=== PATIENT | female | born 1995 | race Caucasian/White ===

== ENCOUNTER 2017-01-03 20:42 | Emergency (ER) | payer MEDICAID ==
[~2017-01-03] VITALS: Ht 160 cm; Wt 61.7 kg
[~2017-01-03 20:42] MED LIST: ACET-2267 PO; ACET325T38 PO; BCP PO; BUTA1TAB55 PO; DOCU100C37 PO; FERR-84 PO; HYDR-34 PO; HYDR-3714 PO; HYDR-3820 PO; HYDR-757 PO; HYDR1TAB PO; IBUP-1780 PO; LACT1CAP64 PO; METH4TAB PO; METR500T PO; NORE1TAB43 PO; NYST1000 PO; OXYC-465 PO; PARO20TA5 PO; PENI500T PO; PREN1TAB86 PO; PRM25T PO; SERT50TA9 PO; SULF1TAB38 PO; SUMA25TA3 PO; TYLOX PO; [UNRECOGNIZED DRUG - OTHER] PO
--- OUTSIDE RECORDS SUMMARY | 2017-01-03 20:48 | XMS REPORT ---
Author Author KENNEDI ANN Organization [facility] Address [address] [place] [address] Care Team Providers Care Valet Parking Attendant Name Role Phone KENNEDI ANN Unavailable PROBLEMS Type Condition ICD9-CM Code [id number] Code Onset Dates Condition Status SNOMED Code Assessment care in third trimester Z34.93 Jun, Active ALLERGIES Substance Reaction Event Type Date Status Decadron Unknown Non Drug Allergy Jun, Active SOCIAL HISTORY No smoking Hx information available PLAN OF CARE VITAL SIGNS Height 63.25 in 2016-06-30 Weight 167.1 lbs 2016-06-30 Heart Rate 84 bpm 2016-06-30 Respiratory Rate 18 2016-06-30 BMI 29.367 kg/m2 2016-06-30 Blood pressure systolic 118 mmHg 2016-06-30 Blood pressure diastolic 74 mmHg 2016-06-30 MEDICATIONS Medication Instructions Dosage Frequency Start Date End Date Duration Status Zofran 4 MG Orally 2 times a day 1 tablet as needed 12h Nov, 30 days Active Tylenol 325 MG Orally every 6 hrs 1 tablet as needed 6h Active Docusate Sodium 100 MG Orally twice a day 1 capsule as needed 12h 07 Jun, 2016 Jul, 30 day(s) Active Ferrous Sulfate 324 (65 Fe) MG Orally twice a day 1 tablet 12h Mar, 30 day(s) Active Classic 28-0.8 MG Orally Once a day as directed 24h Nov, 90 days Active RESULTS Name Result Date Reference Range UA OB DIP (IN HOUSE) 2016-06-30 Glucose Negative Protein negative PROCEDURES Procedure Date Ordered Related Diagnosis Body Site URINE-NO MICRO Jun 30, 2016 Office Visit, Est Pt., Level 3 Jun 30, 2016 IMMUNIZATIONS No Known Immunizations
[2017-01-03 22:01] LABS: BASOPHILS % (AUTO) 0 % (0-10); EOSINOPHILS # (AUTO) 0.2 10^3/uL (0.0-0.3); EOSINOPHILS % (AUTO) 3 % (0-10); LYMPHOCYTES % (AUTO) 39 % (12-44); MEAN CORPUSCULAR HEMOGLOBIN 31 PG (25-34); MEAN CORPUSCULAR HGB CONC 34 G/DL (32-36); MEAN CORPUSCULAR VOLUME 89 FL (80-99); MEAN PLATELET VOLUME 10.9 FL (7.4-10.4); MONOCYTES # (AUTO) 0.5 X 10^3 (0.0-1.0); MONOCYTES % (AUTO) 7 % (0-12); NEUTROPHILS % (AUTO) 52 % (42-75); PLATELET COUNT 233 10^3/uL (130-400); RED BLOOD COUNT 4.17 10^6/uL (4.35-5.85); RED CELL DISTRIBUTION WIDTH 13.7 % (10.0-14.5); WHITE BLOOD COUNT 7.7 10^3/uL (4.3-11.0)
[2017-01-03 22:08] LABS: BILIRUBIN,URINE NEGATIVE (NEGATIVE); KETONES,URINE 1+ (NEGATIVE); LEUKOCYTE ESTERASE ,URINE 2+ (NEGATIVE); NITRITE,URINE NEGATIVE (NEGATIVE); PH,URINE 5 (5-9); PROTEIN,URINE 3+ (NEGATIVE); UROBILINOGEN,URINE NORMAL (NORMAL)
--- NOTE | 2017-01-03 22:08 | ED GU-Female ---
General Chief Complaint: -Female Stated Complaint: MENSTRUATING X 1 MONTH,PASSING CLOTS Nursing Triage Note: Pt. advised she has been experiencing vaginal bleeding for approx. 42 days and has been experiencing severe cramping. Nursing Sepsis Screen: No Definite Risk Source: patient Exam Limitations: no limitations History of Present Illness Time seen by provider: 22:08 Initial Comments 21-year-old female patient presents to the emergency department with 42 day onset of vaginal bleeding. Patient reports she has had lower abdominal cramping intermittently. States she was taken off of her control shortly before the vaginal bleeding began. Patient states she has always been irregular. Today only has spotting. Timing/Duration: intermittent, other (42 day onset) Severity/Quality: cramping Location: suprapubic Radiation: none Activities at Onset: none Prior Genitourinary Problems: similar symptoms Allergies and Home Medications Allergies Coded Allergies: dexamethasone (Unverified Adverse Reaction, Intermediate, 09/04/13) Home Medications Hydrocodone/Acetaminophen 1 Each Tablet, 1 TAB PO Q6H, #20 Prescribed by: BRII LEIVA on 09/27/16 1333 Metronidazole 500 Mg Tablet, 500 MG PO BID, #14 Ref 0 Prescribed by: YAJAIRA PÉREZ on 01/04/17 0001 Nitrofurantoin Monohyd/M-Cryst 100 Mg Capsule, 1 TAB PO BID, #14 Ref 0 Prescribed by: YAJAIRA PÉREZ on 01/04/17 0000 Tramadol HCl 50 Mg Tablet, 50 MG PO Q4H PRN for PAIN, #14 Ref 0 Prescribed by: YAJAIRA PÉREZ on 01/04/17 0000 Constitutional: No chills, No diaphoresis, No dizziness, No fever, No malaise, No weakness Respiratory: No cough, No short of breath Cardiovascular: No chest pain, No palpitations, No syncope Gastrointestinal: see HPI, abdominal pain (suprapubic abdominal cramping), No constipation, No diarrhea, No hematemesis, No loss of appetite, No melena, No nausea, No vomiting Genitourinary: see HPI, denies burning, denies discharge, denies dysuria, denies frequency, denies flank pain, denies hematuria, pain, other (vaginal bleeding) Musculoskeletal: no symptoms reported Skin: no symptoms reported Psychiatric/Neurological: No Symptoms Reported Hematologic/Lymphatic: See HPI, Denies Anemia, Denies Blood Clots, Denies Easy Bleeding, Denies Easy Bruising, Denies Swollen Glands All Other Systemes Reviewed Negative Unless Noted: Yes (Negative excepted noted.) Past Eqquant-Nxjyhl-Wjmscx Hx Patient Social History Alcohol Use: Denies Use Recreational Drug Use: No Drug of Choice: methamphetamines Type Used: Cigarettes Recent Foreign Travel: No Contact w/Someone Who Travel: No Recent Infectious Disease Expo: No Recent Hopitalizations: Yes ( et hematoma removal) Immunizations Up To Date Tetanus Booster (TDap): Less than 5yrs Date of Influenza Vaccine: Jun 17, 2016 Seasonal Allergies Seasonal Allergies: No Surgeries HX Surgeries: Yes (KIDNEY STONE REMOVAL; X 1) Surgeries: Section, Tonsillectomy Respiratory Hx Respiratory Disorders: No Cardiovascular Hx Cardiac Disorders: No Neurological Hx Neurological Disorders: No Reproductive System : No Hx : 1 Hx Para: 1 Hx Reproductive Disorders: No Sexually Transmitted Disease: No HIV/AIDS: No Female Reproductive Disorders: Menstrual Problems (history of irregular menstrual cycles) Genitourinary Hx Genitourinary Disorders: Yes Genitourinary Disorders: Kidney Stones Gastrointestinal Hx Gastrointestinal Disorders: Yes Gastrointestinal Disorders: Gall Bladder Disease Musculoskeletal Hx Musculoskeletal Disorders: No Endocrine Hx Endocrine Disorders: No HEENT HX ENT Disorders: Yes HEENT Disorders: Tonsilitis Cancer Hx Cancer: No Psychosocial Hx Psychiatric Problems: No Integumentary HX Skin/Integumentary Disorder: No Blood Transfusions Hx Blood Disorders: No Reviewed Nursing Assessment Reviewed/Agree w Nursing PMH: Yes Family Medical History Significant Family History: No Pertinent Family Hx Family Medial History: Patient reports no known family medical history. Physical Exam Vital Signs Capillary Refill : Less Than 3 Seconds General Appearance: WD/WN, no apparent distress Cardiovascular: normal peripheral pulses, regular rate, rhythm, no edema, no murmur Respiratory: lungs clear, normal breath sounds, no respiratory distress Gastrointestinal: normal bowel sounds, soft, no organomegaly, No distended, guarding (suprapubic), No rebound, tenderness (suprapubic), No hernia, No mass Pelvic: normal external exam, normal adnexa, no cerv. motion tender, no masses , discharge (off-white discharge with a small amount of dark blood noted in the vagina.), No lesions, vaginal bleeding (small amount of dark blood noted.), other (suprapubic tenderness noted.) Back: normal inspection, no CVA tenderness Extremities: no pedal edema, normal capillary refill Neurologic/Psychiatric: alert, normal mood/affect, oriented x 3 Skin: normal color, warm/dry Focused Exam Lactic Acid Level Progress/Results/Core Measures Results/Orders Lab Results My Orders Vital Signs/I&O Blood Pressure Mean: 94 Point of Care Testing Urine -Bedside: Negative Diagnostic Imaging Diagonstic Imaging: Ultrasound Plain Films/CT/US/NM/MRI: pelvis Comments Unremarkable uterus. Normal thickness endometrium. Right ovary unremarkable. Left ovary not visualized. No free fluid noted. Reviewed: Other ([facility] report reviewed.) Departure Communication Progress Notes Laboratory and diagnostic findings discussed with the patient. Patient reports improvement in symptoms with morphine. Plan for discharge to home. Patient instructed to follow-up as an outpatient with the air transport professionals of her choice or her primary care physician. Patient given prescriptions for Flagyl, tramadol, and Macrobid. Impression Impression: Primary Impression: Bacterial vaginosis Additional Impressions: Menorrhagia Urinary tract infection Disposition: HOME, SELF-CARE Condition: Improved Departure-Patient Inst. Decision time for Depature: 23:59 Referrals: CAMERON YIN DANIEL J MD (PCP/Family) Primary Care Physician EUGENE CALHOUN MD, ANGELA C DO Patient Instructions: Bacterial Vaginosis (DC), IRREGULAR VAGINAL BLEEDING Add. Discharge Instructions: All discharge instructions reviewed with patient and/or family. Voiced understanding. Medications as instructed. Tylenol Extra Strength over-the- counter as directed for pain. Ibuprofen 800 mg by mouth every 8 hours as needed for pain. Follow-up with the air transport professionals of your choice for recheck and possible need for further evaluation. Call tomorrow morning for appointment time. Return to the emergency department for worsened symptoms or any other concerns. Scripts Metronidazole (Metronidazole) 500 Mg Tablet 500 MG PO BID, #14 TAB 0 Refills Prov: YAJAIRA PÉREZ 01/04/17 Tramadol HCl (Tramadol HCl) 50 Mg Tablet 50 MG PO Q4H Y for PAIN, #14 TAB 0 Refills Prov: YAJAIRA PÉREZ 01/04/17 Nitrofurantoin Monohyd/M-Cryst (Macrobid 100 mg Capsule) 100 Mg Capsule 1 TAB PO BID, #14 CAP 0 Refills Prov: YAJAIRA PÉREZ 01/04/17 YAJAIRA PÉREZ Jan 03, 2017 22:08
[2017-01-03 22:09] LABS: PROTHROMBIN TIME PATIENT 13.1 SEC (12.2-14.7)
[2017-01-03 22:18] LABS: ALANINE AMINOTRANSFERASE 17 U/L (0-55); ALBUMIN 4.8 G/DL (3.2-4.5); ANION GAP 11 MMOL/L (5-14); ASPARTATE AMINO TRANSFERASE 14 U/L (5-34); BILIRUBIN,TOTAL 0.5 MG/DL (0.1-1.0); BLOOD UREA NITROGEN 12 MG/DL (7-18); BUN/CREATININE RATIO 15; CALCIUM 9.6 MG/DL (8.5-10.1); CARBON DIOXIDE 22 MMOL/L (21-32); CHLORIDE 110 MMOL/L (98-107); GFR ESTIMATED > 60; GLUCOSE 106 MG/DL (70-105); POTASSIUM 3.5 MMOL/L (3.6-5.0); SODIUM 143 MMOL/L (135-145)
[2017-01-03] MEDS ORDERED: morphine INJ 10 MG/ML 1ML (SYR OR VIAL) IM STA (22:22)
[2017-01-04] MEDS ORDERED: TRAM50TA2 PO
[2017-01-04] MEDS ORDERED: NITR-65 PO
[2017-01-04] MEDS ORDERED: METR500T21 PO (00:01)
[2017-01-04 00:59] VITALS: BP 117/78
--- NOTE | 2017-01-04 08:04 | Diagnostic Imaging Report ---
INDICATION: Dysfunctional uterine bleeding since October. COMPARISON: 07/22/2016. DISCUSSION: Transvaginal sonographic evaluation of the pelvis was performed. The uterus is normal in echotexture and size measuring 8.2 x 5.0 x 3.6 cm. Normal endometrial thickness measuring 0.2 cm. The left ovary was nonvisualized, possibly obscured due to bowel. The right ovary is normal in echotexture and size with normal color Doppler blood flow. Normal follicular activity within the right ovary. The right ovary measures 4.9 x 2.2 x 3.5 cm. No abnormal adnexal mass or fluid. IMPRESSION: 1. Nonvisualization of the left ovary. Otherwise unremarkable pelvic ultrasound. 2. Agree with preliminary report. Dictated by: Dictated on workstation # [id number]
== END 2017-01-04 00:59 | disposition home or self-care (01) ==
LOC: EDUNIT# 20:42 → ER 20:44
DX: N92.0 Excessive and frequent menstruation with regular cycle (principal); N76.0 Acute vaginitis; N30.91 Cystitis, unspecified with hematuria
CPT/HCPCS: 36415; 76830; 80053; 81000; 84443; 84703; 85025; 85610; 85730; 87070; 87088; 87210; 87491; 87591; 96372; 99284

== ENCOUNTER 2017-06-13 09:55 | Emergency (ER) | payer MEDICAID ==
[~2017-06-13] VITALS: Ht 160 cm; Wt 61.7 kg
[~2017-06-13 09:55] MED LIST changes: +METR500T21 PO; +NITR-65 PO; +TRAM50TA2 PO
--- NOTE | 2017-06-13 11:41 | ED Headache ---
General Chief Complaint: Head/Cervical Problems Stated Complaint: MIGRAINE Nursing Sepsis Screen: No Definite Risk Source: patient Exam Limitations: no limitations History of Present Illness Time seen by provider: 11:39 Initial Comments To ER with a left-sided migraine headache for 3 days. She was seen at [facility] and given Toradol Benadryl and nausea medicine witH only temporary improvement. She went home and slept and the pain returned upon awakening the next day. She has a history of migraines and this is typical for her. Severity/Quality: moderate Location: temporal Associated Symptoms: nausea/vomiting Allergies and Home Medications Allergies Coded Allergies: dexamethasone (Unverified Adverse Reaction, Intermediate, 09/04/13) Constitutional: see HPI Eyes: No Symptoms Reported Ears, Nose, Mouth, Throat: no symptoms reported Respiratory: no symptoms reported Cardiovascular: no symptoms reported Genitourinary: no symptoms reported Musculoskeletal: no symptoms reported Skin: no symptoms reported Psychiatric/Neurological: Headache Past Mhysuvn-Gjvmed-Vvrndg Hx Patient Social History Alcohol Use: Occasionally Uses Number of Drinks Today: Alcohol Beverage of Choice: Wine Recreational Drug Use: No Drug of Choice: methamphetamines Type Used: Cigarettes Former Smoker, Quit: Oct 17, 2015 Recent Foreign Travel: No Contact w/Someone Who Travel: No Recent Infectious Disease Expo: No Recent Hopitalizations: Yes ( et hematoma removal) Immunizations Up To Date Tetanus Booster (TDap): Less than 5yrs Date of Influenza Vaccine: Jun 17, 2016 Seasonal Allergies Seasonal Allergies: No Surgeries History of Surgeries: Yes (KIDNEY STONE REMOVAL; X 1) Surgeries: Section, Gallbladder, Tonsillectomy Respiratory History of Respiratory Disorde: No Cardiovascular History of Cardiac Disorders: No Neurological History of Neurological Disord: Yes Neurological Disorders: Headaches /Migraines Reproductive System Hx Reproductive Disorders: No Sexually Transmitted Disease: No HIV/AIDS: No Female Reproductive Disorders: Menstrual Problems Genitourinary History of Genitourinary Disor: Yes Genitourinary Disorders: Kidney Stones Gastrointestinal History of Gastrointestinal Di: Yes Gastrointestinal Disorders: Gall Bladder Disease Musculoskeletal History of Musculoskeletal Dis: No Endocrine History of Endocrine Disorders: No HEENT HEENT Disorders: Tonsilitis Cancer History of Cancer: No Psychosocial History of Psychiatric Problem: No Integumentary History of Skin or Integumenta: No Blood Transfusions History of Blood Disorders: No Family Medical History Significant Family History: No Pertinent Family Hx Family Medial History: Patient reports no known family medical history. Physical Exam Vital Signs Vital Sign - Last 12Hours 06/13/17 10:20 Temp 97.4 Pulse 56 Resp 18 B/P (MAP) 113/58 Pulse Ox 98 O2 Delivery Room Air Capillary Refill : Less Than 3 Seconds General Appearance: WD/WN, no apparent distress HEENT: PERRL/EOMI, normal ENT inspection Neck: non-tender, full range of motion Respiratory: normal breath sounds, no respiratory distress, no accessory muscle use Gastrointestinal: normal bowel sounds, non tender, soft Extremities: normal range of motion, non-tender Psychiatric: alert, oriented x 3 Crainal Nerves: normal hearing, normal speech, PERRL Skin: normal color, warm/dry Progress/Results/Core Measures Results/Orders My Orders Orders - ALEX RODRIGUEZ APRN Saline Lock/Iv-Start (06/13/17 11:33) Ketorolac Injection (Toradol Injection) (06/13/17 11:45) Ns Iv 1000 Ml (Sodium Chloride 0.9%) (06/13/17 11:45) Prochlorperazine Injection (Compazine In (06/13/17 11:45) Diphenhydramine Injection (Benadryl Inje (06/13/17 11:45) Vital Signs/I&O Vital Sign - Last 12Hours 06/13/17 10:20 Temp 97.4 Pulse 56 Resp 18 B/P (MAP) 113/58 Pulse Ox 98 O2 Delivery Room Air Blood Pressure Mean: 76 Departure Impression Impression: Primary Impression: Headache Disposition: 01 HOME, SELF-CARE Condition: Stable Departure-Patient Inst. Decision time for Depature: 11:41 Referrals: KENNEDI ANN MD (PCP/Family) Primary Care Physician Patient Instructions: Headache, Adult (DC) Add. Discharge Instructions: 1. Return to ER for any concerns 2. Follow-up with your doctor next week 3. All discharge instructions reviewed with patient and/or family. Voiced understanding. ALEX RODRIGUEZ APRN Jun 13, 2017 11:41
[2017-06-13] MEDS ORDERED: KETOROLAC 30 MG/ML VIAL IVP ONE (11:45)
[2017-06-13] MEDS ORDERED: diphenhydrAMINE 50 MG/ML INJ (BENADRYL) IVP ONE (11:45)
[2017-06-13] MEDS ORDERED: PROCHLORPERAZINE 10 MG/2ML INJ (COMPAZINE) IV ONE (11:45)
[2017-06-13] MEDS ORDERED: NS IV 1000 ML 1,000 ML IV SCH (11:45)
[2017-06-13 12:19] VITALS: BP 120/65
--- OUTSIDE RECORDS SUMMARY | 2017-06-13 13:22 | XMS REPORT ---
Author Author KENNEDI ANN Organization [facility] Address [address] [place] [address] Care Team Providers Care Building Performance Consultant Name Role Phone KENNEDI ANN Unavailable PROBLEMS Type Condition ICD9-CM Code [id number] Code Onset Dates Condition Status SNOMED Code [...]
--- OUTSIDE RECORDS SUMMARY | 2017-06-13 13:22 | XMS REPORT ---
Author Author KENNEDI ANN [facility] Address [address] [place] [address] Care Team Providers Care Tv News Director Name Role Phone KENNEDI ANN Unavailable PROBLEMS Unknown Problems ALLERGIES Unknown Allergies SOCIAL HISTORY No smoking Hx information available PLAN OF CARE VITAL SIGNS MEDICATIONS Unknown Medications RESULTS No Results PROCEDURES No Known procedures IMMUNIZATIONS No Known Immunizations
--- OUTSIDE RECORDS SUMMARY | 2017-06-13 13:22 | XMS REPORT ---
Author Author KENNEDI ANN [facility] Address [address] [place] [address] Care Team Providers Care Chocolate Refining Roller Name Role Phone KENNEDI ANN Unavailable PROBLEMS Unknown Problems ALLERGIES Unknown Allergies SOCIAL HISTORY No smoking Hx information available PLAN OF CARE VITAL SIGNS MEDICATIONS Unknown Medications RESULTS No Results PROCEDURES No Known procedures IMMUNIZATIONS No Known Immunizations
--- OUTSIDE RECORDS SUMMARY | 2017-06-13 13:22 | XMS REPORT ---
Author Author KENNEDI ANN [facility] Address [address] [place] [address] Care Team Providers Care Metal Reed Tuner Name Role Phone KENNEDI ANN Unavailable PROBLEMS Unknown Problems ALLERGIES Unknown Allergies SOCIAL HISTORY No smoking Hx information available PLAN OF CARE VITAL SIGNS MEDICATIONS Unknown Medications RESULTS No Results PROCEDURES No Known procedures IMMUNIZATIONS No Known Immunizations
--- OUTSIDE RECORDS SUMMARY | 2017-06-13 13:23 | XMS REPORT ---
Author KENNEDI Garduno [facility] [employer] Address Unknown Phone Unavailable Care Team Providers Care Property And Equipment Clerk Name Role Phone KENNEDI ANN CP Unavailable Allergies, Adverse Reactions, Alerts Substance Reaction Event Type Decadron Info Not Available Non Drug Allergy Problems Problem Type Condition Code Onset Dates Condition Status Assessment care in third trimester Z34.93 Active Medications Medication Code System Code Instructions Start Date End Date Status Dosage Zofran [facility] [address]-34 4 MG Orally 2 times a day Dec 09, 2015 1 tablet as needed Classic [facility] [address]-45 28-0.8 MG Orally Once a day Dec 09, [address] as [address] [facility] [address]-69 324 (65 Fe) MG Orally twice a day March [address] [facility] [address]-06 325 MG Orally every 6 hrs 1 tablet as needed Docusate Sodium [facility] [address]-36 100 MG Orally twice a day Jun 23, 2016 Jul 23, 2016 1 capsule as needed Procedures Procedure Coding System Code Date Office Visit, Est Pt., Level 3 CPT-4 43897 Jul 14, 2016 URINE-NO MICRO CPT-4 13927 Jul 14, 2016 Vital Signs Date/Time: Jul 14, 2016 Cardiac Monitoring Heart Rate 84 bpm Weight 170.6 lbs Height 63.25 in BMI 29.982 Index Blood Pressure Diastolic 78 mmHg Blood Pressure Systolic 124 mmHg Results Name Result Date Reference Range Unit Abnormality Flag UA OB DIP (IN HOUSE) ----Glucose Negative 20160714 ----Protein Trace [id number] Summary Purpose eClinicalWorks Submission
--- OUTSIDE RECORDS SUMMARY | 2017-06-13 13:23 | XMS REPORT ---
Author Author BLAIR KAUR Organization [employer] Address Unknown Phone Unavailable Care Team Providers Care Aircraft Tool Maker Name Role Phone BLAIR KAUR Unavailable Allergies No Known Allergies Problems Problem Type Condition Code Onset Dates Condition Status Problem Post depression F53 Active Problem Dysuria R30.0 Active Problem Generalized anxiety disorder F41.1 Active Medications No Known Medications Results No Known Results Summary Purpose [employer] Submission
--- OUTSIDE RECORDS SUMMARY | 2017-06-13 13:23 | XMS REPORT ---
Author Author BLAIR KAUR Organization [employer] Address Unknown Phone Unavailable Care Team Providers Care Cash Management Officer Name Role Phone BLAIR KAUR Unavailable Allergies No Known Allergies Problems No Known Problems Medications No Known Medications Results No Known Results Summary Purpose [employer] Submission
--- OUTSIDE RECORDS SUMMARY | 2017-06-13 13:23 | XMS REPORT ---
Author Author KENNEDI ANN Organization [employer] Address Unknown Phone Unavailable Care Team Providers Care Program Aide Name Role Phone KENNEDI ANN CP Unavailable Allergies No Known Allergies Problems Problem Type Condition Code Onset Dates Condition Status Assessment Normal , first Z34.00 Active Medications No Known Medications Procedures Procedure Coding System Code Date Office Visit, Est Pt., Level 3 CPT-4 26372 May 19, 2016 URINE-NO MICRO CPT-4 17012 May 19, 2016 Vital Signs Date/Time: May 19, 2016 Cardiac Monitoring Heart Rate 84 bpm Weight 155.5 lbs Height 63.25 in BMI 27.33 Index Blood Pressure Diastolic 78 mmHg Blood Pressure Systolic 128 mmHg Results No Known Results Summary Purpose [employer] Submission
--- OUTSIDE RECORDS SUMMARY | 2017-06-13 13:23 | XMS REPORT ---
Author Author JV STRATTON Organization [facility] Address [address] [place] [address] Care Team Providers Care Liquor Merchant Name Role Phone CHAYITO JV Unavailable PROBLEMS Type Condition ICD9-CM Code [id number] Code Onset Dates Condition Status SNOMED Code Assessment care in third trimester Z34.93 Jun, Active Assessment 39 weeks gestation of Z3A.39 Jun, Active [id number] ALLERGIES Substance Reaction Event Type Date Status Decadron Unknown Non Drug Allergy Jun, Active SOCIAL HISTORY No smoking Hx information available PLAN OF CARE VITAL SIGNS Height 63.25 in 2016-07-07 Weight 171 lbs 2016-07-07 Heart Rate 80 bpm 2016-07-07 Respiratory Rate 18 2016-07-07 BMI 30.052 kg/m2 2016-07-07 Blood pressure systolic 120 mmHg 2016-07-07 Blood pressure diastolic 68 mmHg 2016-07-07 MEDICATIONS Medication Instructions Dosage Frequency Start Date End Date Duration Status Ferrous Sulfate 324 (65 Fe) MG Orally twice a day 1 tablet 12h 22 Mar, 2016 30 day(s) Active Classic 28-0.8 MG Orally Once a day as directed 24h Nov, 90 days Active Docusate Sodium 100 MG Orally twice a day 1 capsule as needed 12h 07 Jun, 2016 Jul, 30 day(s) Active Zofran 4 MG Orally 2 times a day 1 tablet as needed 12h Nov, 30 days Active Tylenol 325 MG Orally every 6 hrs 1 tablet as needed 6h Active RESULTS Name Result Date Reference Range UA OB DIP (IN HOUSE) 2016-07-07 Glucose Negative Protein Trace PROCEDURES Procedure Date Ordered Related Diagnosis Body Site URINE-NO MICRO Jul 07, 2016 Office Visit, Est Pt., Level 2 Jul 07, 2016 IMMUNIZATIONS No Known Immunizations
--- OUTSIDE RECORDS SUMMARY | 2017-06-13 13:23 | XMS REPORT ---
Author Author KENNEDI ANN Organization [employer] Address Unknown Phone Unavailable Care Team Providers Care Associate Attorney Name Role Phone KENNEDI ANN Unavailable Allergies No Known Allergies Problems No Known Problems Medications No Known Medications Results No Known Results Summary Purpose [employer] Submission
--- OUTSIDE RECORDS SUMMARY | 2017-06-13 13:23 | XMS REPORT ---
Author Author JV STRATTON [facility] [employer] Address Unknown Phone Unavailable Care Team Providers Care Fibre Technologist Name Role Phone JV STRATTON Unavailable Allergies No Known Allergies Problems No Known Problems Medications No Known Medications Results No Known Results Summary Purpose [employer]ClinicalWorks Submission
--- OUTSIDE RECORDS SUMMARY | 2017-06-13 13:23 | XMS REPORT ---
Author BLAIR Lopez Organization [employer] Address Unknown Phone Unavailable Care Team Providers Care V/Stol Landing Signal Officer Name Role Phone BLAIR KAUR CP Unavailable Allergies No Known Allergies Problems Problem Type Condition Code Onset Dates Condition Status Problem Dysuria R30.0 Active Problem Major depressive disorder, single episode, unspecified F32.9 Active Medications No Known Medications Results No Known Results Summary Purpose [employer]ClinicalWorks Submission
--- OUTSIDE RECORDS SUMMARY | 2017-06-13 13:23 | XMS REPORT ---
Author YOVANNY Strauss [facility] [employer] Address Unknown Phone Unavailable Care Team Providers Care Terrazzo Polisher Name Role Phone YOVANNY MONTES CP Unavailable Allergies No Known Allergies Problems Problem Type Condition Code Onset Dates Condition Status Problem Post depression F53 Active Problem Major depressive disorder, single episode, unspecified F32.9 Active Problem Generalized anxiety disorder F41.1 Active Problem Dysuria R30.0 Active Medications No Known Medications Results No Known Results Summary Purpose [employer]ClinicalWorks Submission
--- OUTSIDE RECORDS SUMMARY | 2017-06-13 13:24 | XMS REPORT ---
Author Author KENNEDI ANN Organization [facility] Address [address] [place] [address] Care Team Providers Care Furniture Finisher Name Role Phone KENNEDI ANN Unavailable PROBLEMS Type Condition ICD9-CM Code [id number] Code Onset Dates Condition Status SNOMED Code Assessment care in third trimester Z34.93 May, Active ALLERGIES Unknown Allergies SOCIAL HISTORY No smoking Hx information available PLAN OF CARE VITAL SIGNS Height 63.25 in 2016-06-16 Weight 163.9 lbs 2016-06-16 BMI 28.805 kg/m2 2016-06-16 Blood pressure systolic 128 mmHg 2016-06-16 Blood pressure diastolic 76 mmHg 2016-06-16 MEDICATIONS Medication Instructions Dosage Frequency Start Date End Date Duration Status Zofran 4 MG Orally 3 times a day 1 tablet as needed 8h Nov, Active Classic 28-0.8 MG as directed Nov, Active Tylenol 325 MG Orally every 6 hrs 1 tablet as needed 6h Active Ferrous Sulfate 324 (65 Fe) MG Orally twice a day 1 tablet 12h Mar, 30 day(s) Active RESULTS Name Result Date Reference Range CULTURE, GROUP B STREP (VAGINAL) 2016-06-16 Strep Gp B Culture Negative Negative UA OB DIP (IN HOUSE) 2016-06-16 Glucose negative Protein trace PROCEDURES Procedure Date Ordered Related Diagnosis Body Site URINE-NO MICRO Jun 16, 2016 Office Visit, Est Pt., Level 3 Jun 16, 2016 LAB NOT BILLED BY [facility] Jun 16, 2016 IMMUNIZATIONS No Known Immunizations
--- OUTSIDE RECORDS SUMMARY | 2017-06-13 13:24 | XMS REPORT ---
Author Author BLAIR KAUR Organization [employer] Address Unknown Phone Unavailable Care Team Providers Care Precision Honer Name Role Phone BLAIR KAUR CP Unavailable Allergies, Adverse Reactions, Alerts Substance Reaction Event Type Decadron Info Not Available Non Drug Allergy Problems Problem Type Condition Code Onset Dates Condition Status Assessment Post depression F53 Active Medications Medication Code System Code Instructions Start Date End Date Status Dosage Tylenol [facility] [address]-50 325 MG Orally every 6 hrs 1 tablet as needed Sertraline HCl [facility] [address]-64 50 MG Orally Once a day Aug 02, 2016 1/2 tab daily for the first week, then full tablet daily Classic [facility] [address]-12 28-0.8 MG Orally Once a day Dec 09, 2015 as directed Procedures Procedure Coding System Code Date Office Visit, Est Pt., Level 4 CPT-4 85738 Aug 02, 2016 Vital Signs Date/Time: Aug 02, 2016 Cardiac Monitoring Heart Rate 70 bpm Weight 149.6 lbs Height 63.25 in BMI 26.29 Index Blood Pressure Diastolic 70 mmHg Blood Pressure Systolic 108 mmHg Results No Known Results Summary Purpose [employer] Submission
--- OUTSIDE RECORDS SUMMARY | 2017-06-13 13:24 | XMS REPORT ---
Author YOVANNY Strauss Organization [employer] Address Unknown Phone Unavailable Care Team Providers Care Batch Attendant Name Role Phone YOVANNY MONTES CP Unavailable Allergies No Known Allergies Problems Problem Type Condition Code Onset Dates Condition Status Problem Post depression F53 Active Problem Dysuria R30.0 Active Problem Generalized anxiety disorder F41.1 Active Medications No Known Medications Results No Known Results Summary Purpose [employer] Submission
--- OUTSIDE RECORDS SUMMARY | 2017-06-13 13:24 | XMS REPORT ---
Author Author JV STRATTON [facility] Address [address] [place] [address] Care Team Providers Care Pantographer Name Role Phone JV STRATTON Unavailable PROBLEMS Unknown Problems ALLERGIES Unknown Allergies SOCIAL HISTORY No smoking Hx information available PLAN OF CARE VITAL SIGNS MEDICATIONS Unknown Medications RESULTS No Results PROCEDURES No Known procedures IMMUNIZATIONS No Known Immunizations
--- OUTSIDE RECORDS SUMMARY | 2017-06-13 13:24 | XMS REPORT ---
Author Author JV STRATTON [facility] Address [address] [place] [address] Care Team Providers Care Welding Process Engineer Name Role Phone JV STRATTON Unavailable PROBLEMS Unknown Problems ALLERGIES Unknown Allergies SOCIAL HISTORY No smoking Hx information available PLAN OF CARE VITAL SIGNS MEDICATIONS Unknown Medications RESULTS No Results PROCEDURES No Known procedures IMMUNIZATIONS No Known Immunizations
--- OUTSIDE RECORDS SUMMARY | 2017-06-13 13:24 | XMS REPORT ---
Author Author KENNEDI ANN Organization [facility] Address [address] [place] [address] Care Team Providers Care Rivet Flunky Name Role Phone KENNEDI ANN Unavailable PROBLEMS Type Condition ICD9-CM Code [id number] Code Onset Dates Condition Status SNOMED Code Problem Generalized anxiety disorder F41.1 Active 26733797 Problem Post depression F53 Active 31171164 Assessment Encounter for Depo-Provera contraception Z30.42 Aug, Active 988724358 Problem Dysuria R30.0 Active 02761924 Assessment Post depression F53 Aug, Active 85514881 ALLERGIES Substance Reaction Event Type Date Status Decadron Unknown Non Drug Allergy Aug, Active SOCIAL HISTORY No smoking Hx information available PLAN OF CARE VITAL SIGNS Height 63.25 in 2016-09-08 Weight 133 lbs 2016-09-08 Heart Rate 90 bpm 2016-09-08 Respiratory Rate 16 2016-09-08 BMI 23.37 kg/m2 2016-09-08 Blood pressure systolic 112 mmHg 2016-09-08 Blood pressure diastolic 80 mmHg 2016-09-08 MEDICATIONS Medication Instructions Dosage Frequency Start Date End Date Duration Status Sertraline HCl 50 MG Orally Once a day 1 tablet 24h Aug, 30 day (s) Active Abilify 2 MG Orally Once a day 1 tablet 24h Aug, Active Paxil 20 MG Orally Once a day 1 tablet in the morning 24h Jul, 30 day(s) Active RESULTS No Results PROCEDURES Procedure Date Ordered Related Diagnosis Body Site Office Visit, Est Pt., Level 3 Sep 08, 2016 DEPO PROVERA (150 MG/ML) Sep 08, 2016 THER/PROPH/DIAG INJ, SC/IM Sep 08, 2016 IMMUNIZATIONS Vaccine Route Administration Date Status DEPO PROVERA (150 MG/ML) IM Intramuscular Sep 08, 2016 Administered
--- OUTSIDE RECORDS SUMMARY | 2017-06-13 13:24 | XMS REPORT ---
Author Author SHIVAM JOHNSON [facility] [employer] Address Unknown Phone Unavailable Care Team Providers Care Skiver Hand Name Role Phone SHIVAM JOHNSON CP Unavailable Allergies, Adverse Reactions, Alerts Substance Reaction Event Type Decadron Info Not Available Non Drug Allergy Problems Problem Type Condition Code Onset Dates Condition Status Problem Post depression F53 Active Problem Dysuria R30.0 Active Problem Generalized anxiety disorder F41.1 Active Assessment Generalized anxiety disorder F41.1 Active Assessment depression F53 Active Medications No Known Medications Procedures Procedure Coding System Code Date Psychotherapy, patient &/family, 30 minutes, established patient CPT-4 24590 Aug 23, 2016 Results No Known Results Summary Purpose [employer] Submission
--- OUTSIDE RECORDS SUMMARY | 2017-06-13 13:24 | XMS REPORT ---
Author Author KENNEDI ANN Organization [employer] Address Unknown Phone Unavailable Care Team Providers Care Hull Molder Name Role Phone KENNEDI ANN Unavailable Allergies No Known Allergies Problems No Known Problems Medications No Known Medications Results No Known Results Summary Purpose [employer] Submission
--- OUTSIDE RECORDS SUMMARY | 2017-06-13 13:24 | XMS REPORT ---
Author Author KENNEDI ANN Organization [employer] Address Unknown Phone Unavailable Care Team Providers Care Pouncer Machine Name Role Phone KENNEDI ANN Unavailable Allergies No Known Allergies Problems No Known Problems Medications No Known Medications Results No Known Results Summary Purpose [employer] Submission
--- OUTSIDE RECORDS SUMMARY | 2017-06-13 13:24 | XMS REPORT ---
Author YOVANNY Strauss Organization [employer] Address Unknown Phone Unavailable Care Team Providers Care Plastic Mould Maker Name Role Phone YOVANNY MONTES CP Unavailable Allergies No Known Allergies Problems Problem Type Condition Code Onset Dates Condition Status Problem Post depression F53 Active Problem Dysuria R30.0 Active Problem Generalized anxiety disorder F41.1 Active Medications No Known Medications Results No Known Results Summary Purpose [employer] Submission
--- OUTSIDE RECORDS SUMMARY | 2017-06-13 13:24 | XMS REPORT ---
Author Author KENNEDI ANN Organization [employer] Address Unknown Phone Unavailable Care Team Providers Care Coating Line Worker Name Role Phone KENNEDI ANN Unavailable Allergies No Known Allergies Problems No Known Problems Medications No Known Medications Results No Known Results Summary Purpose [employer] Submission
--- OUTSIDE RECORDS SUMMARY | 2017-06-13 13:25 | XMS REPORT ---
Author KENNEDI Garduno [facility] [employer] Address Unknown Phone Unavailable Care Team Providers Care Fast Food Supervisor Name Role Phone KENNEDI ANN Unavailable Allergies No Known Allergies Problems Problem Type Condition Code Onset Dates Condition Status Assessment Encounter for immunization Z23 Active Assessment Normal , first Z34.00 Active Medications No Known Medications Procedures Procedure Coding System Code Date Office Visit, Est Pt., Level 3 CPT-4 77478 May 05, 2016 TDAP (BOOSTRIX) CPT-4 85885 May 05, 2016 URINE-NO MICRO CPT-4 34405 May 05, 2016 SINGLE IMMUNIZATION ADMIN CPT-4 86041 May 05, 2016 Vital Signs Date/Time: May 05, 2016 Blood Pressure Systolic 118 mmHg Weight 150.1 lbs Height 63.25 in Blood Pressure Diastolic 76 mmHg Results No Known Results Immunizations Vaccine Administration Date TDAP (BOOSTRIX) May 05, 2016 Summary Purpose [employer]Works Submission
--- OUTSIDE RECORDS SUMMARY | 2017-06-13 13:25 | XMS REPORT ---
Author YOVANNY Strauss [facility] [employer] Address Unknown Phone Unavailable Care Team Providers Care Tattoo Technician Name Role Phone YOVANNY MONTES CP Unavailable Allergies, Adverse Reactions, Alerts Substance Reaction Event Type Dexamethasone flushing Drug Allergy Problems Problem Type Condition Code Onset Dates Condition Status Problem Dysuria R30.0 Active Assessment Post depression F53 Active Problem Post depression F53 Active Medications Medication Code System Code Instructions Start Date End Date Status Dosage Paxil [facility] [address]-71 20 MG Orally Once a day Aug 12, 2016 1 tablet in the morning Diflucan [facility] [address]-68 150 MG Orally one time Aug 20, 2016 1 tablet today and one tablet in 4 days Tylenol [facility] [address]-88 325 MG Orally every 6 hrs 1 tablet as needed Classic [facility] [address]-69 28-0.8 MG Orally Once a day Dec 09, 2015 as directed Abilify [facility] [address]-37 2 MG Orally Once a day Aug 23, 2016 1 tablet Procedures Procedure Coding System Code Date Office Visit, Est Pt., Level 3 CPT-4 82936 Aug 23, 2016 Vital Signs Date/Time: Aug 23, 2016 Cardiac Monitoring Heart Rate 66 bpm Weight 140 lbs Height 63.25 in BMI 24.60 Index Blood Pressure Diastolic 80 mmHg Blood Pressure Systolic 110 mmHg Results No Known Results Summary Purpose [employer]ClinicalWorks Submission
--- OUTSIDE RECORDS SUMMARY | 2017-06-13 13:25 | XMS REPORT ---
Author Author KRISTY PRITCHARD [employer] Address Unknown Phone Unavailable Care Team Providers Care Medical Interpreter Name Role Phone KRISTY PRITCHARD CP Unavailable Allergies, Adverse Reactions, Alerts Substance Reaction Event Type Decadron Info Not Available Non Drug Allergy Problems Problem Type Condition Code Onset Dates Condition Status Assessment Major depressive disorder, single episode, unspecified F32.9 Active Assessment Other mental disorders complicating the puerperium O99.345 Active Problem Dysuria R30.0 Active Assessment Dysuria R30.0 Active Medications Medication Code System Code Instructions Start Date End Date Status Dosage Diflucan [facility] [address]-17 150 MG Orally one time Aug 20, 2016 1 tablet today and one tablet in 4 days Classic [facility] [address]-07 28-0.8 MG Orally Once a day Dec 09, 2015 as directed Paxil [facility] [address]-03 20 MG Orally Once a day Aug 12, 2016 1 tablet in the morning Cipro [facility] [address]-74 500 MG Orally Twice a day Aug 20, 2016 Aug 23, 2016 1 tablet Tylenol [facility] [address]-84 325 MG Orally every 6 hrs 1 tablet as needed Procedures Procedure Coding System Code Date Office Visit, Est Pt., Level 3 CPT-4 78615 Aug 20, 2016 URINALYSIS, AUTO, W/O SCOPE CPT-4 59062 Aug 20, 2016 Vital Signs Date/Time: Aug 20, 2016 Cardiac Monitoring Heart Rate 72 bpm Weight 143.7 lbs Height 63.25 in BMI 25.25 Index Blood Pressure Diastolic 62 mmHg Blood Pressure Systolic 108 mmHg Results Name Result Date Reference Range Unit Abnormality Flag UA LONG DIP (IN HOUSE) ----NARGIS trace [id number] ----NIT neg [id number] ----SG 1.015 [id number] ----KET neg [id number] ----GEORGI neg [id number] ----GLU neg [id number] ----Odor no [id number] ----pH 7.0 20160820 ----BLO 2+ [id number] ----URO 0.2 [id number] ----Protein neg [id number] ----Lot # [id number] ----Exp date [id number] ----Clarity yellow [id number] ----Color yellow [id number] Summary Purpose [employer]ClinicalWorks Submission
--- OUTSIDE RECORDS SUMMARY | 2017-06-13 13:25 | XMS REPORT ---
Author Author BLAIR KAUR Organization [employer] Address Unknown Phone Unavailable Care Team Providers Care Education Program Associate Name Role Phone BLAIR KAUR Unavailable Allergies No Known Allergies Problems No Known Problems Medications No Known Medications Results No Known Results Summary Purpose [employer] Submission
--- OUTSIDE RECORDS SUMMARY | 2017-06-13 13:26 | XMS REPORT ---
Author Author SHIVAM JOHNSON [facility] [employer] Address Unknown Phone Unavailable Care Team Providers Care Recreational Assistant Name Role Phone SHIVAM JOHNSON CP Unavailable Allergies No Known Allergies Problems Problem Type Condition Code Onset Dates Condition Status Assessment depression F53 Active Medications No Known Medications Procedures Procedure Coding System Code Date Psychotherapy, patient &/family, 30 minutes, new patient CPT-4 12159 Jul Results No Known Results Summary Purpose [employer]Works Submission
--- OUTSIDE RECORDS SUMMARY | 2017-06-13 13:26 | XMS REPORT ---
Author KENNEDI Garduno Organization [employer] Address Unknown Phone Unavailable Care Team Providers Care Reliability Manager Name Role Phone KENNEDI ANN Unavailable Allergies No Known Allergies Problems Problem Type Condition Code Onset Dates Condition Status Assessment care, first in third trimester Z34.03 Active Medications Medication Code System Code Instructions Start Date End Date Status Dosage Colace [facility] [address]-05 100 MG Orally Once a day March 10, 2016 May 09, 2016 1 capsule as needed Zofran [facility] [address]-36 4 MG Orally every 4-6 hours as needed March 10, 2016 1 tablet Tylenol [facility] [address]-90 325 MG Orally every 6 hrs 1 tablet as needed Classic [facility] [address]-05 28-0.8 MG Orally Dec 09, 2015 as directed Ferrous Sulfate [facility] [address]-37 324 (65 Fe) MG Orally twice a day March 1 tablet Procedures Procedure Coding System Code Date Office Visit, Est Pt., Level 3 CPT-4 20794 April 21, 2016 URINE-NO MICRO CPT-4 49158 April 21, 2016 Vital Signs Date/Time: April 21, 2016 Cardiac Monitoring Heart Rate 88 bpm Weight 148.7 lbs Height 63.25 in Blood Pressure Diastolic 68 mmHg Blood Pressure Systolic 118 mmHg Results No Known Results Summary Purpose [employer]ClinicalWorks Submission
--- OUTSIDE RECORDS SUMMARY | 2017-06-13 13:26 | XMS REPORT ---
Author Author KENNEDI ANN [facility] Address [address] [place] [address] Care Team Providers Care Promotions Manager Name Role Phone KENNEDI ANN Unavailable PROBLEMS Unknown Problems ALLERGIES Unknown Allergies SOCIAL HISTORY No smoking Hx information available PLAN OF CARE VITAL SIGNS MEDICATIONS Unknown Medications RESULTS No Results PROCEDURES No Known procedures IMMUNIZATIONS No Known Immunizations
--- OUTSIDE RECORDS SUMMARY | 2017-06-13 13:26 | XMS REPORT ---
Author Author BLAIR KAUR Organization [employer] Address Unknown Phone Unavailable Care Team Providers Care Flat Knitter Helper Name Role Phone BLAIR KAUR CP Unavailable Allergies, Adverse Reactions, Alerts Substance Reaction Event Type Decadron Info Not Available Non Drug Allergy Problems Problem Type Condition Code Onset Dates Condition Status Assessment Headache, unspecified headache type R51 Active Assessment Post depression F53 Active Medications Medication Code System Code Instructions Start Date End Date Status Dosage Paxil [facility] [address]-73 20 MG Orally Once a day Aug 12, 2016 1 tablet in the morning Tylenol [facility] [address]-99 325 MG Orally every 6 hrs 1 tablet as needed Classic [facility] [address]-76 28-0.8 MG Orally Once a day Dec 09, 2015 as directed Procedures Procedure Coding System Code Date Office Visit, Est Pt., Level 3 CPT-4 80466 Aug 12, 2016 Vital Signs Date/Time: Aug 12, 2016 Cardiac Monitoring Heart Rate 68 bpm Weight 146.5 lbs Height 63.25 in BMI 25.74 Index Blood Pressure Diastolic 64 mmHg Blood Pressure Systolic 112 mmHg Results No Known Results Summary Purpose [employer]ClinicalWorks Submission
--- OUTSIDE RECORDS SUMMARY | 2017-06-13 13:26 | XMS REPORT ---
Author Author KENNEDI ANN Organization [employer] Address Unknown Phone Unavailable Care Team Providers Care Manager Supply Chain Planning Name Role Phone KENNEDI ANN Unavailable Allergies No Known Allergies Problems Problem Type Condition Code Onset Dates Condition Status Assessment care in third trimester Z34.93 Active Medications Medication Code System Code Instructions Start Date End Date Status Dosage Ferrous Sulfate [facility] [address]-60 324 (65 Fe) MG Orally twice a day March [address] [facility] [address]-40 28-0.8 MG Orally Dec 09, 2015 as directed Zofran [facility] [address]-71 4 MG Orally every 4-6 hours as needed March 10, 2016 1 tablet Procedures Procedure Coding System Code Date Office Visit, Est Pt., Level 3 CPT-4 33791 Jun 02, 2016 URINE-NO MICRO CPT-4 77920 Jun 02, 2016 Vital Signs Date/Time: Jun 02, 2016 Blood Pressure Systolic 118 mmHg Weight 158.0 lbs Height 63.25 in BMI 27.768 Index Blood Pressure Diastolic 70 mmHg Results No Known Results Summary Purpose [employer]ClinicalWorks Submission
--- OUTSIDE RECORDS SUMMARY | 2017-06-13 13:27 | XMS REPORT ---
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
--- OUTSIDE RECORDS SUMMARY | 2017-06-13 13:27 | XMS REPORT ---
Author Author SHIVAM JOHNSON [facility] eClinical[employer] Address Unknown Phone Unavailable Care Team Providers Care Director Of Nurses Registry Name Role Phone SHIVAM JOHNSON CP Unavailable Allergies, Adverse Reactions, Alerts Substance Reaction Event Type Decadron Info Not Available Non Drug Allergy Problems Problem Type Condition Code Onset Dates Condition Status Problem Post depression F53 Active Problem Major depressive disorder, single episode, unspecified F32.9 Active Problem Generalized anxiety disorder F41.1 Active Assessment Generalized anxiety disorder F41.1 Active Assessment Other mental disorders complicating the puerperium O99.345 Active Problem Dysuria R30.0 Active Assessment depression F53 Active Medications No Known Medications Procedures Procedure Coding System Code Date Psych diagnostic evaluation, established patient CPT-4 04084 Aug 20, 2016 Results No Known Results Summary Purpose eClinicalWorks Submission
--- OUTSIDE RECORDS SUMMARY | 2017-06-13 13:27 | XMS REPORT ---
Author Author KENNEDI ANN Organization [employer] Address Unknown Phone Unavailable Care Team Providers Care Payroll Representative Name Role Phone KENNEDI ANN Unavailable Allergies No Known Allergies Problems No Known Problems Medications No Known Medications Results No Known Results Summary Purpose [employer]ClinicalWorks Submission
== END 2017-06-13 12:18 | disposition home or self-care (01) ==
LOC: EDUNIT# 09:55 → ER 09:58
DX: G43.909 Migraine, unspecified, not intractable, without status migrainosus (principal); Z87.19 Personal history of other diseases of the digestive system; Z87.442 Personal history of urinary calculi; Z90.89 Acquired absence of other organs; Z87.59 Personal history of other complications of pregnancy, childbirth and the puerperium; Z87.891 Personal history of nicotine dependence; Z86.39 Personal history of other endocrine, nutritional and metabolic disease
CPT/HCPCS: 96361; 96374; 96375

== ENCOUNTER 2017-06-15 18:12 | Emergency (ER) | payer MEDICAID ==
[~2017-06-15] VITALS: Ht 160 cm; Wt 52.2 kg
[2017-06-15] MEDS ORDERED: KETOROLAC 30 MG/ML VIAL IVP STA (19:27)
[2017-06-15] MEDS ORDERED: LACTATED RINGERS 1,000 ML IV ONE (19:27)
[2017-06-15 19:48] LABS: BASOPHILS # (AUTO) 0.1 10^3/uL (0.0-0.1); BASOPHILS % (AUTO) 1 % (0-10); EOSINOPHILS # (AUTO) 0.2 10^3/uL (0.0-0.3); EOSINOPHILS % (AUTO) 3 % (0-10); LYMPHOCYTES # (AUTO) 3.4 X 10^3 (1.0-4.0); LYMPHOCYTES % (AUTO) 44 % (12-44); MEAN CORPUSCULAR HEMOGLOBIN 31 PG (25-34); MEAN CORPUSCULAR HGB CONC 33 G/DL (32-36); MEAN CORPUSCULAR VOLUME 93 FL (80-99); MEAN PLATELET VOLUME 11.3 FL (7.4-10.4); MONOCYTES # (AUTO) 0.4 X 10^3 (0.0-1.0); MONOCYTES % (AUTO) 6 % (0-12); NEUTROPHILS # (AUTO) 3.5 X 10^3 (1.8-7.8); NEUTROPHILS % (AUTO) 46 % (42-75); PLATELET COUNT 257 10^3/uL (130-400); RED BLOOD COUNT 4.75 10^6/uL (4.35-5.85); RED CELL DISTRIBUTION WIDTH 13.1 % (10.0-14.5); WHITE BLOOD COUNT 7.7 10^3/uL (4.3-11.0)
[2017-06-15 20:08] LABS: ALANINE AMINOTRANSFERASE 14 U/L (0-55); ANION GAP 12 MMOL/L (5-14); ASPARTATE AMINO TRANSFERASE 16 U/L (5-34); BILIRUBIN,TOTAL 0.6 MG/DL (0.1-1.0); BLOOD UREA NITROGEN 10 MG/DL (7-18); BUN/CREATININE RATIO 14; CALCIUM 10.3 MG/DL (8.5-10.1); CARBON DIOXIDE 28 MMOL/L (21-32); CHLORIDE 103 MMOL/L (98-107); CREATININE SERUM 0.72 MG/DL (0.60-1.30); GFR ESTIMATED > 60; GLUCOSE 87 MG/DL (70-105); POTASSIUM 3.9 MMOL/L (3.6-5.0); SODIUM 143 MMOL/L (135-145); TOTAL PROTEIN 7.6 GM/DL (6.4-8.2)
--- NOTE | 2017-06-15 20:12 | Diagnostic Imaging Report ---
PROCEDURE: CT head without contrast. INDICATION: Headache for one week CT HEAD: Multiple contiguous axial CT images of the head were obtained. FINDINGS: Ventricles and sulci are within normal limits for size. There is no intracranial hemorrhage identified. There is no abnormal mass effect or shift of midline structures. IMPRESSION: Unremarkable CT of the head. Dictated by: Dictated on workstation # [id number]
[2017-06-15] MEDS ORDERED: diphenhydrAMINE 50 MG/ML INJ (BENADRYL) IVP ONE (20:30)
[2017-06-15] MEDS ORDERED: ORPHENADRINE 60 MG/2 ML (NORFLEX) AMP IV ONE (20:30)
[2017-06-15] MEDS ORDERED: ONDANSETRON 4 MG/2 ML (SDV) Z0FRAN ONE (21:17)
[2017-06-15] MEDS ORDERED: ONDA4TAB8 PO (21:27)
[2017-06-15] MEDS ORDERED: BUTA1CAP45 PO (21:27)
--- NOTE | 2017-06-15 21:27 | ED Headache ---
General Chief Complaint: Head/Cervical Problems Stated Complaint: HEADACHE,FALLING ASLEEP WHILE STANDING Nursing Triage Note: PT TO ED 7 FOR C/O HEADACHE ET INCREASED SLEEPINESS TODAY. PT REPORTS SHE WAS SEEN IN THIS ED X2 DAYS AGO FOR PERRY BUT DENIES IMPROVEMENT. PT DOES REPORT SHE TOOK PERCOCET YESTERDAY BUT DENIES TAKING ANY TODAY Nursing Sepsis Screen: No Definite Risk Allergies and Home Medications Allergies Coded Allergies: dexamethasone (Unverified Adverse Reaction, Intermediate, 09/04/13) Past Vjnkllx-Sqnaae-Daxppm Hx Patient Social History Alcohol Use: Denies Use Number of Drinks Today: Alcohol Beverage of Choice: Wine Recreational Drug Use: No Drug of Choice: methamphetamines Smoking Status: Current Everyday Smoker Type Used: Cigarettes Former Smoker, Quit: Oct 17, 2015 Recent Foreign Travel: No Contact w/Someone Who Travel: No Recent Infectious Disease Expo: No Recent Hopitalizations: Yes ( et hematoma removal) Immunizations Up To Date Tetanus Booster (TDap): Less than 5yrs Date of Influenza Vaccine: Jun 17, 2016 Seasonal Allergies Seasonal Allergies: No Surgeries History of Surgeries: Yes (KIDNEY STONE REMOVAL; X 1) Surgeries: Section, Gallbladder, Tonsillectomy Respiratory History of Respiratory Disorde: No Cardiovascular History of Cardiac Disorders: No Neurological History of Neurological Disord: Yes Neurological Disorders: Headaches /Migraines Reproductive System Hx Reproductive Disorders: No Sexually Transmitted Disease: No HIV/AIDS: No Female Reproductive Disorders: Menstrual Problems Genitourinary History of Genitourinary Disor: Yes Genitourinary Disorders: Kidney Stones Gastrointestinal History of Gastrointestinal Di: Yes Gastrointestinal Disorders: Gall Bladder Disease Musculoskeletal History of Musculoskeletal Dis: No Endocrine History of Endocrine Disorders: No HEENT HEENT Disorders: Tonsilitis Cancer History of Cancer: No Psychosocial History of Psychiatric Problem: No Integumentary History of Skin or Integumenta: No Blood Transfusions History of Blood Disorders: No Family Medical History Significant Family History: No Pertinent Family Hx Family Medial History: Patient reports no known family medical history. Physical Exam Vital Signs Vital Sign - Last 12Hours 06/15/17 19:11 Temp 97.5 Pulse 67 Resp 18 B/P (MAP) 139/86 Pulse Ox 100 O2 Delivery Room Air Capillary Refill : Less Than 3 Seconds Progress/Results/Core Measures Results/Orders Lab Results Laboratory Tests Test 06/15/17 19:40 Range/Units White Blood Count 7.7 4.3-11.0 10^3/uL Red Blood Count 4.75 4.35-5.85 10^6/uL Hemoglobin 14.6 11.5-16.0 G/DL Hematocrit 44 35-52 % Mean Corpuscular Volume 93 80-99 FL Mean Corpuscular Hemoglobin 31 25-34 PG Mean Corpuscular Hemoglobin Concent 33 32-36 G/DL Red Cell Distribution Width 13.1 10.0-14.5 % Platelet Count 257 130-400 10^3/uL Mean Platelet Volume 11.3 H 7.4-10.4 FL Neutrophils (%) (Auto) 46 42-75 % Lymphocytes (%) (Auto) 44 12-44 % Monocytes (%) (Auto) 6 0-12 % Eosinophils (%) (Auto) 3 0-10 % Basophils (%) (Auto) 1 0-10 % Neutrophils # (Auto) 3.5 1.8-7.8 X 10^3 Lymphocytes # (Auto) 3.4 1.0-4.0 X 10^3 Monocytes # (Auto) 0.4 0.0-1.0 X 10^3 Eosinophils # (Auto) 0.2 0.0-0.3 10^3/uL Basophils # (Auto) 0.1 0.0-0.1 10^3/uL Sodium Level 143 135-145 MMOL/L Potassium Level 3.9 3.6-5.0 MMOL/L Chloride Level 103 98-107 MMOL/L Carbon Dioxide Level 28 21-32 MMOL/L Anion Gap 12 5-14 MMOL/L Blood Urea Nitrogen 10 7-18 MG/DL Creatinine 0.72 0.60-1.30 MG/DL Estimat Glomerular Filtration Rate > 60 BUN/Creatinine Ratio 14 Glucose Level 87 70-105 MG/DL Calcium Level 10.3 H 8.5-10.1 MG/DL Total Bilirubin 0.6 0.1-1.0 MG/DL Aspartate Amino Transf (AST/SGOT) 16 5-34 U/L Alanine Aminotransferase (ALT/SGPT) 14 0-55 U/L Alkaline Phosphatase 69 40-136 U/L Total Protein 7.6 6.4-8.2 GM/DL Albumin 5.0 H 3.2-4.5 GM/DL TSH [place] Testing 1.29 0.35-4.94 UIU/ML Serum Test, Qualitative NEGATIVE NEGATIVE Monoscreen NEGATIVE NEGATIVE My Orders Orders - BISI MÁRQUEZ DO Saline Lock/Iv-Start (06/15/17 19:27) Cbc With Automated Diff (06/15/17 19:27) Comprehensive Metabolic Panel (06/15/17 19:27) Hcg,Qualitative Serum (06/15/17 19:27) Monotest (06/15/17 19:27) Thyroid Analyzer (06/15/17 19:27) Ct Head Wo (06/15/17 19:27) Saline Lock/Iv-Start (06/15/17 19:27) Lactated Ringers (Lr 1000 Ml Iv Solution (06/15/17 19:27) Ketorolac Injection (Toradol Injection) (06/15/17 19:27) Orphenadrine Injection (Norflex Injectio (06/15/17 20:30) Diphenhydramine Injection (Benadryl Inje (06/15/17 20:30) Ondansetron Injection (Zofran Injectio (06/15/17 21:30) Ondansetron Injection (Zofran Injectio (06/15/17 21:30) Fentanyl Injection (Sublimaze Injection (06/15/17 21:30) Medications Given in ED Current Medications Medications Dose Ordered Sig/Randy Route Start Time Stop Time Status Last Admin Dose Admin Lactated Ringer's 1,000 ml @ 0 mls/hr Q0M ONCE IV 06/15/17 19:27 06/15/17 19:28 DC 06/15/17 19:42 1,000 MLS/HR Orphenadrine Citrate 60 mg ONCE ONCE IV 06/15/17 20:30 06/15/17 20:31 DC 06/15/17 21:05 60 MG Vital Signs/I&O Vital Sign - Last 12Hours 06/15/17 19:11 Temp 97.5 Pulse 67 Resp 18 B/P (MAP) 139/86 Pulse Ox 100 O2 Delivery Room Air Blood Pressure Mean: 103 Departure Impression Impression: Primary Impression: Headache Disposition: 01 HOME, SELF-CARE Condition: Stable Departure-Patient Inst. Referrals: YOVANNY MONTES DO (PCP) Primary Care Physician SOHAIL BACK (Family) Primary Care Physician Patient Instructions: Headache, Adult (DC) Add. Discharge Instructions: LOTS OF CLEAR LIQUIDS--WATER, BROTH, JELLO, GATORADE FOLLOW UP WITH YOUR DR TOMORROW IF NO BETTER All discharge instructions reviewed with patient and/or family. Voiced understanding. Scripts Ondansetron (Zofran Odt) 4 Mg Tab.rapdis 4 MG PO Q4H for Nausea/Vomiting, #10 TAB Prov: BISI MÁRQUEZ DO 06/15/17 Butalb/Acetaminophen/Caffeine (Esgic Capsule) 1 Each Capsule 1-2 EACH PO Q6H Y for HEADACHE, #10 CAP Prov: BISI MÁRQUEZ DO 06/15/17 BISI MÁRQUEZ DO Jun 15, 2017 21:27
[2017-06-15] MEDS ORDERED: ONDANSETRON 4 MG/2 ML (SDV) Z0FRAN IVP ONE ×2 (21:30)
[2017-06-15] MEDS ORDERED: fentaNYL INJECTION 100 MCG/2 ML AMP IVP ONE (21:30)
[2017-06-15 22:13] VITALS: BP 130/84
== END 2017-06-15 22:13 | disposition home or self-care (01) ==
LOC: EDUNIT# 18:12 → ER 18:13
DX: R51 Headache (principal); F17.210 Nicotine dependence, cigarettes, uncomplicated; F12.90 Cannabis use, unspecified, uncomplicated; Z87.442 Personal history of urinary calculi; Z87.09 Personal history of other diseases of the respiratory system; Z87.59 Personal history of other complications of pregnancy, childbirth and the puerperium; Z90.89 Acquired absence of other organs
CPT/HCPCS: 36415; 70450; 80053; 84443; 84703; 85025; 86308; 96361; 96374; 96375

== ENCOUNTER 2018-01-14 16:59 | Emergency (ER) | payer MEDICAID ==
[~2018-01-14] VITALS: Ht 160 cm; Wt 49.9 kg
[~2018-01-14 16:59] MED LIST changes: +BUTA1CAP45 PO; +ONDA4TAB8 PO
[2018-01-14] MEDS ORDERED: NS IV 1000 ML 1,000 ML IV ONE (18:03)
[2018-01-14] MEDS ORDERED: NS 100 ML (IVPB) BAG IV ONE (18:15)
[2018-01-14] MEDS ORDERED: IOHEXOL 350 MG/ML 100 ML (OMNIPAQUE 350) VIAL IV ONE (18:15)
[2018-01-14 18:20] LABS: BASOPHILS % (AUTO) 0 % (0-10); EOSINOPHILS # (AUTO) 0.3 10^3/uL (0.0-0.3); EOSINOPHILS % (AUTO) 2 % (0-10); HEMATOCRIT 39 % (35-52); HEMOGLOBIN 13.1 G/DL (11.5-16.0); LYMPHOCYTES % (AUTO) 15 % (12-44); MEAN CORPUSCULAR HEMOGLOBIN 32 PG (25-34); MEAN CORPUSCULAR HGB CONC 34 G/DL (32-36); MEAN CORPUSCULAR VOLUME 94 FL (80-99); MEAN PLATELET VOLUME 10.8 FL (7.4-10.4); MONOCYTES # (AUTO) 0.8 X 10^3 (0.0-1.0); MONOCYTES % (AUTO) 6 % (0-12); NEUTROPHILS # (AUTO) 10.1 X 10^3 (1.8-7.8); NEUTROPHILS % (AUTO) 77 % (42-75); PLATELET COUNT 214 10^3/uL (130-400); RED BLOOD COUNT 4.11 10^6/uL (4.35-5.85); WHITE BLOOD COUNT 13.1 10^3/uL (4.3-11.0)
[2018-01-14] MEDS ORDERED: KETOROLAC 30 MG/ML VIAL IVP STA (18:27)
[2018-01-14 18:37] LABS: ALANINE AMINOTRANSFERASE 15 U/L (0-55); ALKALINE PHOSPHATASE 95 U/L (40-136); BILIRUBIN,TOTAL 0.7 MG/DL (0.1-1.0); BUN/CREATININE RATIO 18; CARBON DIOXIDE 24 MMOL/L (21-32); CHLORIDE 105 MMOL/L (98-107); CREATININE SERUM 0.66 MG/DL (0.60-1.30); GFR ESTIMATED > 60; GLUCOSE 138 MG/DL (70-105); SODIUM 139 MMOL/L (135-145); TOTAL PROTEIN 5.8 GM/DL (6.4-8.2)
[2018-01-14 19:36] LABS: BILIRUBIN,URINE NEGATIVE (NEGATIVE); CLARITY,URINE VERY CLOUDY; COLOR,URINE RED; GLUCOSE, URINE (UA) NEGATIVE (NEGATIVE); KETONES,URINE NEGATIVE (NEGATIVE); LEUKOCYTE ESTERASE ,URINE 3+ (NEGATIVE); NITRITE,URINE NEGATIVE (NEGATIVE); PH,URINE 7 (5-9); PROTEIN,URINE 3+ (NEGATIVE); UROBILINOGEN,URINE NORMAL (NORMAL)
--- NOTE | 2018-01-14 19:42 | Diagnostic Imaging Report ---
PROCEDURE: CT abdomen and pelvis with contrast, rule out appendicitis. TECHNIQUE: Multiple contiguous axial images were obtained through the abdomen and pelvis after the administration of intravenous contrast. INDICATION: Abdominal pain. COMPARISON: CT abdomen and pelvis without contrast 07/23/2016. FINDINGS: Lung bases are clear. Cholecystectomy. The appendix is negative. The liver, pancreas, spleen, adrenals, collecting systems and partially opacified bladder are negative. IUD. No free intraperitoneal air or fluid. No lymphadenopathy. No evidence of bowel obstruction or inflammation. IMPRESSION: No acute CT findings in the abdomen or pelvis. Dictated by: Dictated on workstation # [id number]
[2018-01-14 19:43] LABS: BACTERIA,URINE MODERATE /HPF; RBC,URINE 50-100 /HPF; WBC,URINE TNTC /HPF
[2018-01-14 19:44] LABS: SQUAMOUS EPITHELIAL CELL,UR >50 /HPF
[2018-01-14] MEDS ORDERED: cefTRIAXone INJECTION 1,000 MG in NS (IVPB) 100 ML IV ONE (20:00)
--- NOTE | 2018-01-14 20:00 | ED GU-Female ---
General Chief Complaint: -Female Stated Complaint: SEVERE ABD PAIN Nursing Triage Note: PT TO ED 10 PT STATES HAS ABD PAIN AND HAD GREEN DRAINAGE FROM VAGINA TODAY, PT STATES HAS BEEN HAVING PERIOD SINCE 12/21 WHEN HAD MERINA PUT IN. PT STATES HAD GREEN DRAINAGE TODAY. PT RATES PAIN 04/25. DENIES FEVER BUT HAS SOME NAUSEA Nursing Sepsis Screen: No Definite Risk History of Present Illness Date Seen by Provider: Jan 14, 2018 Time Seen by Provider: 17:30 Initial Comments 22-year-old female reports for lower abdominal pain and continued vaginal bleeding after placement of Mirena one month ago. She reports being a monogamous relationship for 10 months. She has noted green discharge over the last several days. Vaginal discharge over the last several days. No histories of STDs. Denies pain with intercourse. Timing/Duration: intermittent Severity/Quality: moderate (lower abdominal pain) Location: suprapubic Radiation: generalized flank Associated Symptoms: abdominal pain, dysuria, No lower back pain, No nausea/ vomiting, No nocturia, No polyuria, No swelling, No urinary frequency Allergies and Home Medications Allergies Coded Allergies: dexamethasone (Unverified Adverse Reaction, Intermediate, 09/04/13) Home Medications Butalb/Acetaminophen/Caffeine 1 Each Capsule, 1-2 EACH PO Q6H PRN for HEADACHE Prescribed by: BISI MÁRQUEZ on 06/15/172126 Metronidazole 500 Mg Tablet, 500 MG PO BID Prescribed by: MELVINA TEAGUE on 01/14/182057 Ondansetron 4 Mg Tab.rapdis, 4 MG PO Q4H Prescribed by: BISI MÁRQUEZ on 06/15/172126 Sulfamethoxazole/Trimethoprim 1 Each Tablet, 1 EACH PO BID Prescribed by: MELVINA TEAGUE on 01/14/182057 Patient Home Medication List Home Medication List Reviewed: Yes Constitutional: no symptoms reported, see HPI Genitourinary: see HPI, discharge, pain All Other Systemes Reviewed Negative Unless Noted: Yes Past Yxuoliw-Hqnzlr-Fymygu Hx Patient Social History Alcohol Use: Occasionally Uses Number of Drinks Today: Alcohol Beverage of Choice: Wine Recreational Drug Use: Yes (POT) Drug of Choice: methamphetamines Smoking Status: Current Everyday Smoker Type Used: Cigarettes Recent Foreign Travel: No Contact w/Someone Who Travel: No Recent Infectious Disease Expo: No Recent Hopitalizations: Yes ( et hematoma removal) Physical Abuse: No Sexual Abuse: No Immunizations Up To Date Tetanus Booster (TDap): Less than 5yrs Date of Influenza Vaccine: Jun 17, 2016 Seasonal Allergies Seasonal Allergies: No Surgeries History of Surgeries: Yes (KIDNEY STONE REMOVAL/LITHORIPSY; X 1) Surgeries: Section, Gallbladder, Renal, Tonsillectomy Respiratory History of Respiratory Disorde: No Cardiovascular History of Cardiac Disorders: No Neurological History of Neurological Disord: Yes Neurological Disorders: Headaches /Migraines Reproductive System : No (MERINA) Hx Reproductive Disorders: No Sexually Transmitted Disease: No HIV/AIDS: No Female Reproductive Disorders: Menstrual Problems Genitourinary History of Genitourinary Disor: Yes Genitourinary Disorders: Kidney Stones Gastrointestinal History of Gastrointestinal Di: Yes Gastrointestinal Disorders: Gall Bladder Disease Musculoskeletal History of Musculoskeletal Dis: No Endocrine History of Endocrine Disorders: No HEENT HEENT Disorders: Tonsilitis Cancer History of Cancer: No Psychosocial History of Psychiatric Problem: No Suicide Risk Score: 0 Integumentary History of Skin or Integumenta: No Blood Transfusions History of Blood Disorders: No Reviewed Nursing Assessment Reviewed/Agree w Nursing PMH: Yes Family Medical History Significant Family History: No Pertinent Family Hx Family Medial History: Patient reports no known family medical history. Physical Exam Vital Signs Vital Signs - First Documented 01/14/18 17:05 Temp 97.9 Pulse 111 Resp 18 B/P (MAP) 129/95 (106) Pulse Ox 100 Capillary Refill : Less Than 3 Seconds General Appearance: WD/WN, no apparent distress Neck: non-tender, full range of motion, supple Cardiovascular: normal peripheral pulses, regular rate, rhythm Respiratory: chest non-tender, lungs clear, normal breath sounds Gastrointestinal: normal bowel sounds, soft, No guarding, rebound, tenderness ( generalized to the lower abdomin) Pelvic: normal external exam, normal adnexa, no cerv. motion tender, discharge (trace clear to pink 10), No lesions, No mass, No tender w/ cervical motion, No vaginal bleeding Neurologic/Psychiatric: no motor/sensory deficits, alert, normal mood/affect, oriented x 3 Skin: normal color, warm/dry Progress/Results/Core Measures Suspected Sepsis Recent Fever Within 48 Hours: No Infection Criteria Present: None New/Unexplained Altered Menta: No Sepsis Screen: No Definite Risk Sepsis Diagnosis: SIRS Temperature:97.9 Pulse: 111 Respiratory Rate: 18 Laboratory Tests 01/14/18 18:10: White Blood Count 13.1H Blood Pressure 129 /95 Mean: 106 Laboratory Tests 01/14/18 18:10: Creatinine 0.66, Platelet Count 214, Total Bilirubin 0.7 Results/Orders Lab Results Laboratory Tests Test 01/14/18 18:10 01/14/18 19:25 01/14/18 20:20 Range/Units White Blood Count 13.1 H 4.3-11.0 10^3/uL Red Blood Count 4.11 L 4.35-5.85 10^6/uL Hemoglobin 13.1 11.5-16.0 G/DL Hematocrit 39 35-52 % Mean Corpuscular Volume 94 80-99 FL Mean Corpuscular Hemoglobin 32 25-34 PG Mean Corpuscular Hemoglobin Concent 34 32-36 G/DL Red Cell Distribution Width 12.0 10.0-14.5 % Platelet Count 214 130-400 10^3/uL Mean Platelet Volume 10.8 H 7.4-10.4 FL Neutrophils (%) (Auto) 77 H 42-75 % Lymphocytes (%) (Auto) 15 12-44 % Monocytes (%) (Auto) 6 0-12 % Eosinophils (%) (Auto) 2 0-10 % Basophils (%) (Auto) 0 0-10 % Neutrophils # (Auto) 10.1 H 1.8-7.8 X 10^3 Lymphocytes # (Auto) 2.0 1.0-4.0 X 10^3 Monocytes # (Auto) 0.8 0.0-1.0 X 10^3 Eosinophils # (Auto) 0.3 0.0-0.3 10^3/uL Basophils # (Auto) 0.0 0.0-0.1 10^3/uL Sodium Level 139 135-145 MMOL/L Potassium Level 3.0 L 3.6-5.0 MMOL/L Chloride Level 105 98-107 MMOL/L Carbon Dioxide Level 24 21-32 MMOL/L Anion Gap 10 5-14 MMOL/L Blood Urea Nitrogen 12 7-18 MG/DL Creatinine 0.66 0.60-1.30 MG/DL Estimat Glomerular Filtration Rate > 60 BUN/Creatinine Ratio 18 Glucose Level 138 H 70-105 MG/DL Calcium Level 9.0 8.5-10.1 MG/DL Total Bilirubin 0.7 0.1-1.0 MG/DL Aspartate Amino Transf (AST/SGOT) 14 5-34 U/L Alanine Aminotransferase (ALT/SGPT) 15 0-55 U/L Alkaline Phosphatase 95 40-136 U/L Total Protein 5.8 L 6.4-8.2 GM/DL Albumin 4.0 3.2-4.5 GM/DL Serum Test, Qualitative NEGATIVE NEGATIVE Urine Color RED H Urine Clarity VERY CLOUDY H Urine pH 7 5-9 Urine Specific Bruni 1.005 L 1.016-1.022 Urine Protein 3+ H NEGATIVE Urine Glucose (UA) NEGATIVE NEGATIVE Urine Ketones NEGATIVE NEGATIVE Urine Nitrite NEGATIVE NEGATIVE Urine Bilirubin NEGATIVE NEGATIVE Urine Urobilinogen NORMAL NORMAL MG/DL Urine Leukocyte Esterase 3+ H NEGATIVE Urine RBC (Auto) 5+ H NEGATIVE Urine RBC 50-100 H /HPF Urine WBC TNTC H /HPF Urine Squamous Epithelial Cells >50 H /HPF Urine Crystals NONE /LPF Urine Bacteria MODERATE H /HPF Urine Casts NONE /LPF Urine Mucus NEGATIVE /LPF Urine Culture Indicated YES Urine Opiates Screen POSITIVE H NEGATIVE Urine Oxycodone Screen NEGATIVE NEGATIVE Urine Methadone Screen NEGATIVE NEGATIVE Urine Propoxyphene Screen NEGATIVE NEGATIVE Urine Barbiturates Screen NEGATIVE NEGATIVE Ur Tricyclic Antidepressants Screen NEGATIVE NEGATIVE Urine Phencyclidine Screen NEGATIVE NEGATIVE Urine Amphetamines Screen POSITIVE H NEGATIVE Urine Methamphetamines Screen POSITIVE H NEGATIVE Urine Benzodiazepines Screen POSITIVE H NEGATIVE Urine Cocaine Screen NEGATIVE NEGATIVE Urine Cannabinoids Screen NEGATIVE NEGATIVE My Orders Orders - HO,MELVINA [employer]PER[employer] Ua Culture If Indicated (01/14/18 17:13) Ct Abd/Pelv W (Appendicitis) (01/14/18 18:03) Cbc With Automated Diff (01/14/18 18:03) Comprehensive Metabolic Panel (01/14/18 18:03) Hcg,Qualitative Serum (01/14/18 18:03) Saline Lock/Iv-Start (01/14/18 18:03) Ns Iv 1000 Ml (Sodium Chloride 0.9%) (01/14/18 18:03) Iohexol Injection (Omnipaque 350 Mg/Ml 1 (01/14/18 18:15) Ns (Ivpb) (Sodium Chloride 0.9% Ivpb Bag (01/14/18 18:15) Ketorolac Injection (Toradol Injection) (01/14/18 18:27) Urine Culture (01/14/18 19:25) Ceftriaxone Injection (Rocephin Injectio (01/14/18 20:00) Drug Screen Stat (Urine) (01/14/18 20:00) Wet Prep (01/14/18 20:05) Neisseria Gonorrhea Dna (01/14/18 20:05) Chlamydia Dna (01/14/18 20:05) Genital Culture (01/14/18 20:05) Melinda Prep (01/14/18 20:05) Fentanyl Injection (Sublimaze Injection (01/14/18 20:05) Ceftriaxone Injection (Rocephin Injectio (01/14/18 20:09) Ns (Ivpb) (Sodium Chloride 0.9% Ivpb Bag (01/14/18 20:09) Metronidazole Tablet (Flagyl Tablet) (01/14/18 20:30) Medications Given in ED Current Medications Medications Dose Ordered Sig/Randy Route Start Time Stop Time Status Last Admin Dose Admin Ceftriaxone Sodium 1000 mg/ Sodium Chloride 100 ml @ 200 mls/hr ONCE ONCE IV 01/14/18 20:00 01/14/18 20:29 DC 01/14/18 20:18 200 MLS/HR Iohexol 100 ml ONCE ONCE IV 01/14/18 18:15 01/14/18 20:11 DC 01/14/18 18:49 100 ML Metronidazole 500 mg ONCE ONCE PO 01/14/18 20:30 01/14/18 20:39 DC 01/14/18 21:09 500 MG Sodium Chloride 100 ml ONCE ONCE IV 01/14/18 18:15 01/14/18 20:11 DC 01/14/18 18:49 100 ML Sodium Chloride 1,000 ml @ 0 mls/hr Q0M ONCE IV 01/14/18 18:03 01/14/18 18:05 DC 01/14/18 18:18 1,000 MLS/HR Vital Signs/I&O Vital Sign - Last 12Hours 01/14/18 17:05 Temp 97.9 Pulse 111 Resp 18 B/P (MAP) 129/95 (106) Pulse Ox 100 Intake and Output 01/15/18 00:00 Intake Total 1000 ml Balance 1000 ml Capillary Refill : Less Than 3 Seconds Blood Pressure Mean: 106 Progress Note : Time: 17:30 Progress Note Initial evaluation completed, labs and 1 L normal saline. [address] abdomen and pelvis. Serum negative. 1844 CT negative for acute abdominal findings. Recommended pelvic exam. 1999 Rocephin 1 g IV and Flagyl 500 mg by mouth. 2044 charge instructions and return precautions reviewed with patient. All questions answered. Diagnostic Imaging Diagonstic Imaging: CT Plain Films/CT/US/NM/MRI: abdomen, pelvis Comments NAME: ALE KELLER [facility] REC#: [id number] PT STATUS: REG ER : 1995 PHYSICIAN: MELVINA TEAGUE ADMIT DATE: 01/14/18/ER Draft Date of Exam:01/14/18 CT ABD/PELV W (APPENDICITIS) PROCEDURE: CT abdomen and pelvis with contrast, rule out appendicitis. TECHNIQUE: Multiple contiguous axial images were obtained through the abdomen and pelvis after the administration of intravenous contrast. INDICATION: Abdominal pain. COMPARISON: CT abdomen and pelvis without contrast 07/23/2016. FINDINGS: Lung bases are clear. Cholecystectomy. The appendix is negative. The liver, pancreas, spleen, adrenals, collecting systems and partially opacified bladder are negative. IUD. No free intraperitoneal air or fluid. No lymphadenopathy. No evidence of bowel obstruction or inflammation. IMPRESSION: No acute CT findings in the abdomen or pelvis. Dictated on workstation # [id number] Dict: 01/14/181930 Trans: 01/14/181941 [id number] Interpreted by: FRANCES HERNANDEZ MD Electronically signed by: Departure Impression Impression: Primary Impression: Urinary tract infection Qualified Codes: N30.01 - Acute cystitis with hematuria Additional Impression: Bacterial vaginosis Disposition: HOME, SELF-CARE Condition: Improved Departure-Patient Inst. Decision time for Depature: 20:45 Referrals: YOVANNY MONTES DO (PCP) Primary Care Physician SOHAIL BACK (Family) Primary Care Physician Patient Instructions: Urinary Tract Infection, Adult (DC), Bacterial Vaginosis (DC) Add. Discharge Instructions: Eat 1 cup of yogurt daily. Increase water intake, and empty bladder every 2 hours while awake. Follow up with Dr. Kaur regarding the Mirena and continued vaginal bleeding. Take Bactrim and Flagyl as prescribed. May use tampons but otherwise vaginal rest (no intercourse or douching) May use Tylenol 650 mg alternating with ibuprofen 600 mg every 4 hours for pain or fever. Return to emergency department for fever greater than 101, increased abdominal pain, nausea and vomiting, or new problems. All discharge instructions reviewed with patient and/or family. Voiced understanding. Scripts Metronidazole (Flagyl) 500 Mg Tablet 500 MG PO BID, #10 TAB 0 Refills Prov: MELVINA TEAGUE 01/14/18 Sulfamethoxazole/Trimethoprim (Bactrim 400-80 mg Tablet) 1 Each Tablet 1 EACH PO BID for 5 Days, #10 TAB 0 Refills Prov: MELVINA TEAGUE 01/14/18 Copy Copies To 1: BLAIR KAUR MD, AMY ARNP Jan 14, 2018 20:00
[2018-01-14] MEDS ORDERED: fentaNYL INJECTION 100 MCG/2 ML AMP IVP STA (20:05)
[2018-01-14] MEDS ORDERED: NS (IVPB) 100 ML ONE (20:09)
[2018-01-14] MEDS ORDERED: cefTRIAXone 1 GM (ROCEPHIN) VIAL ONE (20:09)
[2018-01-14] MEDS ORDERED: metroNIDAZOLE 500 MG (FLAGYL) TAB PO ONE (20:30)
[2018-01-14] MEDS ORDERED: SULF1TAB34 PO (20:58)
[2018-01-14] MEDS ORDERED: METR500T PO (20:58)
[2018-01-14 21:00] LABS: AMPHETAMINE SCREEN, URINE POSITIVE (NEGATIVE); BARBITURATE SCREEN URINE NEGATIVE (NEGATIVE); BENZODIAZEPINES SCREEN URINE POSITIVE (NEGATIVE); CANNABINOID SCREEN, URINE NEGATIVE (NEGATIVE); COCAINE SCREEN URINE NEGATIVE (NEGATIVE); METHADONE STAT NEGATIVE (NEGATIVE); METHAMPHETAMINE SCREEN URINE S POSITIVE (NEGATIVE); OPIATE SCREEN URINE POSITIVE (NEGATIVE); OXYCODONE STAT NEGATIVE (NEGATIVE); PROPOXYPHENE STAT NEGATIVE (NEGATIVE); TRICYCLIC ANTIDEPRESSANTS SCRE NEGATIVE (NEGATIVE)
[2018-01-14 21:11] VITALS: BP 133/92
== END 2018-01-14 21:11 | disposition home or self-care (01) ==
LOC: EDUNIT# 16:59 → ER 17:01
DX: N39.0 Urinary tract infection, site not specified (principal); N76.0 Acute vaginitis; G43.909 Migraine, unspecified, not intractable, without status migrainosus; F12.90 Cannabis use, unspecified, uncomplicated; F15.90 Other stimulant use, unspecified, uncomplicated; F17.210 Nicotine dependence, cigarettes, uncomplicated; Z87.09 Personal history of other diseases of the respiratory system; Z87.19 Personal history of other diseases of the digestive system; Z87.442 Personal history of urinary calculi; Z87.59 Personal history of other complications of pregnancy, childbirth and the puerperium; Z90.89 Acquired absence of other organs; Z88.8 Allergy status to other drugs, medicaments and biological substances
CPT/HCPCS: 36415; 74177; 80053; 80306; 81000; 84703; 85025; 87070; 87088; 87186; 87210; 87220; 87491; 87591; 96361; 96365; 96375

== ENCOUNTER 2019-03-21 01:05 | Emergency (ER) | payer MEDICAID ==
[~2019-03-21] VITALS: Ht 160 cm; Wt 49.9 kg
[~2019-03-21 01:05] MED LIST changes: +METR-145 PO; -METR500T21 PO; +SULF1TAB34 PO
[2019-03-21] MEDS ORDERED: SULF1TAB35 PO (02:11)
[2019-03-21] MEDS ORDERED: NAPR-915 PO (02:11)
--- NOTE | 2019-03-21 02:11 | ED Integumentary General ---
General Chief Complaint: Bite-Animal/Human/Insect Stated Complaint: SPIDER BITE Allergies and Home Medications Allergies Coded Allergies: dexamethasone (Unverified Adverse Reaction, Intermediate, 09/04/13) Home Medications Butalb/Acetaminophen/Caffeine 1 Each Capsule, 1-2 EACH PO Q6H PRN for HEADACHE Prescribed by: BISI MÁRQUEZ on 06/15/172126 Metronidazole 500 Mg Tablet, 500 MG PO BID Prescribed by: MELVINA TEAGUE on 01/14/182057 Ondansetron 4 Mg Tab.rapdis, 4 MG PO Q4H Prescribed by: BISI MÁRQUEZ on 06/15/172126 Sulfamethoxazole/Trimethoprim 1 Each Tablet, 1 EACH PO BID Prescribed by: MELVINA TEAGUE on 01/14/182057 Past Igdayqb-Rdxgti-Iqrtlf Hx Patient Social History Alcohol Beverage of Choice: Wine Drug of Choice: methamphetamines Type Used: Cigarettes Recent Foreign Travel: No Contact w/Someone Who Travel: No Recent Hopitalizations: Yes ( et hematoma removal) Immunizations Up To Date Tetanus Booster (TDap): Less than 5yrs Date of Influenza Vaccine: Jun 17, 2016 Seasonal Allergies Seasonal Allergies: No Past Medical History Surgeries: Yes (KIDNEY STONE REMOVAL/LITHORIPSY; X 1) Section, Gallbladder, Renal, Tonsillectomy Respiratory: No Cardiac: No Neurological: Yes Headaches /Migraines Reproductive Disorders: No Female Reproductive Disorders: Menstrual Problems Sexually Transmitted Disease: No HIV/AIDS: No Genitourinary: Yes Kidney Stones Gastrointestinal: Yes Gall Bladder Disease Musculoskeletal: No Endocrine: No Tonsilitis Cancer: No Psychosocial: No Integumentary: No Blood Disorders: No Family Medical History Patient reports no known family medical history. No Pertinent Family Hx Physical Exam Vital Signs Capillary Refill : Progress/Results/Core Measures Results/Orders My Orders Orders - BISI MÁRQUEZ DO Wound Culture (03/21/19 02:06) Rx-Naproxen (Rx-Naprosyn) (03/21/19 02:15) Rx-Trimeth/Sulfameth Ds Tab (Rx-Bactrim/ (03/21/19 02:15) Departure Impression Primary Impression: Cellulitis of right hip Additional Impression: SUSPECTED MRSA Disposition: HOME, SELF-CARE Condition: Stable Departure-Patient Inst. Referrals: ANNA GUADARRAMA MD (PCP) Primary Care Physician SOHAIL BACK (Family) Primary Care Physician Patient Instructions: Cellulitis (Skin Infection), Adult (DC), Methicillin- Resistant Staphylococcus aureus (MRSA) Add. Discharge Instructions: KEEP AREA CLEAN DRY AND COVERED DO NOT POKE, PICK AT OR SQUEEZE THE AREA MOIST HEAT TO AREA AT 20 MINUTE INTERVALS TYLENOL NEEDED FOR PAIN FOLLOW UP WITH DR. GUADARRAMA IN 1-2 DAYS FOR FURTHER CARE All discharge instructions reviewed with patient and/or family. Voiced understanding. Scripts Naproxen (Naproxen) 500 Mg Tablet 500 MG PO BID, #20 TAB Prov: BISI MÁRQUEZ DO 03/21/19 Sulfamethoxazole/Trimethoprim (Bactrim Ds Tablet) 1 Each Tablet 1 EACH PO BID, #20 TAB Prov: BISI MÁRQUEZ DO 03/21/19 BISI MÁRQUEZ DO Mar 21, 2019 02:11
[2019-03-21] MEDS ORDERED: RX-NAPROXEN (NAPROSYN) 250 MG TAB PPK#4 PO ONE (02:15)
[2019-03-21] MEDS ORDERED: RX-TRIMETH/SULFA. 160-800 MG (BACTRIM DS) TAB PPK#2 PO ONE (02:15)
[2019-03-21 02:25] VITALS: BP 161/105
== END 2019-03-21 02:26 | disposition home or self-care (01) ==
LOC: EDUNIT# 01:05 → ER 01:07
DX: L03.115 Cellulitis of right lower limb (principal); G43.909 Migraine, unspecified, not intractable, without status migrainosus; Z87.19 Personal history of other diseases of the digestive system; Z88.8 Allergy status to other drugs, medicaments and biological substances; Z87.442 Personal history of urinary calculi; Z98.890 Other specified postprocedural states; Z90.89 Acquired absence of other organs
CPT/HCPCS: 87070; 87077; 87186; 87205; 99283

== ENCOUNTER → 2019-12-15 | Outpatient (CLI) | payer OTHER ==
[~2019-12-15] MED LIST changes: +ACHYD1T PO; -HYDR-3820 PO; +NAPR-915 PO; +SULF1TAB35 PO; -TRAM50TA2 PO; +TRM50T PO
== END ==
LOC: FNS 16:27 → MERGE 16:27
PROVIDERS: ATTEND Emergency Medicine
DX: Z02.89 Encounter for other administrative examinations (principal)

== ENCOUNTER → 2019-12-15 | Outpatient (CLI) | payer MEDICAID | LOC: FNS 16:31 | PROVIDERS: ATTEND Emergency Medicine | DX: Z02.89 Encounter for other administrative examinations (principal) ==

== ENCOUNTER 2020-05-12 12:14 | Emergency (ER) | payer MEDICAID, OTHER ==
--- OUTSIDE RECORDS SUMMARY | 2020-05-12 13:59 | XMS REPORT ---
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 Active 43684774 Problem Generalized anxiety disorder F41.1 A ctive [id number] Problem Post depression F53 Active [id number] ALLERGIES Substance Reaction Event Type Date Status Decadron flushing of skin Non Drug Allergy February, Active ENCOUNTERS Encounter Location Date Diagnosis [facility] [address] [phone] February, [facility] [address] [place] [phone] Dec, Encounter for IUD insertion Z30.430 and IUD (intrauterine device) in place Z97.5 [facility] [address] [id number] [place] [phone] Oct, Encounter for control pills maintenance Z30.41 [facility] [address] [id number] [place] [phone] Sep, Other viral agents as the ca use of diseases classified elsewhere B97.89 and Acute upper respiratory infection, unspecified J06.9 [facility] [address] [place], [place] [id number] [address] [place] [phone] Sep, control counseling Z30 .09 [facility] [address] [place] [id number] [address] [place] [phone] Jun, Pharyngitis due to other org anism J02.8 [facility] [address] [facility] [id number] [address] [place] [phone] Jun, Viral gastroenteritis A08.4 [facility] [address] [facility] [id number] [address] [place] [phone] May, [facility] [address] [facility] [id number] [address] [place] [phone] May, Encounter for control pills maintenance Z30.41 [facility] [address] [facility] [id number] [address] [place] [phone] Jan, [facility] [address] [facility] [id number] [address] [place] [phone] Jan, Generalized anxiety disorder F41.1 and Severe single current episode of major depressive disorder, without psychotic features F32.2 [facility] [address] [facility] [id number] [address] [place] [phone] Sep, [facility] [address] [facility] [id number] [address] [place] [phone] Aug, [facility] [address] [facility] [id number] [address] [place] [phone] Aug, Post depression F53 a nd Encounter for Depo-Provera contraception Z30.42 [facility] [address] [facility] [id number] [address] [place] [phone] Aug, [facility] [address] [facility] [id number] [address] [place] [phone] Aug, [facility] [address] [facility] [id number] [address] [place] [phone] Aug, [facility] [address] [facility] [id number] [address] [place] [phone] Aug, [facility] [address] [facility] [id number] [address] [place] [phone] Aug, Post depression F53 [facility] [id number] [place] [phone] Aug, [facility] [address] [id number] [address] [place] [phone] Aug, Generalized anxiety disorder F41.1 and depression F53 [facility] [address] [id number] [place] [address] Aug, [facility] [address] [facility] [id number] [address] [place] [phone] Aug, depression F53 ; Generalized anxiety disorder F41.1 and Other mental disorders complicating the puerperium O99.345 [facility] [address] [id number] [address] [place] [phone] Aug, [facility] [address] [id number] [address] [place] [phone] Aug, Major depressive disorder, s wilfredo episode, unspecified F32.9 ; Other mental disorders complicating the puerperium O99.345 and Dysuria R30.0 [facility] [address] [id number] [address] [place] [phone] Aug, [facility] [address] [id number] [address] [place] [phone] Aug, [facility] [address] [facility] [id number] [address] [place] [phone] Jul, Post depression F53 a nd Headache, unspecified headache type R51 [facility] [address] [id number] [address] [place] [phone] Jul, [facility] [address] [id number] [place] [address] Jul, [facility] [address] [id number] [address] [place] [phone] Jul, depression F53 [facility] [address] [id number] [address] [place] [phone] Jul, Post depression F53 [facility] [address] [id number] [address] [place] [phone] Jul, [facility] [address] [id number] [place] [address] Jul, [facility] [address] [id number] [place] [address] Jul, [facility] [address] [id number] [address] [place] [phone] 28 Jun, 2016 care in third trime ster Z34.93 [facility] [address] [id number] [address] [place] [phone] 21 Jun, 2015 care in third trime ster Z34.93 and 39 weeks gestation of Z3A.39 [facility] [address] [id number] [address] [place] [phone] 20 Jun, 2016 [facility] [address] [id number] [address] [place] [phone] 14 Jun, 2015 [facility] [address] [id number] [address] [place] [phone] 14 Jun, 2016 care in third trime ster Z34.93 [facility] [address] [id number] [address] [place] [phone] 07 Jun, 2016 [facility] [address] [id number] [address] [place] [phone] 07 Jun, 2016 care in third trime ster Z34.93 [facility] [address] [id number] [address] [place] [phone] May, [facility] [address] [id number] [address] [place] [phone] May, care in third trime ster Z34.93 [facility] [address] [id number] [address] [place] [phone] May, care in third trime ster Z34.93 [facility] [address] [id number] [address] [place] [phone] May, [facility] [address] [id number] [address] [place] [phone] May, [facility] [address] [id number] [address] [place] [phone] May, [facility] [address] [id number] [address] [place] [phone] May, [facility] [address] [id number] [address] [place] [phone] May, Normal , first Z34. 00 [facility] [address] [id number] [address] [place] [phone] May, [facility] [address] [id number] [address] [place] [phone] Apr, [facility] [address] [id number] [address] [place] [phone] Apr, Normal , first Z34. 00 and Encounter for immunization Z23 [facility] [address] [id number] [address] [place] [phone] Apr, [facility] [address] [id number] [address] [place] [phone] Apr, care, first pregnan cy in third trimester Z34.03 [facility] [address] [id number] [address] [place] [phone] Mar, Normal , first Z34. 00 [facility] [address] [id number] [address] [place] [phone] Mar, [facility] [address] [id number] [address] [place] [phone] Mar, Normal , first Z34. 00 [facility] [address] [id number] [address] [place] [phone] Mar, [facility] [address] [id number] [address] [place] [phone] Mar, Normal in second t rimester Z34.92 [place] [id number] [facility] [id number] [address] [place] [phone] February, 22 weeks gestation of pregna ncy Z3A.22 [facility] [address] [facility] [id number] [address] [place] [phone] February, [place] [address] [facility] [id number] [address] [place] [phone] February, [place] [address] [facility] [id number] [address] [place] [phone] February, care, first pregnan cy in second trimester Z34.02 ; Fall, initial encounter W19.XXXA and 22 weeks gestation of Z3A.22 [facility] [address] [id number] [place] [address] February, [facility] [address] [id number] [place] [address] February, [place] [address] [facility] [id number] [address] [place] [phone] Jan, care, first pregnan cy in first trimester Z34.01 [place] [address] [facility] [id number] [address] [place] [phone] Dec, [place] [address] [facility] [id number] [address] [place] [phone] Dec, with 14 completed weeks gestation Z3A.14 ; care, first in second trimester Z34.02 and Routine screening for STI (sexually transmitted infection) Z11.3 [place] [address] [facility] [id number] [address] [place] [phone] Dec, care, first pregnan cy in first trimester Z34.01 ; with 12 completed weeks gestation Z3A.12 and Abdominal cramping R10.9 [place] [address] [facility] [id number] [address] [place] [phone] Dec, Normal , first Z34. 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 and Needs flu shot Z23 [facility] [address], [place] [id number] 57 Nov, Amenorrhea N91.2 [facility] [address] [facility] [id number] [address] [place] [address] Sep, IMMUNIZATIONS No Known Immunizations SOCIAL HISTORY Never Assessed REASON FOR VISIT Eye itching JStrasserRN PLAN OF CARE VITAL SIGNS Height 63.25 in 2018-02-28 Weight 116.2 lbs 2018-02-28 Temperature 97.8 degrees Fahrenheit 2018-02-28 Heart Rate 92 bpm 2018-02-28 Respiratory Rate 18 2018-02-28 BMI 20.42 kg/m2 2018-02-28 MEDICATIONS Medication Instructions Dosage Frequency Start Date End Date Duration S tatus Clonidine HCl 0.1 MG Orally Once a day 1 tablet at bedtime 24h 0 5 Jan, 2017 30 day(s) Unknown Sertraline HCl 50 MG Orally Once a day 1 tablet 24h Aug, 30 day(s) Unknown Abilify 2 MG Orally Once a day 1 tablet 24h Aug, Unknown Tylenol 325 MG Orally every 6 hrs 1 tablet as needed 6h Unknown Maxalt 5 MG Orally Once a day 1 tablet as needed one time 24h Not-Taking Classic 28-0.8 MG Orally Once a day as directed 24h Nov, 90 days Unknown Paxil 20 MG Orally Once a day 1 tablet in the morning 24h Jul 30 day(s) Unknown Promethazine-Codeine 6.25-10 MG/5ML Orally every 6 hrs 5 ml as need ed 6h 20 Jun, 2017 Unknown Amitriptyline HCl 10 MG Orally Once a day 1 tablet 24h Unknown Diflucan 150 MG Orally one time 1 tablet today and one tablet in 4 days Aug, Unknown Lexapro 10 mg Orally Once a day 1 tablet 24h Jan, 30 day(s) Unknown Zyrtec Allergy Active RESULTS No Results PROCEDURES No Known procedures INSTRUCTIONS MEDICATIONS ADMINISTERED No Known Medications MEDICAL (GENERAL) HISTORY Type Description Date Medical History post depression Surgical History Tonsillectomy & adenoidectomy Surgical History Kidney stones removal 2009 Surgical History section 06/2016 Surgical History hematoma removal 06/2016 Surgical History cholecystectomy 10/2016 Hospitalization History Kidney stone Hospitalization History Fell down 4 stairs while [age] Hospitalization History surgeries and child
--- OUTSIDE RECORDS SUMMARY | 2020-05-12 14:00 | XMS REPORT ---
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 Active 88548473 Problem Generalized anxiety disorder F41.1 A ctive 42406366 Problem Post depression F53 Active [id number] ALLERGIES Substance Reaction Event Type Date Status Decadron flushing of skin Non Drug Allergy Sep, Active ENCOUNTERS Encounter Location Date Diagnosis [facility] [address] [id number] [address] [place] [phone] February, [facility] [address] [address] Dec, Encounter for IUD insertion Z30.430 and IUD (intrauterine device) in place Z97.5 [facility] [address] [id number] [address] [place] [phone] Oct, Encounter for control pills maintenance Z30.41 [facility] [address] [id number] [address] [place] [phone] Sep, Other viral agents as the ca use of diseases classified elsewhere B97.89 and Acute upper respiratory infection, unspecified J06.9 [facility] [address] [id number] [address] [place] [phone] Sep, control counseling Z30 .09 [facility] [address] [id number] [address] [place] [phone] Jun, Pharyngitis due to other org anism J02.8 [facility] [address] [facility] [id number] [address] [place] [phone] 08 Jun, 2017 Viral gastroenteritis A08.4 [facility] [address] [facility] [id number] [address] [place] [phone] May, [facility] [address] [facility] [id number] [address] [place] [phone] May, Encounter for control pills maintenance Z30.41 [facility] [address] [facility] [id number] [address] [place] [phone] Jan, [facility] [address] [facility] [id number] [address] [place] [phone] Jan, Generalized anxiety disorder F41.1 and Severe single current episode of major depressive disorder, without psychotic features F32.2 [facility] [address] [facility] [id number] [address] [place] [phone] Sep, [facility] [address] [facility] [id number] [address] [place] [phone] Aug, [facility] [address] [facility] [id number] [address] [place] [phone] Aug, Post depression F53 a nd Encounter for Depo-Provera contraception Z30.42 [facility] [address] [facility] [id number] [address] [place] [phone] Aug, [facility] [address] [facility] [id number] [address] [place] [phone] Aug, [facility] [address] [facility] [id number] [address] [place] [phone] Aug, [facility] [address] [facility] [id number] [address] [place] [phone] Aug, [facility] [address] [facility] [id number] [address] [place] [phone] Aug, Post depression F53 [facility] [address] [id number] [place] [address] Aug, [facility] [address] [facility] [id number] [address] [place] [phone] Aug, Generalized anxiety disorder F41.1 and depression F53 [facility] [address] [id number] [place] [address] Aug, [facility] [address] [facility] [id number] [address] [place] [phone] Aug, depression F53 ; Generalized anxiety disorder F41.1 and Other mental disorders complicating the puerperium O99.345 [facility] [address] [id number] [address] [place] [phone] Aug, [facility] [address] [facility] [id number] [address] [place] [phone] Aug, Major depressive disorder, s wilfredo episode, unspecified F32.9 ; Other mental disorders complicating the puerperium O99.345 and Dysuria R30.0 [facility] [address] [id number] [address] [place] [address] Aug, [facility] [address] [id number] [address] [place] [phone] Aug, [facility] [address] [facility] [id number] [address] [place] [phone] Jul, Post depression F53 a nd Headache, unspecified headache type R51 [facility] [address] [id number] [address] [place] [phone] Jul, [facility] [address] [id number] [place] [address] Jul, [facility] [address] [id number] [address] [place] [address] Jul, depression F53 [facility] [address] [facility] [id number] [address] [place] [phone] Jul, Post depression F53 [facility] [address] [id number] [address] [place] [phone] 17 Jul, 2016 [facility] [address] [id number] [place] [address] Jul, [facility] [address] [id number] [place] [address] Jul, [facility] [address] [id number] [address] [place] [phone] 28 Jun, 2015 care in third trime ster Z34.93 [facility] [address] [id number] [address] [place] [phone] 21 Jun, 2015 care in third trime ster Z34.93 and 39 weeks gestation of Z3A.39 [facility] [address] [id number] [address] [place] [phone] 20 Jun, 2015 [facility] [address] [id number] [address] [place] [phone] 14 Jun, 2015 [facility] [address] [id number] [address] [place] [phone] 14 Jun, 2016 care in third trime ster Z34.93 [facility] [address] [id number] [address] [place] [phone] 07 Jun, 2016 [facility] [address] [id number] [address] [place] [phone] 07 Jun, 2016 care in third trime ster Z34.93 [facility] [address] [id number] [address] [place] [phone] May, [facility] [address] [id number] [address] [place] [phone] May, care in third trime ster Z34.93 [facility] [address] [id number] [address] [place] [phone] May, care in third trime ster Z34.93 [facility] [address] [id number] [address] [place] [address] May, [facility] [address] [id number] [address] [place] [phone] May, [facility] [address] [id number] [address] [place] [phone] May, [facility] [address] [id number] [address] [place] [phone] May, [facility] [address] [id number] [address] [place] [address] May, Normal , first Z34. 00 [facility] [address] [id number] [address] [place] [phone] May, [facility] [address] [id number] [address] [place] [phone] Apr, [facility] [address] [id number] [address] [place] [phone] Apr, Normal , first Z34. 00 and Encounter for immunization Z23 [facility] [address] [id number] [address] [place] [phone] Apr, [facility] [address] [id number] [address] [place] [address] Apr, care, first pregnan cy in third trimester Z34.03 [facility] [address] [id number] [address] [place] [phone] Mar, Normal , first Z34. 00 [facility] [address] [id number] [address] [place] [phone] Mar, [facility] [address] [id number] [address] [place] [address] Mar, Normal , first Z34. 00 [facility] [address] [id number] [address] [place] [phone] Mar, [facility] [address] [id number] [address] [place] [phone] Mar, Normal in second t rimester Z34.92 [place] [address] [id number] [address] [place] [phone] February, 22 weeks gestation of pregna ncy Z3A.22 [facility] [address] [facility] [id number] [address] [place] [phone] February, [place] [address] [facility] [id number] [address] [place] [phone] February, [place] [address] [facility] [id number] [address] [place] [phone] February, care, first pregnan cy in second trimester Z34.02 ; Fall, initial encounter W19.XXXA and 22 weeks gestation of Z3A.22 [facility] [address] [id number] [place] [address] February, [facility] [address] [id number] [place] [address] February, [place] [address] [facility] [id number] [address] [place] [phone] Jan, care, first pregnan cy in first trimester Z34.01 [place] [address] [facility] [id number] [address] [place] [phone] Dec, [place] [address] [facility] [id number] [address] [place] [phone] Dec, with 14 completed weeks gestation Z3A.14 ; care, first in second trimester Z34.02 and Routine screening for STI (sexually transmitted infection) Z11.3 [place] [address] [facility] [id number] [address] [place] [phone] Dec, care, first pregnan cy in first trimester Z34.01 ; with 12 completed weeks gestation Z3A.12 and Abdominal cramping R10.9 [place] [address] [facility] [id number] [address] [place] [address] Dec, Normal , first Z34. 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 [address] [place], [place] [id number] 57 Nov, Amenorrhea N91.2 [facility] [address] [facility] [id number] [address] [place] [address] Sep, IMMUNIZATIONS No Known Immunizations SOCIAL HISTORY Never Assessed REASON FOR VISIT Vaginal bleeding, irregular--Albertina, Pt has not had a period in 4 months. To ok home test and is negative., -Started her control pills back u p 2 weeks ago. PLAN OF CARE Activity Details Follow Up Will call when device arrive s Reason: VITAL SIGNS Height 63.25 in 2017-10-04 Weight 114.9 lbs 2017-10-04 Temperature 98.5 degrees Fahrenheit 2017-10-04 Heart Rate 80 bpm 2017-10-04 Respiratory Rate 16 2017-10-04 BMI 20.19 kg/m2 2017-10-04 Blood pressure systolic 110 mmHg 2017-10-04 Blood pressure diastolic 72 mmHg 2017-10-04 MEDICATIONS Medication Instructions Dosage Frequency Start Date End Date Duration S tatus Diflucan 150 MG Orally one time 1 tablet today and one tablet in 4 days Aug, Not-Taking Classic 28-0.8 MG Orally Once a day as directed 24h Nov, 90 days Not-Taking Maxalt 5 MG Orally Once a day 1 tablet as needed one time 24h Active Ortho-Cyclen (28) 0.25-35 MG-MCG Orally Once a day 1 tablet 24h May, 90 days Active Abilify 2 MG Orally Once a day 1 tablet 24h Aug, Not-Taking Amitriptyline HCl 10 MG Orally Once a day 1 tablet 24h Not-Taking Tylenol 325 MG Orally every 6 hrs 1 tablet as needed 6h Not-Taking Sertraline HCl 50 MG Orally Once a day 1 tablet 24h Aug, 30 day(s) Not-Taking Lexapro 10 mg Orally Once a day 1 tablet 24h Jan, 30 day(s) Not-Taking Promethazine-Codeine 6.25-10 MG/5ML Orally every 6 hrs 5 ml as need ed 6h 20 Jun, 2017 Not-Taking Clonidine HCl 0.1 MG Orally Once a day 1 tablet at bedtime 24h 0 5 Jan, 2017 30 day(s) Not-Taking Paxil 20 MG Orally Once a day 1 tablet in the morning 24h 27 Jul 30 day(s) Not-Taking RESULTS Name Result Date Reference Range TEST, URINE (IN HOUSE) 2017-10-04 RESULTS Negative Lot # [id number] Control + Exp date 01/14/19 PROCEDURES Procedure Date Ordered Result Body Site URINE TEST Oct 04, 2017 INSTRUCTIONS MEDICATIONS ADMINISTERED No Known Medications MEDICAL [...]
--- OUTSIDE RECORDS SUMMARY | 2020-05-12 14:00 | XMS REPORT ---
Author Author Tiara KAUR Organization [facility] Address [address] [place] [address] Care Team Providers Care Procurement Manager Name Role Phone BLAIR KAUR Unavailable PROBLEMS Type Condition ICD9-CM Code FLI25-VD Code Onset Dates Condition S tatus SNOMED Code Problem Severe single current episod e of major depressive disorder, without psychotic features F32.2 Active 98557970 Problem Generalized anxiety disorder F41.1 A ctive [id number] Problem Post depression F53 Active [id number] ALLERGIES No Information ENCOUNTERS Encounter Location Date Diagnosis [facility] IN [facility] [address] [address] February, [facility] [address] [address] Dec, Encounter for IUD insertion Z30.430 and IUD (intrauterine device) in place Z97.5 [facility] [address] [place] [id number] [place] [address] Oct, Encounter for control pills maintenance Z30.41 [facility] IN [facility] [address] [address] Sep, Other viral agents as the ca use of diseases classified elsewhere B97.89 and Acute upper respiratory infection, unspecified J06.9 [facility] [address] [address] Sep, control counseling Z30 .09 [facility] IN [facility] [address] [place] [id number] [place] [address] Jun, Pharyngitis due to other org anism J02.8 [facility] IN [place] [address] [place] [address] 08 Jun, 2017 Viral gastroenteritis A08.4 [facility] [address] [facility] [id number] [address] [place] [address] May, [facility] [address] [facility] [id number] [address] [place] [address] May, Encounter for control pills maintenance Z30.41 [facility] [address] [facility] [id number] [address] [place] [address] Jan, [facility] [address] [facility] [id number] [address] [place] [phone] 05 Jan, 2017 Generalized anxiety disorder F41.1 and Severe single current episode of major depressive disorder, without psychotic features F32.2 [facility] [address] [place] [id number] [place] [phone] 07 Sep, 2016 [facility] [address] [place] [id number] [place] [address] Aug, [facility] [address] [facility] [id number] [address] [place] [address] Aug, Post depression F53 a nd Encounter for Depo-Provera contraception Z30.42 [facility] [address] [facility] [id number] [address] [place] [address] Aug, [facility] [address] [facility] [id number] [address] [place] [address] Aug, [facility] [address] [place] [id number] [place] [address] Aug, [facility] [address] [facility] [id number] [address] [place] [phone] Aug, [facility] [address] [place] [id number] [place] [phone] Aug, Post depression F53 [facility] [place] [address] [facility] [id number] [place] [address] Aug, [facility] [address] [id number] [address] [place] [phone] Aug, Generalized anxiety disorder F41.1 and depression F53 [facility] [address] [id number] [place] [address] Aug, [facility] [address] [facility] [id number] [address] [place] [address] Aug, depression F53 ; Generalized anxiety disorder F41.1 and Other mental disorders complicating the puerperium O99.345 [facility] [address] [id number] [address] [place] [phone] Aug, [facility] [address] [id number] [address] [place] [phone] Aug, Major depressive disorder, s wilfredo episode, unspecified F32.9 ; Other mental disorders complicating the puerperium O99.345 and Dysuria R30.0 [facility] [address] [id number] [address] [place] [address] Aug, [facility] [address] [id number] [address] [place] [address] Aug, [facility] [address] [facility] [id number] [address] [place] [address] Jul, Post depression F53 a nd Headache, unspecified headache type R51 [facility] [address] [id number] [address] [place] [address] Jul, [facility] [address] [id number] [place] [address] Jul, [facility] [address] [id number] [address] [place] [address] Jul, depression F53 [facility] [address] [facility] [id number] [address] [place] [address] Jul, Post depression F53 [facility] [address] [facility] [id number] [address] [place] [phone] Jul, [facility] [address] [id number] [place] [address] Jul, [facility] [address] [id number] [place] [address] Jul, [facility] [address] [id number] [address] [place] [phone] 28 Jun, 2016 care in third trime ster Z34.93 [facility] [address] [id number] [address] [place] [phone] 21 Jun, 2016 care in third trime ster Z34.93 and 39 weeks gestation of Z3A.39 [facility] [address] [id number] [address] [place] [address] 20 Jun, 2016 [facility] [address] [id number] [address] [place] [phone] 14 Jun, 2016 [facility] [address] [id number] [address] [place] [address] 14 Jun, 2016 care in third trime ster Z34.93 [facility] [address] [id number] [address] [place] [phone] 07 Jun, 2016 [facility] [address] [id number] [address] [place] [phone] 07 Jun, 2016 care in third trime ster Z34.93 [facility] [address] [id number] [address] [place] [phone] May, [facility] [address] [id number] [address] [place] [address] May, care in third trime ster Z34.93 [facility] [address] [id number] [address] [place] [address] May, care in third trime ster Z34.93 [facility] [address] [id number] [address] [place] [address] May, [facility] [address] [id number] [address] [place] [phone] May, [facility] [address] [id number] [address] [place] [phone] May, [facility] [address] [id number] [address] [place] [address] May, [facility] [address] [id number] [address] [place] [phone] May, Normal , first Z34. 00 [facility] [address] [id number] [address] [place] [address], [place] [address] May, [facility] [address] [id number] [address] [place] [address] Apr, [facility] [address] [id number] [address] [place] [phone] Apr, Normal , first Z34. 00 and Encounter for immunization Z23 [facility] [address] [id number] [address] [place] [address] Apr, [facility] [address] [id number] [address] [place] [address] Apr, care, first pregnan cy in third trimester Z34.03 [facility] [address] [id number] [address] [place] [phone] Mar, Normal , first Z34. 00 [facility] [address] [id number] [address] [place] [address] Mar, [facility] [address] [id number] [address] [place] [address] Mar, Normal , first Z34. 00 [facility] [address] [id number] [address] [place] [address] Mar, [facility] [address] [id number] [address] [place] [address] Mar, Normal in second t rimester Z34.92 [facility] [address] [id number] [address] [place] [address] February, 22 weeks gestation of pregna ncy Z3A.22 [facility] [address] [id number] [address] [place] [phone] February, [place] [address] [id number] [address] [place] [phone] February, [place] [address] [address] [facility] [id number] [address] [place] [address] February, care, first pregnan cy in second trimester Z34.02 ; initial encounter W19.XXXA and 22 weeks gestation of Z3A.22 [facility] [address] [id number] [place] [address] February, [facility] [address] [id number] [place] [address] February, [place] [address] [address] [facility] [id number] [address] [place] [address] Jan, care, first pregnan cy in first trimester Z34.01 [place] [address] [address] [facility] [id number] [address] [place] [address] Dec, [place] [address] [address] [facility] [id number] [address] [place] [phone] Dec, with 14 completed weeks gestation Z3A.14 ; care, first in second trimester Z34.02 and Routine screening for STI (sexually transmitted infection) Z11.3 [place] [address] [address] [facility] [id number] [address] [place] [phone] Dec, care, first pregnan cy in first trimester Z34.01 ; with 12 completed weeks gestation Z3A.12 and Abdominal cramping R10.9 [place] [address] [facility] [id number] [address] [place] [phone] Dec, Normal , first Z34. 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
--- OUTSIDE RECORDS SUMMARY | 2020-05-12 14:00 | XMS REPORT ---
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.2 Active 16903626 Problem Generalized anxiety disorder F41.1 A ctive 29972113 Problem Post depression F53 Active [id number] ALLERGIES Substance Reaction Event Type Date Status Decadron flushing of skin Non Drug Allergy Sep, Active ENCOUNTERS Encounter Location Date Diagnosis [facility] [id number] [place] [id number] February, [place] [address] [address] Dec, Encounter for IUD insertion Z30.430 and IUD (intrauterine device) in place Z97.5 [place] [address] [address] [place] [id number] [address] [place] [id number] Oct, Encounter for control pills maintenance Z30.41 [facility] [address] [place] [id number] [address] [place] [id number] Sep, Other viral agents as the ca use of diseases classified elsewhere B97.89 and Acute upper respiratory infection, unspecified J06.9 [place] [address] [place] [id number] [address] [place] [address] Sep, control counseling Z30 .09 [place] [address] [place] [id number] [address] [place] [phone] Jun, Pharyngitis due to other org anism J02.8 [facility] [address] [facility] [id number] [address] [place] [id number] Jun, Viral gastroenteritis A08.4 [facility] [address] [facility] [id number] [address] [place] [address] May, [facility] [address] [facility] [id number] [address] [place] [address] May, Encounter for control pills maintenance Z30.41 [facility] [address] [facility] [id number] [address] [place] [address] Jan, [facility] [address] [facility] [id number] [address] [place] [phone] Jan, Generalized anxiety disorder F41.1 and Severe single current episode of major depressive disorder, without psychotic features F32.2 [facility] [address] [facility] [id number] [address] [place] [id number] Sep, [facility] [address] [facility] [id number] [address] [place] [id number] Aug, [facility] [address] [facility] [id number] [address] [place] [address] Aug, Post depression F53 a nd Encounter for Depo-Provera contraception Z30.42 [facility] [address] [facility] [id number] [address] [place] [phone] Aug, [facility] [address] [facility] [id number] [address] [place] [phone] Aug, [facility] [address] [facility] [id number] [address] [place] [phone] Aug, [facility] [address] [facility] [id number] [address] [place] [id number] Aug, [facility] [address] [facility] [id number] [address] [place] [address] Aug, Post depression F53 [facility] [address] [id number] [place] [address] Aug, [facility] [address] [id number] [address] [place] [phone] Aug, Generalized anxiety disorder F41.1 and depression F53 [facility] [address] [id number] [place] [address] Aug, [facility] [address] [facility] [id number] [address] [place] [id number] Aug, depression F53 ; Generalized anxiety disorder F41.1 and Other mental disorders complicating the puerperium O99.345 [facility] [address] [id number] [address] [place] [phone] Aug, [facility] [address] [id number] [address] [place] [address] Aug, Major depressive disorder, s wilfredo episode, unspecified F32.9 ; Other mental disorders complicating the puerperium O99.345 and Dysuria R30.0 [facility] [address] [id number] [address] [place] [id number] Aug, [facility] [address] [id number] [address] [place] [id number] Aug, [facility] [address] [facility] [id number] [address] [place] [id number] Jul, Post depression F53 a nd Headache, unspecified headache type R51 [facility] [address] [id number] [address] [place] [id number] Jul, [facility] [address] [id number] [place] [address] Jul, [facility] [address] [id number] [address] [place] [id number] Jul, depression F53 [facility] [address] [facility] [id number] [address] [place] [id number] Jul, Post depression F53 [facility] [address] [id number] [address] [place] [phone] Jul, [facility] [address] [id number] [place] [address] Jul, [facility] [address] [id number] [place] [address] Jul, [facility] [address] [id number] [address] [place] [id number] 28 Jun, 2016 care in third trime ster Z34.93 [facility] [address] [id number] [address] [place] [id number] 21 Jun, 2016 care in third trime ster Z34.93 and 39 weeks gestation of Z3A.39 [facility] [address] [id number] [address] [place] [id number] 20 Jun, 2016 [facility] [address] [id number] [address] [place] [id number] 14 Jun, 2015 [facility] [address] [id number] [address] [place] [id number] 14 Jun, 2016 care in third trime ster Z34.93 [facility] [address] [id number] [address] [place] [id number] 07 Jun, 2016 [facility] [address] [id number] [address] [place] [id number] 07 Jun, 2016 care in third trime ster Z34.93 [facility] [address] [id number] [address] [place] [phone] May, [facility] [address] [id number] [address] [place] [id number] May, care in third trime ster Z34.93 [facility] [address] [id number] [address] [place] [id number] May, care in third trime ster Z34.93 [facility] [address] [id number] [address] [place] [phone] May, [facility] [address] [id number] [address] [place] [id number] May, [facility] [address] [id number] [address] [place] [id number] May, [facility] [address] [id number] [address] [place] [id number] May, [facility] [address] [id number] [address] [place] [phone] May, Normal , first Z34. 00 [facility] [address] [id number] [address] [place] [id number] May, [facility] [address] [id number] [address] [place] [id number] Apr, [facility] [address] [id number] [address] [place] [phone] Apr, Normal , first Z34. 00 and Encounter for immunization Z23 [facility] [address] [id number] [address] [place] [id number] Apr, [facility] [address] [id number] [address] [place] [phone] Apr, care, first pregnan cy in third trimester Z34.03 [facility] [address] [id number] [address] [place] [phone] Mar, Normal , first Z34. 00 [facility] [address] [id number] [address] [place] [id number] Mar, [facility] [address] [id number] [address] [place] [phone] Mar, Normal , first Z34. 00 [facility] [address] [id number] [address] [place] [id number] Mar, [facility] [address] [id number] [address] [place] [address] Mar, Normal in second t rimester Z34.92 [place] [address] [facility] [id number] [address] [place] [id number] February, 22 weeks gestation of pregna ncy Z3A.22 [place] [address] [facility] [id number] [address] [place] [id number] February, [place] [address] [facility] [id number] [address] [place] [id number] February, [place] [address] [facility] [id number] [address] [place] [id number] February, care, first pregnan cy in second trimester Z34.02 ; Fall, initial encounter W19.XXXA and 22 weeks gestation of Z3A.22 [facility] [address] [id number] [place] [address] February, [facility] [address] [id number] [place] [address] February, [place] [address] [facility] [id number] [address] [place] [phone] Jan, care, first pregnan cy in first trimester Z34.01 [place] [address] [facility] [id number] [address] [place] [id number] Dec, [place] [address] [facility] [id number] [address] [place] [address] Dec, with 14 completed weeks gestation Z3A.14 ; care, first in second trimester Z34.02 and Routine screening for STI (sexually transmitted infection) Z11.3 [place] [address] [facility] [id number] [address] [place] [phone] Dec, care, first pregnan cy in first trimester Z34.01 ; with 12 completed weeks gestation Z3A.12 and Abdominal cramping R10.9 [place] [address] [facility] [id number] [address] [place] [phone] Dec, Normal , first Z34. 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 and Needs flu shot Z23 [facility] [address] [place] [id number] Nov, Amenorrhea N91.2 [facility] [address] [facility] [id number] [address] [address] Sep, IMMUNIZATIONS No Known Immunizations SOCIAL HISTORY Never Assessed REASON FOR VISIT cough/congestion and throat hurts started yesterday JStrasserRN PLAN OF CARE Activity Details Follow Up prn Reason: VITAL SIGNS Height 63.25 in 2017-10-11 Weight 115.2 lbs 2017-10-11 Temperature 99.1 degrees Fahrenheit 2017-10-11 Heart Rate 68 bpm 2017-10-11 Respiratory Rate 22 2017-10-11 BMI 20.24 kg/m2 2017-10-11 Blood pressure systolic 104 mmHg 2017-10-11 Blood pressure diastolic 68 mmHg 2017-10-11 MEDICATIONS Medication Instructions Dosage Frequency Start Date End Date Duration S alidaus Amitriptyline HCl 10 MG Orally Once a day 1 tablet 24h Not-Taking Maxalt 5 MG Orally Once a day 1 tablet as needed one time 24h Active Benzonatate 200 MG Orally Three times a day 1 capsule 8h Sep, Sep, 5 days Active Diflucan 150 MG Orally one time 1 tablet today and one tablet in 4 days Aug, Not-Taking Abilify 2 MG Orally Once a day 1 tablet 24h 07 Aug, 2016 Not-Taking Sertraline HCl 50 MG Orally Once a day 1 tablet 24h Aug, 30 day(s) Not-Taking Classic 28-0.8 MG Orally Once a day as directed 24h Nov, 90 days Not-Taking Tylenol 325 MG Orally every 6 hrs 1 tablet as needed 6h Not-Taking Promethazine-Codeine 6.25-10 MG/5ML Orally every 6 hrs 5 ml as need ed 6h 20 Jun, 2017 Not-Taking Lexapro 10 mg Orally Once a day 1 tablet 24h Jan, 30 day(s) Not-Taking Ortho-Cyclen (28) 0.25-35 MG-MCG Orally Once a day 1 tablet 24h 10 May, 2017 90 days Active Paxil 20 MG Orally Once a day 1 tablet in the morning 24h 27 Jul 30 day(s) Not-Taking Clonidine HCl 0.1 MG Orally Once a day 1 tablet at bedtime 24h 0 5 Jan, 2017 30 day(s) Not-Taking RESULTS No Results PROCEDURES No Known procedures [...]
--- OUTSIDE RECORDS SUMMARY | 2020-05-12 14:00 | XMS REPORT ---
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, without psychotic features F32.2 Active 34423036 Problem Generalized anxiety disorder F41.1 A ctive 25470685 Problem Post depression F53 Active 52885737 ALLERGIES Substance Reaction Event Type Date Status Decadron flushing of skin Non Drug Allergy Jun, Active ENCOUNTERS Encounter Location Date Diagnosis [place] [address] [address] February, [place] [address] [address] Dec, Encounter for IUD insertion Z30.430 and IUD (intrauterine device) in place Z97.5 [place] [address] [place] [id number] [address] [place] [address] Oct, Encounter for control pills maintenance Z30.41 [facility] [address] [place] [id number] [address] [place] [address] Sep, Other viral agents as the ca use of diseases classified elsewhere B97.89 and Acute upper respiratory infection, unspecified J06.9 [place] [address] [place] [id number] [address] [place] [address] Sep, control counseling Z30 .09 [facility] [address] [place] [id number] [address] [place] [address] Jun, Pharyngitis due to other org anism J02.8 [facility] [address] [facility] [id number] [address] [place] [address] Jun, Viral gastroenteritis A08.4 [facility] [address] [facility] [id number] [address] [place] [address] May, [facility] [address] [facility] [id number] [address] [place] [address] May, Encounter for control pills maintenance Z30.41 [facility] [address] [facility] [id number] [address] [place] [address] Jan, [facility] [address] [facility] [id number] [address] [place] [address] Jan, Generalized anxiety disorder F41.1 and Severe single current episode of major depressive disorder, without psychotic features F32.2 [facility] [address] [facility] [id number] [address] [place] [address] Sep, [facility] [address] [facility] [id number] [address] [place] [address] Aug, [facility] [address] [facility] [id number] [address] [place] [address] Aug, Post depression F53 a nd Encounter for Depo-Provera contraception Z30.42 [facility] [address] [facility] [id number] [address] [place] [address] Aug, [facility] [address] [facility] [id number] [address] [place] [address] Aug, [facility] [address] [facility] [id number] [address] [place] [address] Aug, [facility] [address] [facility] [id number] [address] [place] [address] Aug, [facility] [address] [facility] [id number] [address] [place] [address] Aug, Post depression F53 [facility] [id number] [place] [address] Aug, [facility] [address] [id number] [address] [place] [address] Aug, Generalized anxiety disorder F41.1 and depression F53 [facility] [address] [id number] [place] [address] Aug, [facility] [address] [id number] [address] [place] [address] Aug, depression F53 ; Generalized anxiety disorder F41.1 and Other mental disorders complicating the puerperium O99.345 [facility] [address] [id number] [address] [place] [address] Aug, [facility] [address] [id number] [address] [place] [address] Aug, Major depressive disorder, s wilfredo episode, unspecified F32.9 ; Other mental disorders complicating the puerperium O99.345 and Dysuria R30.0 [facility] [address] [id number] [address] [place] [address] Aug, [facility] [address] [id number] [address] [place] [address] Aug, [facility] [address] [facility] [id number] [address] [place] [address] Jul, Post depression F53 a nd Headache, unspecified headache type R51 [facility] [address] [id number] [address] [place] [address] Jul, [facility] [address] [id number] [place] [address] Jul, [facility] [address] [id number] [address] [place] [address] Jul, depression F53 [facility] [address] [facility] [id number] [address] [place] [address] Jul, Post depression F53 [facility] [address] [id number] [address] [place] [address] Jul, [facility] [address] [id number] [place] [address] Jul, [facility] [address] [id number] [place] [address] Jul, [facility] [address] [id number] [address] [place] [address] 28 Jun, 2016 care in third trime ster Z34.93 [facility] [address] [id number] [address] [place] [address] 21 Jun, 2016 care in third trime ster Z34.93 and 39 weeks gestation of Z3A.39 [facility] [address] [id number] [address] [place] [address] 20 Jun, 2016 [facility] [address] [id number] [address] [place] [address] 14 Jun, 2015 [facility] [address] [id number] [address] [place] [address] 14 Jun, 2016 care in third trime ster Z34.93 [facility] [address] [id number] [address] [place] [address] 07 Jun, 2016 [facility] [address] [id number] [address] [place] [address] 07 Jun, 2016 care in third trime ster Z34.93 [facility] [address] [id number] [address] [place] [address] May, [facility] [address] [id number] [address] [place] [address] May, care in third trime ster Z34.93 [facility] [address] [id number] [address] [place] [address] May, care in third trime ster Z34.93 [facility] [address] [id number] [address] [place] [address] May, [facility] [address] [id number] [address] [place] [address] May, [facility] [address] [id number] [address] [place] [address] May, [facility] [address] [id number] [address] [place] [address] May, [facility] [address] [id number] [address] [place] [address] May, Normal , first Z34. 00 [facility] [address] [id number] [address] [place] [address] May, [facility] [address] [id number] [address] [place] [address] Apr, [facility] [address] [id number] [address] [place] [address] Apr, Normal , first Z34. 00 and Encounter for immunization Z23 [facility] [address] [id number] [address] [place] [address] Apr, [facility] [address] [id number] [address] [place] [address] Apr, care, first pregnan cy in third trimester Z34.03 [facility] [address] [id number] [address] [place] [address] Mar, Normal , first Z34. 00 [facility] [address] [id number] [address] [place] [address] Mar, [facility] [address] [id number] [address] [place] [address] Mar, Normal , first Z34. 00 [facility] [address] [id number] [address] [place] [address] Mar, [facility] [address] [id number] [address] [place] [address] Mar, Normal in second t rimester Z34.92 [facility] [address] [id number] [address] [place] [address] February, 22 weeks gestation of pregna ncy Z3A.22 [facility] [address] [id number] [address] [place] [address] February, [facility] [address] [facility] [id number] [address] [place] [address] February, [facility] [address] [facility] [id number] [address] [place] [address] February, care, first pregnan cy in second trimester Z34.02 ; Fall, initial encounter W19.XXXA and 22 weeks [address]A.22 [facility] [address] [id number] [place] [address] February, [facility] [address] [id number] [place] [address] February, [place] [address] [facility] [id number] [address] [place] [address] Jan, care, first pregnan cy in first trimester Z34.01 [place] [address] [facility] [id number] [address] [place] [address] Dec, [place] [address] [facility] [id number] [address] [place] [address] Dec, with 14 completed weeks gestation Z3A.14 ; care, first in second trimester Z34.02 and Routine screening for STI (sexually transmitted infection) Z11.3 [place] [address] [facility] [id number] [address] [place] [address] Dec, care, first pregnan cy in first trimester Z34.01 ; with 12 completed weeks gestation Z3A.12 and Abdominal cramping R10.9 [place] [address] [facility] [id number] [address] [place] [address] Dec, Normal , first Z34. 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 and Needs flu shot Z23 [facility] [address] [place], [place] [id number] 57 23 Nov, 2015 Amenorrhea N91.2 [facility] [address] [facility] [id number] [address] [place] [address] Sep, IMMUNIZATIONS No Known Immunizations SOCIAL HISTORY Never Assessed REASON FOR VISIT hacking cough, sore throat [facility] VITAL SIGNS Height 63.25 in 2017-07-06 Weight 109.2 lbs 2017-07-06 Temperature 98.1 degrees Fahrenheit 2017-07-06 Heart Rate 76 bpm 2017-07-06 Respiratory Rate 20 2017-07-06 BMI 19.19 kg/m2 2017-07-06 Blood pressure systolic 120 mmHg 2017-07-06 Blood pressure diastolic 80 mmHg 2017-07-06 MEDICATIONS Medication Instructions Dosage Frequency Start Date End Date Duration S tatus Ortho-Cyclen (28) 0.25-35 MG-MCG Orally Once a day 1 tablet 24h May, 90 days Active Maxalt 5 MG Orally Once a day 1 tablet as needed one time 24h Active Promethazine-Codeine 6.25-10 MG/5ML Orally every 6 hrs 5 ml as need ed 6h Jun, Active PredniSONE 20 mg Orally Once a day 2 tablets 24h Jun, 25 Jun, 2017 05 days Active Amoxicillin 500 MG Orally every 12 hrs 1 capsule 12h Jun, 7 30 Jun, 2017 10 day(s) Active Amitriptyline HCl 10 MG Orally Once a day 1 tablet 24h Active RESULTS No Results PROCEDURES No Known [...]
--- OUTSIDE RECORDS SUMMARY | 2020-05-12 14:00 | XMS REPORT ---
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 Active 71477379 Problem Generalized anxiety disorder F41.1 A ctive 46445261 Problem Post depression F53 Active 77205381 ALLERGIES No Information ENCOUNTERS Encounter Location Date Diagnosis [place] [id number] [address] February, [facility] [address] [address] Dec, Encounter for IUD insertion Z30.430 and IUD (intrauterine device) in place Z97.5 [facility] [address] [address] Oct, Encounter for control pills maintenance Z30.41 [facility] [address] [address] Sep, Other viral agents as the ca use of diseases classified elsewhere B97.89 and Acute upper respiratory infection, unspecified J06.9 [facility] [address] [address] Sep, control counseling Z30 .09 [facility] [address] [place] [id number] [address] [place] [address] Jun, Pharyngitis due to other org anism J02.8 [facility] [address] [facility] [id number] [address] [place] [address] 08 Jun, 2017 Viral gastroenteritis A08.4 [facility] [address] [facility] [id number] [address] [place] [address] May, [facility] [address] [facility] [id number] [address] [place] [address] May, Encounter for control pills maintenance Z30.41 [facility] [address] [facility] [id number] [address] [place] [address] Jan, [facility] [address] [facility] [id number] [address] [place] [address] Jan, Generalized anxiety disorder F41.1 and Severe single current episode of major depressive disorder, without psychotic features F32.2 [facility] [address] [facility] [id number] [address] [place] [id number] 07 Sep, 2016 [facility] [address] [facility] [id number] [address] [place] [address] Aug, [facility] [address] [facility] [id number] [address] [place] [address] Aug, Post depression F53 a nd Encounter for Depo-Provera contraception Z30.42 [facility] [address] [facility] [id number] [address] [place] [address] Aug, [facility] [address] [facility] [id number] [address] [place] [address] Aug, [facility] [address] [facility] [id number] [address] [place] [phone] Aug, [facility] [address] [facility] [id number] [address] [place] [address] Aug, [facility] [address] [facility] [id number] [address] [place] [address] Aug, Post depression F53 [facility] [place] [id number] [place] [address] Aug, [facility] [address] [id number] [address] [place] [address] Aug, Generalized anxiety disorder F41.1 and depression F53 [facility] [address] [id number] [place] [address] Aug, [facility] [address] [id number] [address] [place] [address] Aug, depression F53 ; Generalized anxiety disorder F41.1 and Other mental disorders complicating the puerperium O99.345 [facility] [address] [id number] [address] [place] [address] Aug, [facility] [address] [id number] [address] [place] [address] Aug, Major depressive disorder, s wilfredo episode, unspecified F32.9 ; Other mental disorders complicating the puerperium O99.345 and Dysuria R30.0 [facility] [address] [id number] [address] [place] [address] Aug, [facility] [address] [id number] [address] [place] [address] Aug, [facility] [address] [id number] [address] [place] [address] Jul, Post depression F53 a nd Headache, unspecified headache type R51 [facility] [address] [id number] [address] [place] [address] Jul, [facility] [address] [id number] [place] [address] Jul, [facility] [address] [id number] [address] [place] [address] Jul, depression F53 [facility] [address] [id number] [address] [place] [address] Jul, Post depression F53 [facility] [address] [id number] [address] [place] [id number] Jul, [facility] [address] [id number] [place] [address] Jul, [facility] [address] [id number] [place] [address] Jul, [facility] [address] [id number] [address] [place] [address] 28 Jun, 2016 care in third trime ster Z34.93 [facility] [address] [id number] [address] [place] [address] 21 Jun, 2016 care in third trime ster Z34.93 and 39 weeks gestation of Z3A.39 [facility] [address] [id number] [address] [place] [address] 20 Jun, 2016 [facility] [address] [id number] [address] [place] [phone] 14 Jun, 2016 [facility] [address] [id number] [address] [place] [phone] 14 Jun, 2016 care in third trime ster Z34.93 [facility] [address] [id number] [address] [place] [phone] 07 Jun, 2016 [facility] [address] [id number] [address] [place] [phone] 07 Jun, 2016 care in third trime ster Z34.93 [facility] [address] [id number] [address] [place] [address] May, [facility] [address] [id number] [address] [place] [address] May, care in third trime ster Z34.93 [facility] [address] [id number] [address] [place] [address] May, care in third trime ster Z34.93 [facility] [address] [id number] [address] [place] [phone] May, [facility] [address] [id number] [address] [place] [address], [place] [address] May, [facility] [address] [id number] [address] [place] [address], [place] [address] May, [facility] [address] [id number] [address] [place] [address], [place] [address] May, [facility] [address] [id number] [address] [place] [address], [place] [address] May, Normal , first Z34. 00 [facility] [address] [id number] [address] [place] [address], [place] [address] May, [facility] [address] [id number] [address] [place] [address] Apr, [facility] [address] [id number] [address] [place] [address] Apr, Normal , first Z34. 00 and Encounter for immunization Z23 [facility] [address] [id number] [address] [place] [address] Apr, [facility] [address] [id number] [address] [place] [address] Apr, care, first pregnan cy in third trimester Z34.03 [facility] [address] [id number] [address] [place] [address] Mar, Normal , first Z34. 00 [facility] [address] [id number] [address] [place] [address] Mar, [facility] [address] [id number] [address] [place] [address] Mar, Normal , first Z34. 00 [facility] [address] [id number] [address] [place] [address] Mar, [facility] [address] [id number] [address] [place] [address] Mar, Normal in second t rimester Z34.92 [facility] [address] [id number] [address] [place] [address] February, 22 weeks gestation of pregna ncy Z3A.22 [facility] [address] [id number] [address] [place] [address] February, [place] [address] [id number] [address] [place] [phone] February, [place] [address] [id number] [address] [place] [address] February, care, first pregnan cy in second trimester Z34.02 ; Fall, initial encounter W19.XXXA and 22 weeks gestation of Z3A.22 [facility] [address] [id number] [place] [address] February, [facility] [address] [id number] [place] [address] February, [place] [address] [id number] [address] [place] [address] Jan, care, first pregnan cy in first trimester Z34.01 [place] [address] [facility] [id number] [address] [place] [phone] Dec, [place] [address] [id number] [address] [place] [phone] Dec, with 14 completed weeks gestation Z3A.14 ; care, first in second trimester Z34.02 and Routine screening for STI (sexually transmitted infection) Z11.3 [place] [address] [id number] [address] [place] [phone] Dec, care, first pregnan cy in first trimester Z34.01 ; with 12 completed weeks gestation Z3A.12 and Abdominal cramping R10.9 [place] [address] [id number] [address] [place] [phone] Dec, Normal , first Z34. 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
--- OUTSIDE RECORDS SUMMARY | 2020-05-12 14:01 | XMS REPORT | Continuity of Care Document ---
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 - 06/16/16 14:36 Strep Gp B Culture Negative Negative Bacterial urine culture - 06/22/16 17:55 URINE CULTURE RESULTS <10,000/ML NRG Complete blood count (CBC) with automate d white blood cell (WBC) differential - 07/02/16 14:38 Blood leukocytes automated count (number/volume) 10.8 10*3/uL 4.3-11.0 Blood erythrocytes automated count (number/volume) 3.60 10*6/uL 4.35-5.85 Venous blood hemoglobin measurement (mass/volume) 11.6 g/dL 11.5-16.0 Blood hematocrit (volume fraction) 34 % 35-52 Automated erythrocyte mean corpuscular volume 93 [ foz_us] 80-99 Automated erythrocyte mean corpuscular h emoglobin (mass per erythrocyte) 32 pg 25-34 Automated erythrocyte mean corpuscular h emoglobin concentration measurement (mass/volume) 35 g/dL 32-36 Automated erythrocyte distribution width ratio 12. 5 % 10.0- 14.5 Automated blood platelet count (count/volume) 236 10*3/uL 130-400 Automated blood platelet mean volume measurement 11.4 [foz_us] 7.4-10.4 Automated blood neutrophils/100 leukocytes 73 % 42-75 Automated blood lymphocytes/100 leukocytes 17 % 12-44 Blood monocytes/100 leukocytes 9 % 0-12 Automated blood eosinophils/100 leukocytes 1 % 0-10 Automated blood basophils/100 leukocytes 0 % 0-10 Blood neutrophils automated count (number/volume) 7.9 10*3 1.8-7.8 Blood lymphocytes automated count (number/volume) 1.9 10*3 1.0-4.0 Blood monocytes automated count (number/volume) 0. 9 10*3 0.0-1.0 Automated eosinophil count 0.1 10*3/uL 0 .0-0.3 Automated blood basophil count (count/volume) 0.0 10*3/uL 0.0-0.1 Complete urinalysis with reflex to cultu re - 07/02/16 15:10 Urine color determination YELLOW NRG Urine clarity determination CLEAR NR G Urine pH measurement by test strip 7 5-9 Specific gravity of urine by test strip 1.005 1.016-1.022 Urine protein assay by test strip, semi-quantitative NEGATIVE NEGATIVE Urine glucose detection by automated test strip NE GATIVE NEGATIVE Erythrocytes detection in urine sediment by light micr oscopy NEGATIVE NEGATIVE Urine ketones detection by automated test strip NE GATIVE NEGATIVE Urine nitrite detection by test strip NEGATIVE NEGATIVE Urine total bilirubin detection by test strip NEGA TIVE NEGATIVE Urine urobilinogen measurement by automated test strip (mass/volume) NORMAL NORMAL Urine leukocyte esterase detection by dipstick 2+ NEGATIVE Automated urine sediment erythrocyte cou nt by microscopy (number/high power field) NONE NRG Automated urine sediment leukocyte count by microscopy (number/high power field) [HPF] NRG Bacteria detection in urine sediment by light microsco py LARGE NRG Squamous epithelial cells detection in u rine sediment by light microscopy >50 NRG Crystals detection in urine sediment by light microsco py NONE NRG Casts detection in urine sediment by light microscopy NONE NRG Mucus detection in urine sediment by light microscopy NEGATIVE NRG Complete urinalysis with reflex to culture YES NRG Renal epithelial cells detection in urin e sediment by light microscopy 2-5 NRG Bacterial urine culture - 07/02/16 15:10 URINE CULTURE RESULTS <10,000/ML NRG Complete blood count (CBC) with automate d white blood cell (WBC) differential - 07/15/16 19:55 Blood leukocytes automated count (number/volume) 11.2 10*3/uL 4.3-11.0 Blood erythrocytes automated count (number/volume) 3.55 10*6/uL 4.35-5.85 Venous blood hemoglobin measurement (mass/volume) 11.5 g/dL 11.5-16.0 Blood hematocrit (volume fraction) 34 % 35-52 Automated erythrocyte mean corpuscular volume 94 [ foz_us] 80-99 Automated erythrocyte mean corpuscular h emoglobin (mass per erythrocyte) 32 pg 25-34 Automated erythrocyte mean corpuscular h emoglobin concentration measurement (mass/volume) 34 g/dL 32-36 Automated erythrocyte distribution width ratio 12. 6 % 10.0- 14.5 Automated blood platelet count (count/volume) 226 10*3/uL 130-400 Automated blood platelet mean volume measurement 11.7 [foz_us] 7.4-10.4 Automated blood neutrophils/100 leukocytes 76 % 42-75 Automated blood lymphocytes/100 leukocytes 16 % 12-44 Blood monocytes/100 leukocytes 7 % 0-12 Automated blood eosinophils/100 leukocytes 1 % 0-10 Automated blood basophils/100 leukocytes 0 % 0-10 Blood neutrophils automated count (number/volume) 8.5 10*3 1.8-7.8 Blood lymphocytes automated count (number/volume) 1.8 10*3 1.0-4.0 Blood monocytes automated count (number/volume) 0. 8 10*3 0.0-1.0 Automated eosinophil count 0.1 10*3/uL 0 .0-0.3 Automated blood basophil count (count/volume) 0.0 10*3/uL 0.0-0.1 Blood type T Indirect antibody screen pa yossi - 07/15/16 19:55 ABO+Rh group OP NRG Transfusion band number [id number] NRG Blood group antibody screen NEGATIVE NR G Urine drug screening test - 07/15/16 20: 50 Urine phencyclidine detection by screening method NEGATIVE NEGATIVE Urine benzodiazepines detection by screening method NEGATIVE NEGATIVE Urine cocaine detection NEGATIVE NEGATI VE Urine amphetamines detection by screening method N EGATIVE NEGATIVE Urine methamphetamine detection by screening method NEGATIVE NEGATIVE Urine cannabinoids detection by screening method N EGATIVE NEGATIVE Urine opiates detection by screening method NEGATI VE NEGATIVE Urine barbiturates detection NEGATIVE N EGATIVE Screening urine tricyclic antidepressants detection NEGATIVE NEGATIVE Urine methadone detection by screening method NEGA TIVE NEGATIVE Urine oxycodone detection NEGATIVE NEGA TIVE Urine propoxyphene detection NEGATIVE N EGATIVE Urine buprenophrine screen NEGATIVE NEG ATIVE Complete urinalysis with reflex to cultu re - 07/15/16 20:50 Urine color determination YELLOW NRG Urine clarity determination CLEAR NR G Urine pH measurement by test strip 6.5 5-9 Specific gravity of urine by test strip 1.020 1.016-1.022 Urine protein assay by test strip, semi-quantitative 2+ NEGATIVE Urine glucose detection by automated test strip NE GATIVE NEGATIVE Erythrocytes detection in urine sediment by light micr oscopy NEGATIVE NEGATIVE Urine ketones detection by automated test strip NE GATIVE NEGATIVE Urine nitrite detection by test strip NEGATIVE NEGATIVE Urine total bilirubin detection by test strip NEGA TIVE NEGATIVE Urine urobilinogen measurement by automated test strip (mass/volume) NORMAL NORMAL Urine leukocyte esterase detection by dipstick 1+ NEGATIVE Automated urine sediment erythrocyte cou nt by microscopy (number/high power field) NONE NRG Automated urine sediment leukocyte count by microscopy (number/high power field) [HPF] NRG Bacteria detection in urine sediment by light microsco py MODERATE NRG Squamous epithelial cells detection in u rine sediment by light microscopy 5-10 NRG Crystals detection in urine sediment by light microsco py PRESENT NRG Casts detection in urine sediment by light microscopy NONE NRG Mucus detection in urine sediment by light microscopy MODERATE NRG Complete urinalysis with reflex to culture YES NRG Calcium oxalate crystals detection in ur ine sediment by light microscopy MODERATE NRG Bacterial urine culture - 07/15/16 20:50 URINE CULTURE RESULTS <10,000/ML NRG Bacteria identification in genital speci men by aerobe culture - 07/16/16 17:50 FREE TEXT EXTERNAL FROM ENRICHMENT BROTH NRG QUANTITY OF GROWTH Abundant Growth NRG Bacteria identification in genital specimen by aerobe culture [id number] NRG Bacteria identification in isolate by an aerobe culture - 07/16/16 20:10 Bacteria identification in isolate by anaerobe culture NOANA NRG Gram stain microscopy - 07/16/16 20:10 GRAM STAIN RESULT FEW WBC'S, NO BACTERIA OBSERVED NRG Bacteria identification in wound by cult ure - 07/16/16 20:10 Bacteria identification in wound by culture [id number] NRG QUANTITY OF GROWTH Scant Growth NRG Complete blood count (CBC) with automate d white blood cell (WBC) differential - 07/17/16 05:10 Blood leukocytes automated count (number/volume) 15.0 10*3/uL 4.3-11.0 Blood erythrocytes automated count (number/volume) 2.35 10*6/uL 4.35-5.85 Venous blood hemoglobin measurement (mass/volume) 7.5 g/dL 11.5-16.0 Blood hematocrit (volume fraction) 23 % 35-52 Automated erythrocyte mean corpuscular volume 96 [ foz_us] 80-99 Automated erythrocyte mean corpuscular h emoglobin (mass per erythrocyte) 32 pg 25-34 Automated erythrocyte mean corpuscular h emoglobin concentration measurement (mass/volume) 33 g/dL 32-36 Automated erythrocyte distribution width ratio 12. 5 % 10.0- 14.5 Automated blood platelet count (count/volume) 167 10*3/uL 130-400 Automated blood platelet mean volume measurement 11.0 [foz_us] 7.4-10.4 Automated blood neutrophils/100 leukocytes 82 % 42-75 Automated blood lymphocytes/100 leukocytes 12 % 12-44 Blood monocytes/100 leukocytes 6 % 0-12 Automated blood eosinophils/100 leukocytes 0 % 0-10 Automated blood basophils/100 leukocytes 0 % 0-10 Blood neutrophils automated count (number/volume) 12.2 10*3 1.8-7.8 Blood lymphocytes automated count (number/volume) 1.7 10*3 1.0-4.0 Blood monocytes automated count (number/volume) 1. 0 10*3 0.0-1.0 Automated eosinophil count 0.1 10*3/uL 0 .0-0.3 Automated blood basophil count (count/volume) 0.0 10*3/uL 0.0-0.1 Complete blood count (CBC) with automate d white blood cell (WBC) differential - 07/20/16 23:09 Blood leukocytes automated count (number/volume) 10.3 10*3/uL 4.3-11.0 Blood erythrocytes automated count (number/volume) 1.90 10*6/uL 4.35-5.85 Venous blood hemoglobin measurement (mass/volume) 6.0 g/dL 11.5-16.0 Blood hematocrit (volume fraction) 19 % 35-52 Automated erythrocyte mean corpuscular volume 97 [ foz_us] 80-99 Automated erythrocyte mean corpuscular h emoglobin (mass per erythrocyte) 32 pg 25-34 Automated erythrocyte mean corpuscular h emoglobin concentration measurement (mass/volume) 32 g/dL 32-36 Automated erythrocyte distribution width ratio 12. 4 % 10.0- 14.5 Automated blood platelet count (count/volume) 249 10*3/uL 130-400 Automated blood platelet mean volume measurement 10.0 [foz_us] 7.4-10.4 Automated blood neutrophils/100 leukocytes 79 % 42-75 Automated blood lymphocytes/100 leukocytes 14 % 12-44 Blood monocytes/100 leukocytes 5 % 0-12 Automated blood eosinophils/100 leukocytes 2 % 0-10 Automated blood basophils/100 leukocytes 0 % 0-10 Blood neutrophils automated count (number/volume) 8.2 10*3 1.8-7.8 Blood lymphocytes automated count (number/volume) 1.4 10*3 1.0-4.0 Blood monocytes automated count (number/volume) 0. 5 10*3 0.0-1.0 Automated eosinophil count 0.2 10*3/uL 0 .0-0.3 Automated blood basophil count (count/volume) 0.0 10*3/uL 0.0-0.1 Bacterial blood culture - 07/20/16 23:09 FREE TEXT EXTERNAL NOT GROUP D STREP/NOT STREP BOV IS NRG QUANTITY OF GROWTH Isolated NRG Bacterial blood culture [id number] NRG Bacterial blood culture - 07/20/16 23:32 Bacterial blood culture NG NRG Gram stain microscopy - 07/21/16 00:28 GRAM STAIN RESULT NO WBC'S OR BACTERIA OBSERVED NRG Bacteria identification in wound by cult ure - 07/21/16 00:28 Bacteria identification in wound by culture [id number] NRG QUANTITY OF GROWTH Scant Growth NRG Complete blood count (CBC) with automate d white blood cell (WBC) differential - 07/22/16 19:10 Blood leukocytes automated count (number/volume) 10.4 10*3/uL 4.3-11.0 Blood erythrocytes automated count (number/volume) 2.09 10*6/uL 4.35-5.85 Venous blood hemoglobin measurement (mass/volume) 6.6 g/dL 11.5-16.0 Blood hematocrit (volume fraction) 20 % 35-52 Automated erythrocyte mean corpuscular volume 97 [ foz_us] 80-99 Automated erythrocyte mean corpuscular h emoglobin (mass per erythrocyte) 32 pg 25-34 Automated erythrocyte mean corpuscular h emoglobin concentration measurement (mass/volume) 33 g/dL 32-36 Automated erythrocyte distribution width ratio 12. 1 % 10.0- 14.5 Automated blood platelet count (count/volume) 341 10*3/uL 130-400 Automated blood platelet mean volume measurement 9.7 [foz_us] 7.4-10.4 Automated blood neutrophils/100 leukocytes 83 % 42-75 Automated blood lymphocytes/100 leukocytes 10 % 12-44 Blood monocytes/100 leukocytes 6 % 0-12 Automated blood eosinophils/100 leukocytes 2 % 0-10 Automated blood basophils/100 leukocytes 0 % 0-10 Blood neutrophils automated count (number/volume) 8.6 10*3 1.8-7.8 Blood lymphocytes automated count (number/volume) 1.0 10*3 1.0-4.0 Blood monocytes automated count (number/volume) 0. 6 10*3 0.0-1.0 Automated eosinophil count 0.2 10*3/uL 0 .0-0.3 Automated blood basophil count (count/volume) 0.0 10*3/uL 0.0-0.1 Blood lactic acid measurement (moles/vol ume) - 07/22/16 19:10 Blood lactic acid measurement (moles/volume) 1.0 m mol/L 0.5- 2.0 Comprehensive metabolic panel - 07/22/16 19:10 Serum or plasma sodium measurement (moles/volume) 138 mmol/L 135-145 Serum or plasma potassium measurement (moles/volume) 3.6 mmol/L 3.6-5.0 Serum or plasma chloride measurement (moles/volume) 108 mmol/L 98-107 Carbon dioxide 17 mmol/L 21-32 Serum or plasma anion gap determination (moles/volume) 13 mmol/L 5-14 Serum or plasma urea nitrogen measurement (mass/volume ) 9 mg/dL 7-18 Serum or plasma creatinine measurement (mass/volume) 0.67 mg/dL 0.60-1.30 Serum or plasma urea nitrogen/creatinine mass ratio 13 NRG Serum or plasma creatinine measurement w ith calculation of estimated glomerular filtration rate > NRG Serum or plasma glucose measurement (mass/volume) 105 mg/dL 70-105 Serum or plasma calcium measurement (mass/volume) 8.8 mg/dL 8.5-10.1 Serum or plasma total bilirubin measurement (mass/volu me) 0.6 mg/dL 0.1-1.0 Serum or plasma alkaline phosphatase endy surement (enzymatic activity/volume) 101 U/L 40-136 Serum or plasma aspartate aminotransfera se measurement (enzymatic activity/volume) 15 U/L 5-34 Serum or plasma alanine aminotransferase measurement (enzymatic activity/volume) 15 U/L 0-55 Serum or plasma protein measurement (mass/volume) 5.8 g/dL 6.4-8.2 Serum or plasma albumin measurement (mass/volume) 3.0 g/dL 3.2-4.5 Serum or plasma C reactive protein measu rement (mass/volume) - 07/22/16 19:10 Serum or plasma C reactive protein measurement (mass/v olume) 23.73 mg/dL 0.00-0.50 Bacterial blood culture - 07/22/16 19:10 Bacterial blood culture NG NRG Complete urinalysis with reflex to cultu re - 07/22/16 19:15 Urine color determination YELLOW NRG Urine clarity determination CLEAR NR G Urine pH measurement by test strip 7 5-9 Specific gravity of urine by test strip 1.005 1.016-1.022 Urine protein assay by test strip, semi-quantitative NEGATIVE NEGATIVE Urine glucose detection by automated test strip NE GATIVE NEGATIVE Erythrocytes detection in urine sediment by light micr oscopy 5+ NEGATIVE Urine ketones detection by automated test strip 2+ NEGATIVE Urine nitrite detection by test strip NEGATIVE NEGATIVE Urine total bilirubin detection by test strip NEGA TIVE NEGATIVE Urine urobilinogen measurement by automated test strip (mass/volume) NORMAL NORMAL Urine leukocyte esterase detection by dipstick 2+ NEGATIVE Automated urine sediment erythrocyte cou nt by microscopy (number/high power field) [HPF] NRG Automated urine sediment leukocyte count by microscopy (number/high power field) [HPF] NRG Bacteria detection in urine sediment by light microsco py TRACE NRG Squamous epithelial cells detection in u rine sediment by light microscopy 0-2 NRG Crystals detection in urine sediment by light microsco py NONE NRG Casts detection in urine sediment by light microscopy NONE NRG Mucus detection in urine sediment by light microscopy NEGATIVE NRG Complete urinalysis with reflex to culture YES NRG Bacterial urine culture - 07/22/16 19:15 Bacterial urine culture NG NRG Bacterial blood culture - 07/22/16 19:15 Bacterial blood culture NG NRG RED CELLS LEUKO REDUCED AS1 - 07/22/16 2 1:30 RED CELLS LEUKO REDUCED AS1 T RANSFUSED 07/23/16 0212 NRG Blood type T Indirect antibody screen pa yossi - 07/22/16 21:30 ABO+Rh group OP NRG Transfusion band number [id number] NRG Blood group antibody screen NEGATIVE NR G Complete blood count (CBC) with automate d white blood cell (WBC) differential - 07/23/16 06:55 Blood leukocytes automated count (number/volume) 11.0 10*3/uL 4.3-11.0 Blood erythrocytes automated count (number/volume) 2.41 10*6/uL 4.35-5.85 Venous blood hemoglobin measurement (mass/volume) 7.6 g/dL 11.5-16.0 Blood hematocrit (volume fraction) 23 % 35-52 Automated erythrocyte mean corpuscular volume 94 [ foz_us] 80-99 Automated erythrocyte mean corpuscular h emoglobin (mass per erythrocyte) 32 pg 25-34 Automated erythrocyte mean corpuscular h emoglobin concentration measurement (mass/volume) 34 g/dL 32-36 Automated erythrocyte distribution width ratio 13. 0 % 10.0- 14.5 Automated blood platelet count (count/volume) 281 10*3/uL 130-400 Automated blood platelet mean volume measurement 9.8 [foz_us] 7.4-10.4 Automated blood neutrophils/100 leukocytes 78 % 42-75 Automated blood lymphocytes/100 leukocytes 12 % 12-44 Blood monocytes/100 leukocytes 8 % 0-12 Automated blood eosinophils/100 leukocytes 2 % 0-10 Automated blood basophils/100 leukocytes 0 % 0-10 Blood neutrophils automated count (number/volume) 8.6 10*3 1.8-7.8 Blood lymphocytes automated count (number/volume) 1.3 10*3 1.0-4.0 Blood monocytes automated count (number/volume) 0. 9 10*3 0.0-1.0 Automated eosinophil count 0.2 10*3/uL 0 .0-0.3 Automated blood basophil count (count/volume) 0.0 10*3/uL 0.0-0.1 Comprehensive metabolic panel - 07/23/16 06:55 Serum or plasma sodium measurement (moles/volume) 136 mmol/L 135-145 Serum or plasma potassium measurement (moles/volume) 3.6 mmol/L 3.6-5.0 Serum or plasma chloride measurement (moles/volume) 111 mmol/L 98-107 Carbon dioxide 16 mmol/L 21-32 Serum or plasma anion gap determination (moles/volume) 9 mmol/L 5-14 Serum or plasma urea nitrogen measurement (mass/volume ) 7 mg/dL 7-18 Serum or plasma creatinine measurement (mass/volume) 0.54 mg/dL 0.60-1.30 Serum or plasma urea nitrogen/creatinine mass ratio 13 NRG Serum or plasma creatinine measurement w ith calculation of estimated glomerular filtration rate > NRG Serum or plasma glucose measurement (mass/volume) 91 mg/dL 70-105 Serum or plasma calcium measurement (mass/volume) 7.9 mg/dL 8.5-10.1 Serum or plasma total bilirubin measurement (mass/volu me) 0.4 mg/dL 0.1-1.0 Serum or plasma alkaline phosphatase endy surement (enzymatic activity/volume) 83 U/L 40-136 Serum or plasma aspartate aminotransfera se measurement (enzymatic activity/volume) 12 U/L 5-34 Serum or plasma alanine aminotransferase measurement (enzymatic activity/volume) 12 U/L 0-55 Serum or plasma protein measurement (mass/volume) 5.0 g/dL 6.4-8.2 Serum or plasma albumin measurement (mass/volume) 2.5 g/dL 3.2-4.5 Blood lactic acid measurement (moles/vol ume) - 07/23/16 14:50 Blood lactic acid measurement (moles/volume) 1.0 m mol/L 0.5- 2.0 Bacterial blood culture - 07/23/16 14:50 Bacterial blood culture NG NRG Bacterial blood culture - 07/23/16 14:50 Bacterial blood culture NG NRG Methicillin resistant Staphylococcus aur eus (MRSA) screening culture - 07/23/16 16:30 Methicillin resistant Staphylococcus aureus (MRSA) scr eening culture NEG NRG Complete blood count (CBC) with automate d white blood cell (WBC) differential - 07/24/16 07:20 Blood leukocytes automated count (number/volume) 12.5 10*3/uL 4.3-11.0 Blood erythrocytes automated count (number/volume) 2.80 10*6/uL 4.35-5.85 Venous blood hemoglobin measurement (mass/volume) 8.6 g/dL 11.5-16.0 Blood hematocrit (volume fraction) 26 % 35-52 Automated erythrocyte mean corpuscular volume 92 [ foz_us] 80-99 Automated erythrocyte mean corpuscular h emoglobin (mass per erythrocyte) 31 pg 25-34 Automated erythrocyte mean corpuscular h emoglobin concentration measurement (mass/volume) 33 g/dL 32-36 Automated erythrocyte distribution width ratio 14. 3 % 10.0- 14.5 Automated blood platelet count (count/volume) 380 10*3/uL 130-400 Automated blood platelet mean volume measurement 10.0 [foz_us] 7.4-10.4 Automated blood neutrophils/100 leukocytes 73 % 42-75 Automated blood lymphocytes/100 leukocytes 17 % 12-44 Blood monocytes/100 leukocytes 8 % 0-12 Automated blood eosinophils/100 leukocytes 1 % 0-10 Automated blood basophils/100 leukocytes 1 % 0-10 Blood neutrophils automated count (number/volume) 9.1 10*3 1.8-7.8 Blood lymphocytes automated count (number/volume) 2.1 10*3 1.0-4.0 Blood monocytes automated count (number/volume) 1. 1 10*3 0.0-1.0 Automated eosinophil count 0.2 10*3/uL 0 .0-0.3 Automated blood basophil count (count/volume) 0.1 10*3/uL 0.0-0.1 Complete blood count (CBC) with automate d white blood cell (WBC) differential - 07/24/16 07:20 Blood leukocytes automated count (number/volume) 12.5 10*3/uL 4.3-11.0 Blood erythrocytes automated count (number/volume) 2.80 10*6/uL 4.35-5.85 Venous blood hemoglobin measurement (mass/volume) 8.6 g/dL 11.5-16.0 Blood hematocrit (volume fraction) 26 % 35-52 Automated erythrocyte mean corpuscular volume 92 [ foz_us] 80-99 Automated erythrocyte mean corpuscular h emoglobin (mass per erythrocyte) 31 pg 25-34 Automated erythrocyte mean corpuscular h emoglobin concentration measurement (mass/volume) 33 g/dL 32-36 Automated erythrocyte distribution width ratio 14. 3 % 10.0- 14.5 Automated blood platelet count (count/volume) 380 10*3/uL 130-400 Automated blood platelet mean volume measurement 10.0 [foz_us] 7.4-10.4 Automated blood neutrophils/100 leukocytes 73 % 42-75 Automated blood lymphocytes/100 leukocytes 17 % 12-44 Blood monocytes/100 leukocytes 8 % 0-12 Automated blood eosinophils/100 leukocytes 1 % 0-10 Automated blood basophils/100 leukocytes 1 % 0-10 Blood neutrophils automated count (number/volume) 9.1 10*3 1.8-7.8 Blood lymphocytes automated count (number/volume) 2.1 10*3 1.0-4.0 Blood monocytes automated count (number/volume) 1. 1 10*3 0.0-1.0 Automated eosinophil count 0.2 10*3/uL 0 .0-0.3 Automated blood basophil count (count/volume) 0.1 10*3/uL 0.0-0.1 Complete urinalysis with reflex to cultu re - 09/27/16 07:30 Urine color determination YELLOW NRG Urine clarity determination CLEAR NR G Urine pH measurement by test strip 6 5-9 Specific gravity of urine by test strip 1.020 1.016-1.022 Urine protein assay by test strip, semi-quantitative 2+ NEGATIVE Urine glucose detection by automated test strip NE GATIVE NEGATIVE Erythrocytes detection in urine sediment by light micr oscopy 4+ NEGATIVE Urine ketones detection by automated test strip 1+ NEGATIVE Urine nitrite detection by test strip NEGATIVE NEGATIVE Urine total bilirubin detection by test strip NEGA TIVE NEGATIVE Urine urobilinogen measurement by automated test strip (mass/volume) NORMAL NORMAL Urine leukocyte esterase detection by dipstick 3+ NEGATIVE Automated urine sediment erythrocyte cou nt by microscopy (number/high power field) [HPF] NRG Automated urine sediment leukocyte count by microscopy (number/high power field) [HPF] NRG Bacteria detection in urine sediment by light microsco py TRACE NRG Squamous epithelial cells detection in u rine sediment by light microscopy 10-25 NRG Crystals detection in urine sediment by light microsco py NONE NRG Casts detection in urine sediment by light microscopy NONE NRG Mucus detection in urine sediment by light microscopy MODERATE NRG Complete urinalysis with reflex to culture YES NRG Bacterial urine culture - 09/27/16 07:30 Bacterial urine culture [id number] NRG COLONY COUNT <10,000 NRG FREE TEXT ENTRY 2 MIXED GRAM POSITIVE ROXANN NRG FREE TEXT ENTRY 3 10,000-100,000/ML NRG Complete blood count (CBC) with automate d white blood cell (WBC) differential - 09/27/16 07:55 Blood leukocytes automated count (number/volume) 8.4 10*3/uL 4.3-11.0 Blood erythrocytes automated count (number/volume) 5.02 10*6/uL 4.35-5.85 Venous blood hemoglobin measurement (mass/volume) 14.8 g/dL 11.5-16.0 Blood hematocrit (volume fraction) 44 % 35-52 Automated erythrocyte mean corpuscular volume 88 [ foz_us] 80-99 Automated erythrocyte mean corpuscular h emoglobin (mass per erythrocyte) 30 pg 25-34 Automated erythrocyte mean corpuscular h emoglobin concentration measurement (mass/volume) 33 g/dL 32-36 Automated erythrocyte distribution width ratio 14. 1 % 10.0- 14.5 Automated blood platelet count (count/volume) 298 10*3/uL 130-400 Automated blood platelet mean volume measurement 11.1 [foz_us] 7.4-10.4 Automated blood neutrophils/100 leukocytes 56 % 42-75 Automated blood lymphocytes/100 leukocytes 35 % 12-44 Blood monocytes/100 leukocytes 6 % 0-12 Automated blood eosinophils/100 leukocytes 3 % 0-10 Automated blood basophils/100 leukocytes 1 % 0-10 Blood neutrophils automated count (number/volume) 4.7 10*3 1.8-7.8 Blood lymphocytes automated count (number/volume) 2.9 10*3 1.0-4.0 Blood monocytes automated count (number/volume) 0. 5 10*3 0.0-1.0 Automated eosinophil count 0.3 10*3/uL 0 .0-0.3 Automated blood basophil count (count/volume) 0.1 10*3/uL 0.0-0.1 Comprehensive metabolic panel - 09/27/16 07:55 Serum or plasma sodium measurement (moles/volume) 141 mmol/L 135-145 Serum or plasma potassium measurement (moles/volume) 3.7 mmol/L 3.6-5.0 Serum or plasma chloride measurement (moles/volume) 108 mmol/L 98-107 Carbon dioxide 20 mmol/L 21-32 Serum or plasma anion gap determination (moles/volume) 13 mmol/L 5-14 Serum or plasma urea nitrogen measurement (mass/volume ) 8 mg/dL 7-18 Serum or plasma creatinine measurement (mass/volume) 0.79 mg/dL 0.60-1.30 Serum or plasma urea nitrogen/creatinine mass ratio 10 NRG Serum or plasma creatinine measurement w ith calculation of estimated glomerular filtration rate > NRG Serum or plasma glucose measurement (mass/volume) 93 mg/dL 70-105 Serum or plasma calcium measurement (mass/volume) 9.7 mg/dL 8.5-10.1 Serum or plasma total bilirubin measurement (mass/volu me) 0.6 mg/dL 0.1-1.0 Serum or plasma alkaline phosphatase endy surement (enzymatic activity/volume) 78 U/L 40-136 Serum or plasma aspartate aminotransfera se measurement (enzymatic activity/volume) 16 U/L 5-34 Serum or plasma alanine aminotransferase measurement (enzymatic activity/volume) 16 U/L 0-55 Serum or plasma protein measurement (mass/volume) 7.7 g/dL 6.4-8.2 Serum or plasma albumin measurement (mass/volume) 5.1 g/dL 3.2-4.5 Serum or plasma amylase measurement (enz ymatic activity/volume) - 09/27/16 07:55 Serum or plasma amylase measurement (enzymatic activit y/volume) 24 U/L 25-125 Lipase - 09/27/16 07:55 Lipase 19 U/L 8-78 Complete blood count (CBC) with automate d white blood cell (WBC) differential - 01/03/17 21:52 Blood leukocytes automated count (number/volume) 7.7 10*3/uL 4.3-11.0 Blood erythrocytes automated count (number/volume) 4.17 10*6/uL 4.35-5.85 Venous blood hemoglobin measurement (mass/volume) 12.8 g/dL 11.5-16.0 Blood hematocrit (volume fraction) 37 % 35-52 Automated erythrocyte mean corpuscular volume 89 [ foz_us] 80-99 Automated erythrocyte mean corpuscular h emoglobin (mass per erythrocyte) 31 pg 25-34 Automated erythrocyte mean corpuscular h emoglobin concentration measurement (mass/volume) 34 g/dL 32-36 Automated erythrocyte distribution width ratio 13. 7 % 10.0- 14.5 Automated blood platelet count (count/volume) 233 10*3/uL 130-400 Automated blood platelet mean volume measurement 10.9 [foz_us] 7.4-10.4 Automated blood neutrophils/100 leukocytes 52 % 42-75 Automated blood lymphocytes/100 leukocytes 39 % 12-44 Blood monocytes/100 leukocytes 7 % 0-12 Automated blood eosinophils/100 leukocytes 3 % 0-10 Automated blood basophils/100 leukocytes 0 % 0-10 Blood neutrophils automated count (number/volume) 4.0 10*3 1.8-7.8 Blood lymphocytes automated count (number/volume) 3.0 10*3 1.0-4.0 Blood monocytes automated count (number/volume) 0. 5 10*3 0.0-1.0 Automated eosinophil count 0.2 10*3/uL 0 .0-0.3 Automated blood basophil count (count/volume) 0.0 10*3/uL 0.0-0.1 PT panel in platelet poor plasma by coag ulation assay - 01/03/17 21:52 Prothrombin time (PT) in platelet poor plasma by coagu lation assay 13.1 s 12.2-14.7 INR in platelet poor plasma or blood by coagulation as say 1.0 0.8-1.4 Activated partial thromboplastin time (a PTT) in platelet poor plasma bycoagulation assay - 01/03/17 21:52 Activated partial thromboplastin time (a PTT) in platelet poor plasma bycoagulation assay 33 s 24-35 Complete urinalysis with reflex to cultu re - 01/03/17 21:52 Urine color determination RED NRG Urine clarity determination BLOODY NR G Urine pH measurement by test strip 5 5-9 Specific gravity of urine by test strip 1.025 1.016-1.022 Urine protein assay by test strip, semi-quantitative 3+ NEGATIVE Urine glucose detection by automated test strip NE GATIVE NEGATIVE Erythrocytes detection in urine sediment by light micr oscopy 5+ NEGATIVE Urine ketones detection by automated test strip 1+ NEGATIVE Urine nitrite detection by test strip NEGATIVE NEGATIVE Urine total bilirubin detection by test strip NEGA TIVE NEGATIVE Urine urobilinogen measurement by automated test strip (mass/volume) NORMAL NORMAL Urine leukocyte esterase detection by dipstick 2+ NEGATIVE Automated urine sediment erythrocyte cou nt by microscopy (number/high power field) TNTC NRG Automated urine sediment leukocyte count by microscopy (number/high power field) [HPF] NRG Bacteria detection in urine sediment by light microsco py FEW NRG Crystals detection in urine sediment by light microsco py NONE NRG Casts detection in urine sediment by light microscopy NONE NRG Mucus detection in urine sediment by light microscopy NEGATIVE NRG Complete urinalysis with reflex to culture YES NRG Comprehensive metabolic panel - 01/03/17 21:52 Serum or plasma sodium measurement (moles/volume) 143 mmol/L 135-145 Serum or plasma potassium measurement (moles/volume) 3.5 mmol/L 3.6-5.0 Serum or plasma chloride measurement (moles/volume) 110 mmol/L 98-107 Carbon dioxide 22 mmol/L 21-32 Serum or plasma anion gap determination (moles/volume) 11 mmol/L 5-14 Serum or plasma urea nitrogen measurement (mass/volume ) 12 mg/dL 7-18 Serum or plasma creatinine measurement (mass/volume) 0.80 mg/dL 0.60-1.30 Serum or plasma urea nitrogen/creatinine mass ratio 15 NRG Serum or plasma creatinine measurement w ith calculation of estimated glomerular filtration rate > NRG Serum or plasma glucose measurement (mass/volume) 106 mg/dL 70-105 Serum or plasma calcium measurement (mass/volume) 9.6 mg/dL 8.5-10.1 Serum or plasma total bilirubin measurement (mass/volu me) 0.5 mg/dL 0.1-1.0 Serum or plasma alkaline phosphatase endy surement (enzymatic activity/volume) 66 U/L 40-136 Serum or plasma aspartate aminotransfera se measurement (enzymatic activity/volume) 14 U/L 5-34 Serum or plasma alanine aminotransferase measurement (enzymatic activity/volume) 17 U/L 0-55 Serum or plasma protein measurement (mass/volume) 7.0 g/dL 6.4-8.2 Serum or plasma albumin measurement (mass/volume) 4.8 g/dL 3.2-4.5 Serum or plasma thyrotropin measurement by detection limit <=0.05 miu/l (units/volume) - 01/03/17 21:52 Serum or plasma thyrotropin measurement by detection limit <=0.05 miu/l (units/volume) 1.96 u[iU]/mL 0.35-4.94 Bacterial urine culture - 01/03/17 21:52 Bacterial urine culture FOOTNOTE NRG Bacteria identification in genital speci men by aerobe culture - 01/03/17 23:17 FREE TEXT EXTERNAL PLUS NORMAL ROXANN NR G QUANTITY OF GROWTH Moderate Growth NRG Bacteria identification in genital specimen by aerobe culture [id number] NRG Microscopic examination by wet preparati on - 01/03/17 23:17 WET PREP RESULTS 23:30 BY BD NRG Neisseria gonorrhoeae DNA detection by p robe and signal amplification method - 01/03/17 23:17 Gonorrhea amp DNA-urine TNP NRG Chlamydia trachomatis DNA detection by p robe and signal amplification method - 01/03/17 23:17 Chlamydia trachomatis DNA detection by p robe and target amplification method TNP NRG Complete blood count (CBC) with automate d white blood cell (WBC) differential - 06/15/17 19:40 Blood leukocytes automated count (number/volume) 7.7 10*3/uL 4.3-11.0 Blood erythrocytes automated count (number/volume) 4.75 10*6/uL 4.35-5.85 Venous blood hemoglobin measurement (mass/volume) 14.6 g/dL 11.5-16.0 Blood hematocrit (volume fraction) 44 % 35-52 Automated erythrocyte mean corpuscular volume 93 [ foz_us] 80-99 Automated erythrocyte mean corpuscular h emoglobin (mass per erythrocyte) 31 pg 25-34 Automated erythrocyte mean corpuscular h emoglobin concentration measurement (mass/volume) 33 g/dL 32-36 Automated erythrocyte distribution width ratio 13. 1 % 10.0- 14.5 Automated blood platelet count (count/volume) 257 10*3/uL 130-400 Automated blood platelet mean volume measurement 11.3 [foz_us] 7.4-10.4 Automated blood neutrophils/100 leukocytes 46 % 42-75 Automated blood lymphocytes/100 leukocytes 44 % 12-44 Blood monocytes/100 leukocytes 6 % 0-12 Automated blood eosinophils/100 leukocytes 3 % 0-10 Automated blood basophils/100 leukocytes 1 % 0-10 Blood neutrophils automated count (number/volume) 3.5 10*3 1.8-7.8 Blood lymphocytes automated count (number/volume) 3.4 10*3 1.0-4.0 Blood monocytes automated count (number/volume) 0. 4 10*3 0.0-1.0 Automated eosinophil count 0.2 10*3/uL 0 .0-0.3 Automated blood basophil count (count/volume) 0.1 10*3/uL 0.0-0.1 Serum heterophile antibody titer - 06/15 19:40 Serum heterophile antibody titer NEGATIVE NEGATIVE Serum or plasma choriogonadotropin (preg concha test) detection - 06/15/17 19:40 Serum or plasma choriogonadotropin ( test) de tection NEGATIVE NEGATIVE Comprehensive metabolic panel - 06/15/17 19:40 Serum or plasma sodium measurement (moles/volume) 143 mmol/L 135-145 Serum or plasma potassium measurement (moles/volume) 3.9 mmol/L 3.6-5.0 Serum or plasma chloride measurement (moles/volume) 103 mmol/L 98-107 Carbon dioxide 28 mmol/L 21-32 Serum or plasma anion gap determination (moles/volume) 12 mmol/L 5-14 Serum or plasma urea nitrogen measurement (mass/volume ) 10 mg/dL 7-18 Serum or plasma creatinine measurement (mass/volume) 0.72 mg/dL 0.60-1.30 Serum or plasma urea nitrogen/creatinine mass ratio 14 NRG Serum or plasma creatinine measurement w ith calculation of estimated glomerular filtration rate > NRG Serum or plasma glucose measurement (mass/volume) 87 mg/dL 70-105 Serum or plasma calcium measurement (mass/volume) 10.3 mg/dL 8.5-10.1 Serum or plasma total bilirubin measurement (mass/volu me) 0.6 mg/dL 0.1-1.0 Serum or plasma alkaline phosphatase endy surement (enzymatic activity/volume) 69 U/L 40-136 Serum or plasma aspartate aminotransfera se measurement (enzymatic activity/volume) 16 U/L 5-34 Serum or plasma alanine aminotransferase measurement (enzymatic activity/volume) 14 U/L 0-55 Serum or plasma protein measurement (mass/volume) 7.6 g/dL 6.4-8.2 Serum or plasma albumin measurement (mass/volume) 5.0 g/dL 3.2-4.5 Serum or plasma thyrotropin measurement by detection limit <=0.05 miu/l (units/volume) - 06/15/17 19:40 Serum or plasma thyrotropin measurement by detection limit <=0.05 miu/l (units/volume) 1.29 u[iU]/mL 0.35-4.94 Complete blood count (CBC) with automate d white blood cell (WBC) differential - 01/14/18 18:10 Blood leukocytes automated count (number/volume) 13.1 10*3/uL 4.3-11.0 Blood erythrocytes automated count (number/volume) 4.11 10*6/uL 4.35-5.85 Venous blood hemoglobin measurement (mass/volume) 13.1 g/dL 11.5-16.0 Blood hematocrit (volume fraction) 39 % 35-52 Automated erythrocyte mean corpuscular volume 94 [ foz_us] 80-99 Automated erythrocyte mean corpuscular h emoglobin (mass per erythrocyte) 32 pg 25-34 Automated erythrocyte mean corpuscular h emoglobin concentration measurement (mass/volume) 34 g/dL 32-36 Automated erythrocyte distribution width ratio 12. 0 % 10.0- 14.5 Automated blood platelet count (count/volume) 214 10*3/uL 130-400 Automated blood platelet mean volume measurement 10.8 [foz_us] 7.4-10.4 Automated blood neutrophils/100 leukocytes 77 % 42-75 Automated blood lymphocytes/100 leukocytes 15 % 12-44 Blood monocytes/100 leukocytes 6 % 0-12 Automated blood eosinophils/100 leukocytes 2 % 0-10 Automated blood basophils/100 leukocytes 0 % 0-10 Blood neutrophils automated count (number/volume) 10.1 10*3 1.8-7.8 Blood lymphocytes automated count (number/volume) 2.0 10*3 1.0-4.0 Blood monocytes automated count (number/volume) 0. 8 10*3 0.0-1.0 Automated eosinophil count 0.3 10*3/uL 0 .0-0.3 Automated blood basophil count (count/volume) 0.0 10*3/uL 0.0-0.1 Comprehensive metabolic panel - 01/14/18 18:10 Serum or plasma sodium measurement (moles/volume) 139 mmol/L 135-145 Serum or plasma potassium measurement (moles/volume) 3.0 mmol/L 3.6-5.0 Serum or plasma chloride measurement (moles/volume) 105 mmol/L 98-107 Carbon dioxide 24 mmol/L 21-32 Serum or plasma anion gap determination (moles/volume) 10 mmol/L 5-14 Serum or plasma urea nitrogen measurement (mass/volume ) 12 mg/dL 7-18 Serum or plasma creatinine measurement (mass/volume) 0.66 mg/dL 0.60-1.30 Serum or plasma urea nitrogen/creatinine mass ratio 18 NRG Serum or plasma creatinine measurement w ith calculation of estimated glomerular filtration rate > NRG Serum or plasma glucose measurement (mass/volume) 138 mg/dL 70-105 Serum or plasma calcium measurement (mass/volume) 9.0 mg/dL 8.5-10.1 Serum or plasma total bilirubin measurement (mass/volu me) 0.7 mg/dL 0.1-1.0 Serum or plasma alkaline phosphatase endy surement (enzymatic activity/volume) 95 U/L 40-136 Serum or plasma aspartate aminotransfera se measurement (enzymatic activity/volume) 14 U/L 5-34 Serum or plasma alanine aminotransferase measurement (enzymatic activity/volume) 15 U/L 0-55 Serum or plasma protein measurement (mass/volume) 5.8 g/dL 6.4-8.2 Serum or plasma albumin measurement (mass/volume) 4.0 g/dL 3.2-4.5 Serum or plasma choriogonadotropin (preg concha test) detection - 01/14/18 18:10 Serum or plasma choriogonadotropin ( test) de tection NEGATIVE NEGATIVE Complete urinalysis with reflex to cultu re - 01/14/18 19:25 Urine color determination RED NRG Urine clarity determination VERY CLOUDY NRG Urine pH measurement by test strip 7 5-9 Specific gravity of urine by test strip 1.005 1.016-1.022 Urine protein assay by test strip, semi-quantitative 3+ NEGATIVE Urine glucose detection by automated test strip NE GATIVE NEGATIVE Erythrocytes detection in urine sediment by light micr oscopy 5+ NEGATIVE Urine ketones detection by automated test strip NE GATIVE NEGATIVE Urine nitrite detection by test strip NEGATIVE NEGATIVE Urine total bilirubin detection by test strip NEGA TIVE NEGATIVE Urine urobilinogen measurement by automated test strip (mass/volume) NORMAL NORMAL Urine leukocyte esterase detection by dipstick 3+ NEGATIVE Automated urine sediment erythrocyte cou nt by microscopy (number/high power field) [HPF] NRG Automated urine sediment leukocyte count by microscopy (number/high power field) TNTC NRG Bacteria detection in urine sediment by light microsco py MODERATE NRG Squamous epithelial cells detection in u rine sediment by light microscopy >50 NRG Crystals detection in urine sediment by light microsco py NONE NRG Casts detection in urine sediment by light microscopy NONE NRG Mucus detection in urine sediment by light microscopy NEGATIVE NRG Complete urinalysis with reflex to culture YES NRG Urine drug screening test - 01/14/18 19: 25 Urine phencyclidine detection by screening method NEGATIVE NEGATIVE Urine benzodiazepines detection by screening method POSITIVE NEGATIVE Urine cocaine detection NEGATIVE NEGATI VE Urine amphetamines detection by screening method P OSITIVE NEGATIVE Urine methamphetamine detection by screening method POSITIVE NEGATIVE Urine cannabinoids detection by screening method N EGATIVE NEGATIVE Urine opiates detection by screening method POSITI VE NEGATIVE Urine barbiturates detection NEGATIVE N EGATIVE Screening urine tricyclic antidepressants detection NEGATIVE NEGATIVE Urine methadone detection by screening method NEGA TIVE NEGATIVE Urine oxycodone detection NEGATIVE NEGA TIVE Urine propoxyphene detection NEGATIVE N EGATIVE Bacterial urine culture - 01/14/18 19:25 Bacterial urine culture SEE COMMEN NRG COLONY COUNT . NRG FTX;REPORTABLE SENSITIVITY REPORTED 01/16 08:33 NRG Bacterial susceptibility panel - 8 19:25 Gentamicin susceptibility test by minimum inhibitory c oncentration <= NRG Trimethoprim/sulfamethoxazole susceptibi lity test by minimum inhibitoryconcentration S NRG Ampicillin susceptibility test by minimum inhibitory c oncentration <= NRG Tobramycin susceptibility test by minimum inhibitory c oncentration <= NRG Cefazolin susceptibility test by minimum inhibitory co ncentration <= NRG Ceftriaxone susceptibility test by minimum inhibitory concentration <= NRG Ampicillin/sulbactam susceptibility test by minimum inhibitory concentration <= NRG Piperacillin/tazobactam susceptibility t est by minimum inhibitory concentration S NRG Ciprofloxacin susceptibility test by minimum inhibitor y concentration <= NRG Meropenem susceptibility test by minimum inhibitory co ncentration <= NRG Nitrofurantoin susceptibility test by mi nimum inhibitory concentration <= NRG Aztreonam susceptibility test by minimum inhibitory co ncentration <= NRG Extended spectrum beta lactamase (ESBL) producing bacteria susceptibility test by minimum inhibitory concentration - NRG Bacteria identification in genital speci men by aerobe culture - 01/14/18 20:20 QUANTITY OF GROWTH Moderate Growth NRG Bacteria identification in genital specimen by aerobe culture [id number] NRG Microscopic examination by SANTIAGO preparati on - 01/14/18 20:20 Microscopic examination by SANTIAGO preparation TNP NRG Microscopic examination by wet preparati on - 01/14/18 20:20 WET PREP RESULTS 01/15/18 21:31 BY IA NR Neisseria gonorrhoeae DNA detection by p robe and signal amplification method - 01/14/18 20:20 Gonorrhea amp DNA-urine Dectected Not D etected Chlamydia trachomatis DNA detection by p robe and signal amplification method - 01/14/18 20:20 Chlamydia trachomatis DNA detection by p robe and target amplification method Detected Not Detected Gram stain microscopy - 03/21/19 02:05 Gram stain microscopy No bacteria seen NRG Bacteria identification in wound by cult ure - 03/21/19 02:05 Bacteria identification in wound by culture [id number] NRG FREE TEXT EXTERNAL SUSCEPTIBILITY REPORTED 03/23/19 12:50 NRG QUANTITY OF GROWTH FEW NRG FREE TEXT ENTRY 2 ID REPORTED 03/22/19 13:15 NRG Dirithromycin susceptibility test by dis k diffusion - 03/21/19 02:05 Oxacillin susceptibility test by minimum inhibitory co ncentration > NRG Clindamycin susceptibility test by minimum inhibitory concentration <= NRG Erythromycin susceptibility test by minimum inhibitory concentration > NRG Trimethoprim/sulfamethoxazole susceptibi lity test by minimum inhibitoryconcentration <= NRG Vancomycin susceptibility test by minimum inhibitory c oncentration 1 NRG Levofloxacin susceptibility test by minimum inhibitory concentration 4 NRG Rifampin susceptibility test by minimum inhibitory con centration <= NRG Cefazolin susceptibility test by minimum inhibitory co ncentration > NRG Linezolid susceptibility test by minimum inhibitory co ncentration 2 NRG Penicillin G susceptibility test by minimum inhibitory concentration > NRG Moxifloxacin susceptibility test by minimum inhibitory concentration 2 NRG Minocycline susc ALANIS <= NRG CULTURE, GENITAL - 09/18/19 13:33 CULTURE, GENITAL SEE NOTE NRG GC/CHLAMYDIA (SWAB OR URINE)-RAPID - 01/02 13:33 CHLAMYDIA TRACHOMATIS RNA, TMA DETECTED NOT DETECTED NEISSERIA GONORRHOEAE RNA, TMA NOT DETECTED NOT DETECTED COMMENT NRG CULTURE, VIRAL (HSV W/TYPING) - 09/18/19 13:33 SOURCE: VAGINAL NRG HSV CULTURE: ISOLATED NRG HSV TYPE 2: ISOLATED NRG HSV TYPE 1: TNP NRG Complete blood count (CBC) with automate d white blood cell (WBC) differential - 05/12/20 13:22 Blood leukocytes automated count (number/volume) 4.8 10*3/uL 4.3-11.0 Blood erythrocytes automated count (number/volume) 4.74 10*6/uL 4.35-5.85 Venous blood hemoglobin measurement (mass/volume) 14.1 g/dL 11.5-16.0 Blood hematocrit (volume fraction) 43 % 35-52 Automated erythrocyte mean corpuscular volume 90 [ foz_us] 80-99 Automated erythrocyte mean corpuscular h emoglobin (mass per erythrocyte) 30 pg 25-34 Automated erythrocyte mean corpuscular h emoglobin concentration measurement (mass/volume) 33 g/dL 32-36 Automated erythrocyte distribution width ratio 13. 8 % 10.0- 14.5 Automated blood platelet count (count/volume) 183 10*3/uL 130-400 Automated blood platelet mean volume measurement 10.8 [foz_us] 7.4-10.4 Automated blood neutrophils/100 leukocytes 29 % 42-75 Automated blood lymphocytes/100 leukocytes 47 % 12-44 Blood monocytes/100 leukocytes 18 % 0-12 Automated blood eosinophils/100 leukocytes 2 % 0-10 Automated blood basophils/100 leukocytes 4 % 0-10 Blood neutrophils automated count (number/volume) 1.4 10*3 1.8-7.8 Blood lymphocytes automated count (number/volume) 2.2 10*3 1.0-4.0 Blood monocytes automated count (number/volume) 0. 9 10*3 0.0-1.0 Automated eosinophil count 0.1 10*3/uL 0 .0-0.3 Automated blood basophil count (count/volume) 0.2 10*3/uL 0.0-0.1 Serum or plasma choriogonadotropin (preg concha test) detection - 05/12/20 13:22 Serum or plasma choriogonadotropin ( test) de tection NEGATIVE NEGATIVE Comprehensive metabolic panel - 05/12/20 13:22 Serum or plasma sodium measurement (moles/volume) 137 mmol/L 135-145 Serum or plasma potassium measurement (moles/volume) 3.1 mmol/L 3.6-5.0 Serum or plasma chloride measurement (moles/volume) 103 mmol/L 98-107 Carbon dioxide 25 mmol/L 21-32 Serum or plasma anion gap determination (moles/volume) 9 mmol/L 5-14 Serum or plasma urea nitrogen measurement (mass/volume ) 6 mg/dL 7-18 Serum or plasma creatinine measurement (mass/volume) 0.52 mg/dL 0.60-1.30 Serum or plasma urea nitrogen/creatinine mass ratio 12 NRG Serum or plasma creatinine measurement w ith calculation of estimated glomerular filtration rate > NRG Serum or plasma glucose measurement (mass/volume) 93 mg/dL 70-105 Serum or plasma calcium measurement (mass/volume) 8.2 mg/dL 8.5-10.1 Serum or plasma total bilirubin measurement (mass/volu me) 3.6 mg/dL 0.1-1.0 Serum or plasma alkaline phosphatase endy surement (enzymatic activity/volume) 252 U/L 40-136 Serum or plasma aspartate aminotransfera se measurement (enzymatic activity/volume) 3894 U/L 5-34 Serum or plasma protein measurement (mass/volume) 6.7 g/dL 6.4-8.2 Serum or plasma albumin measurement (mass/volume) 3.4 g/dL 3.2-4.5 CALCIUM CORRECTED 8.7 mg/dL 8.5-10.1 Serum or plasma C reactive protein measu rement (mass/volume) - 05/12/20 13:22 Serum or plasma C reactive protein measurement (mass/v olume) 1.55 mg/dL 0.00-0.50 Encounters ACCT No. Visit Date/Time Discharge Status Pt. Type Provider Facility Loc./Unit Complaint [id number] 06/19/2016 13:05:00 Document Registration [id number] 06/23/2017 19:43:00 06/23/2017 20:20: 00 DIS Outpatient Rodriguez, [facility] enter ER [id number] 05/21/2017 22:25:00 05/21/2017 23:30: 00 DIS Outpatient Rodriguez, [facility] [place] [id number] 05/21/2017 22:55:21 Document Registration [id number] 12/15/2019 16:31:00 020 23:59:59 CLS Outpatient KEMI MARIA MD [facility] FNS [id number] 03/21/2019 01:07:00 019 02:26:00 DIS Emergency YULISA BISI YAÑEZ [facility] ER SPIDER BITE [id number] 01/14/2018 17:01:00 018 21:11:00 DIS Emergency HO, [employer] [facility] ER SEVERE ABD PAIN [id number] 07/13/2017 11:04:00 017 23:59:59 CLS Preadmit ARSH MEDINA APRN [facility] RAD G43.909 [id number] 06/15/2017 18:13:00 017 22:13:00 DIS Emergency YULISA BISI YAÑEZ [facility] ER HEADACHE,FALLING ASLEEP WHILE STANDING [id number] 06/13/2017 09:58:00 23:59:59 CLS Emergency ALEX RODRIGUEZ HE[employer] ANALYST [facility] ER MIGRAINE [id number] 01/03/2017 20:44:00 00:59:00 DIS Emergency ELISA HARRISON YAJAIRA L [facility] ER MENSTRUATING X 1 MONTH ,PASSING CLOTS [id number] 09/27/2016 09:32:00 15:25:00 DIS Outpatient BRII LEIVA DO [facility] SDC CHOLECYSTITIS [id number] 08/20/2016 20:46:00 21:19:00 DIS Emergency ALEX RODRIGUEZ [employer] ANALYST [facility] ER SORE THROAT [id number] 07/22/2016 21:05:00 18:50:00 DIS Inpatient SETH SALEEM, KENNEDI Hoskins [facility] 4TH CELLULITIS OF ABD WALL; POST-OP WOUND INFECTION; [id number] 07/20/2016 22:31:00 00:52:00 DIS Emergency BISI MÁRQUEZ DO [facility] ER FALL/INCISION OPENING [id number] 07/15/2016 18:45:00 13:45:00 DIS Inpatient KENNEDI ANN MD [facility] LDRP INDUCTION [id number] 07/02/2016 15:55:00 20:28:00 DIS Outpatient REYES HERNANDEZ DO Via [facility]So TRAUMA,NON STRESS TEST [id number] 07/02/2016 14:26:00 15:40:00 DIS Emergency RHONDA SALEEM, MELANIE Arana [facility] ER FALL MED/LOW BACK PAIN 39WKS PG [id number] 06/22/2016 17:33:00 23:59:59 CLS Outpatient KENNEDI ANN MD [facility] WSo INJ TO STOMACH/WELLNESS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
== END 2020-05-12 12:28 | disposition left against medical advice (07) ==
LOC: EDUNIT# 12:14 → ER 12:15
DX: R82.998 Other abnormal findings in urine (principal); K13.79 Other lesions of oral mucosa; R52 Pain, unspecified

== ENCOUNTER 2020-05-12 12:31 | Emergency (ER) | payer MEDICAID, OTHER ==
[~2020-05-12] VITALS: Ht 160 cm; Wt 58.9 kg
[2020-05-12] MEDS ORDERED: NS IV 1000 ML 1,000 ML IV SCH (13:15)
[2020-05-12 13:28] LABS: BASOPHILS # (AUTO) 0.2 10^3/uL (0.0-0.1); BASOPHILS % (AUTO) 4 % (0-10); EOSINOPHILS # (AUTO) 0.1 10^3/uL (0.0-0.3); EOSINOPHILS % (AUTO) 2 % (0-10); HEMATOCRIT 43 % (35-52); HEMOGLOBIN 14.1 G/DL (11.5-16.0); LYMPHOCYTES # (AUTO) 2.2 X 10^3 (1.0-4.0); LYMPHOCYTES % (AUTO) 47 % (12-44); MEAN CORPUSCULAR HEMOGLOBIN 30 PG (25-34); MEAN CORPUSCULAR HGB CONC 33 G/DL (32-36); MEAN CORPUSCULAR VOLUME 90 FL (80-99); MEAN PLATELET VOLUME 10.8 FL (7.4-10.4); MONOCYTES # (AUTO) 0.9 X 10^3 (0.0-1.0); MONOCYTES % (AUTO) 18 % (0-12); NEUTROPHILS # (AUTO) 1.4 X 10^3 (1.8-7.8); NEUTROPHILS % (AUTO) 29 % (42-75); PLATELET COUNT 183 10^3/uL (130-400); RED CELL DISTRIBUTION WIDTH 13.8 % (10.0-14.5); WHITE BLOOD COUNT 4.8 10^3/uL (4.3-11.0)
--- NOTE | 2020-05-12 13:40 | ED General ---
General Chief Complaint: General Problems/Pain Stated Complaint: DARK URINE,MOUTH SORES;BODY ACHES Nursing Triage Note: pt reports mouth ulcers x5 days, body aches, always being cold, and dark urine x5 days. Nursing Sepsis Screen: No Definite Risk Source of Information: Patient Exam Limitations: No Limitations History of Present Illness Date Seen by Provider: May 12, 2020 Time Seen by Provider: 13:39 Initial Comments 2-3 days of sores in her mouth, allover body aches, dark urine. no cough no shortness of breath. Timing/Duration: 2-3 Days Severity: Moderate Allergies and Home Medications Allergies Coded Allergies: dexamethasone (Unverified Adverse Reaction, Intermediate, 09/04/13) Home Medications Butalb/Acetaminophen/Caffeine 1 Each Capsule, 1-2 EACH PO Q6H PRN for HEADACHE Prescribed by: BISI MÁRQUEZ on 06/15/172126 Metronidazole 500 Mg Tablet, 500 MG PO BID Prescribed by: MELVINA TEAGUE on 01/14/182057 Naproxen 500 Mg Tablet, 500 MG PO BID Prescribed by: BISI MÁRQUEZ on 03/21/19210 Ondansetron 4 Mg Tab.rapdis, 4 MG PO Q4H Prescribed by: BISI MÁRQUEZ on 06/15/172126 Sulfamethoxazole/Trimethoprim 1 Each Tablet, 1 EACH PO BID Prescribed by: MELVINA TEAGUE on 01/14/182057 Sulfamethoxazole/Trimethoprim 1 Each Tablet, 1 EACH PO BID Prescribed by: BISI MÁRQUEZ on 03/21/19210 Patient Home Medication List Home Medication List Reviewed: Yes Review of Systems Review of Systems Constitutional: see HPI EENTM: see HPI, ear pain, mouth pain Respiratory: no symptoms reported Cardiovascular: no symptoms reported Genitourinary: no symptoms reported Musculoskeletal: no symptoms reported Skin: no symptoms reported Psychiatric/Neurological: No Symptoms Reported Hematologic/Lymphatic: No Symptoms Reported Immunological/Allergic: no symptoms reported Past Byllgug-Axiyxh-Cqavvj Hx Patient Social History Alcohol Use: Denies Use Number of Drinks Today: Alcohol Beverage of Choice: Wine Recreational Drug Use: No Drug of Choice: methamphetamines Smoking Status: Former Smoker Type Used: Cigarettes Former Smoker, Quit: Oct 17, 2015 Recent Foreign Travel: No Contact w/Someone Who Travel: No Recent Infectious Disease Expo: No Recent Hopitalizations: Yes ( et hematoma removal) Physical Abuse: No Sexual Abuse: No Immunizations Up To Date Tetanus Booster (TDap): Less than 5yrs Date of Influenza Vaccine: Jun 17, 2016 Seasonal Allergies Seasonal Allergies: No Past Medical History Surgeries: Yes (KIDNEY STONE REMOVAL/LITHORIPSY; X 2) Section, Gallbladder, Renal, Tonsillectomy Respiratory: No Cardiac: No Neurological: Yes Headaches /Migraines Reproductive Disorders: No Female Reproductive Disorders: Menstrual Problems Sexually Transmitted Disease: No HIV/AIDS: No Genitourinary: Yes (LUPUS--AFFECTING KIDNEYS, PER PT) Kidney Stones Gastrointestinal: Yes Gall Bladder Disease Musculoskeletal: No (LUPUS) Endocrine: Yes Lupus HEENT: Yes Tonsilitis Cancer: No Psychosocial: No Integumentary: No Blood Disorders: No Family Medical History Patient reports no known family medical history. No Pertinent Family Hx Physical Exam Vital Signs Vital Signs - First Documented 05/12/20 12:44 Temp 36.7 Pulse 107 Resp 15 B/P (MAP) 123/97 (106) Pulse Ox 98 Capillary Refill : Less Than 3 Seconds Height, Weight, BMI Height: 5'3.00" Weight: 110lbs. 0.0oz. 49.498706ce; 23.00 BMI Method:Stated General Appearance: No Apparent Distress, WD/WN Eyes: Bilateral Eye Normal Inspection, Bilateral Eye PERRL, Bilateral Eye EOMI HEENT: PERRL/EOMI, TMs Normal, Other (small ulcerated area underneath the tongue) Respiratory: No Accessory Muscle Use, No Respiratory Distress Cardiovascular: Regular Rate, Rhythm, Normal Peripheral Pulses Gastrointestinal: Normal Bowel Sounds, Non Tender, Soft Extremity: Normal Capillary Refill, Normal Inspection Neurologic/Psychiatric: Alert, Oriented x3 Skin: Normal Color, Warm/Dry Progress/Results/Core Measures Suspected Sepsis Recent Fever Within 48 Hours: No Infection Criteria Present: None New/Unexplained Altered Menta: No Sepsis Screen: No Definite Risk SIRS Temperature: Pulse: 107 Respiratory Rate: 15 Laboratory Tests 05/12/20 13:22: White Blood Count 4.8 Blood Pressure 123 /97 Mean: 106 Laboratory Tests 05/12/20 13:22: Creatinine 0.52L, INR Comment 1.1, Platelet Count 183, Total Bilirubin 3.6H Results/Orders Lab Results Laboratory Tests Test 05/12/20 13:22 05/12/20 14:30 Range/Units White Blood Count 4.8 4.3-11.0 10^3/uL Red Blood Count 4.74 4.35-5.85 10^6/uL Hemoglobin 14.1 11.5-16.0 G/DL Hematocrit 43 35-52 % Mean Corpuscular Volume 90 80-99 FL Mean Corpuscular Hemoglobin 30 25-34 PG Mean Corpuscular Hemoglobin Concent 33 32-36 G/DL Red Cell Distribution Width 13.8 10.0-14.5 % Platelet Count 183 130-400 10^3/uL Mean Platelet Volume 10.8 H 7.4-10.4 FL Neutrophils (%) (Auto) 29 L 42-75 % Lymphocytes (%) (Auto) 47 H 12-44 % Monocytes (%) (Auto) 18 H 0-12 % Eosinophils (%) (Auto) 2 0-10 % Basophils (%) (Auto) 4 0-10 % Neutrophils # (Auto) 1.4 L 1.8-7.8 X 10^3 Lymphocytes # (Auto) 2.2 1.0-4.0 X 10^3 Monocytes # (Auto) 0.9 0.0-1.0 X 10^3 Eosinophils # (Auto) 0.1 0.0-0.3 10^3/uL Basophils # (Auto) 0.2 H 0.0-0.1 10^3/uL Neutrophils % (Manual) 36 % Lymphocytes % (Manual) 46 % Monocytes % (Manual) 12 % Eosinophils % (Manual) 1 % Basophils % (Manual) 0 % Band Neutrophils 0 % Reactive Lymphocytes 5 % Blood Morphology Comment NORMAL Prothrombin Time 14.3 12.2-14.7 SEC INR Comment 1.1 0.8-1.4 Sodium Level 137 135-145 MMOL/L Potassium Level 3.1 L 3.6-5.0 MMOL/L Chloride Level 103 98-107 MMOL/L Carbon Dioxide Level 25 21-32 MMOL/L Anion Gap 9 5-14 MMOL/L Blood Urea Nitrogen 6 L 7-18 MG/DL Creatinine 0.52 L 0.60-1.30 MG/DL Estimat Glomerular Filtration Rate > 60 BUN/Creatinine Ratio 12 Glucose Level 93 70-105 MG/DL Calcium Level 8.2 L 8.5-10.1 MG/DL Corrected Calcium 8.7 8.5-10.1 MG/DL Total Bilirubin 3.6 H 0.1-1.0 MG/DL Aspartate Amino Transf (AST/SGOT) 3894 H 5-34 U/L Alanine Aminotransferase (ALT/SGPT) 3706 H 0-55 U/L Alkaline Phosphatase 252 H 40-136 U/L C-Reactive Protein High Sensitivity 1.55 H 0.00-0.50 MG/DL Total Protein 6.7 6.4-8.2 GM/DL Albumin 3.4 3.2-4.5 GM/DL Serum Test, Qualitative NEGATIVE NEGATIVE Acetaminophen Level < 10 L 10-30 UG/ML Serum Alcohol < 10 <10 MG/DL Hepatitis A IgM Antibody Reactive H Non-Reactive Hepatitis B Surface Antigen Non-Reactive Non-Reactive Hepatitis B Core IgM Antibody Non-Reactive Non-Reactive Hepatitis C Antibody Non-Reactive Non-Reactive Urine Color DARK YELLOW Urine Clarity CLEAR Urine pH 7.0 5-9 Urine Specific [place] 1.010 L 1.016-1.022 Urine Protein NEGATIVE NEGATIVE Urine Glucose (UA) TRACE H NEGATIVE Urine Ketones NEGATIVE NEGATIVE Urine Nitrite NEGATIVE NEGATIVE Urine Bilirubin 2+ H NEGATIVE Urine Urobilinogen 1.0 < = 1.0 MG/DL Urine Leukocyte Esterase NEGATIVE NEGATIVE Urine RBC (Auto) NEGATIVE NEGATIVE Urine RBC NONE /HPF Urine WBC 0-2 /HPF Urine Squamous Epithelial Cells 10-25 H /HPF Urine Crystals NONE /LPF Urine Bacteria TRACE /HPF Urine Casts NONE /LPF Urine Mucus NEGATIVE /LPF Urine Culture Indicated NO Urine Opiates Screen NEGATIVE NEGATIVE Urine Oxycodone Screen NEGATIVE NEGATIVE Urine Methadone Screen NEGATIVE NEGATIVE Urine Propoxyphene Screen NEGATIVE NEGATIVE Urine Barbiturates Screen NEGATIVE NEGATIVE Ur Tricyclic Antidepressants Screen NEGATIVE NEGATIVE Urine Phencyclidine Screen NEGATIVE NEGATIVE Urine Amphetamines Screen POSITIVE H NEGATIVE Urine Methamphetamines Screen POSITIVE H NEGATIVE Urine Benzodiazepines Screen NEGATIVE NEGATIVE Urine Cocaine Screen NEGATIVE NEGATIVE Urine Cannabinoids Screen NEGATIVE NEGATIVE My Orders Orders - ALEX RODRIGUEZ DISASSEMBLER Cbc With Automated Diff (05/12/20 13:02) Comprehensive Metabolic Panel (05/12/20 13:02) Ua Culture If Indicated (05/12/20 13:02) Hcg,Qualitative Serum (05/12/20 13:02) Hs C Reactive Protein (05/12/20 13:02) Ed Iv/Invasive Line Start (05/12/20 13:02) Ns Iv 1000 Ml (Sodium Chloride 0.9%) (05/12/20 13:15) Manual Differential (05/12/20 13:22) Lidocaine 2% Viscous 15 Ml (Xylocaine Vi (05/12/20 13:45) Ketorolac Injection (Toradol Injection) (05/12/20 13:45) Potassium Chloride (Tablet) (Klor Con Ta (05/12/20 14:00) Hepatitis Panel Acute (05/12/20 13:55) Drug Screen Stat (Urine) (05/12/20 13:55) Alcohol (05/12/20 14:12) Acetaminophen (05/12/20 14:12) Protime With Inr (05/12/20 14:12) Medications Given in ED Vital Signs/I&O Capillary Refill : Less Than 3 Seconds Blood Pressure Mean: 106 Departure Communication (Admissions) I discussed the elevated liver enzymes with her. She states that she is only been using about 2 All strength Tylenol every 8 hours or so, nothing that she feels is excessive. She's been taking this for the sores in mouth. She denies abdominal pain and she has a history of cholecystectomy. I discussed the methamphetamine is with her, she is flabbergasted that it is in her urine. Hasn't used this for "a long time". When I asked whether she injects or smokes it, she does not answer. Impression Primary Impression: Hepatitis Disposition: 01 HOME, SELF-CARE Condition: Stable Departure-Patient Inst. Decision time for Depature: 15:05 Referrals: ANNA GUADARRAMA MD (PCP) Primary Care Physician SOHAIL BACK (Family) Primary Care Physician Patient Instructions: Toxic Hepatitis (DC) Add. Discharge Instructions: 1. Return to ER for any concerns. Follow-up with Dr. Salinas tomorrow at 9:40 AM. ALEX RODRIGUEZ APRN May 12, 2020 13:40
[2020-05-12 13:45] LABS: ALBUMIN 3.4 GM/DL (3.2-4.5); CHLORIDE 103 MMOL/L (98-107); POTASSIUM 3.1 MMOL/L (3.6-5.0); SODIUM 137 MMOL/L (135-145)
[2020-05-12] MEDS ORDERED: KETOROLAC 30 MG/ML VIAL IVP ONE (13:45)
[2020-05-12] MEDS ORDERED: LIDOCAINE 2% VISCOUS 15 ML UDC PO ONE (13:45)
[2020-05-12 13:46] LABS: CALCIUM 8.2 MG/DL (8.5-10.1)
[2020-05-12 13:48] LABS: GLUCOSE 93 MG/DL (70-105); TOTAL PROTEIN 6.7 GM/DL (6.4-8.2)
[2020-05-12 13:49] LABS: BILIRUBIN,TOTAL 3.6 MG/DL (0.1-1.0); CARBON DIOXIDE 25 MMOL/L (21-32)
[2020-05-12 13:51] LABS: ALKALINE PHOSPHATASE 252 U/L (40-136); CREATININE SERUM 0.52 MG/DL (0.60-1.30); GFR ESTIMATED > 60
[2020-05-12 13:52] LABS: BUN/CREATININE RATIO 12
[2020-05-12 13:54] LABS: ALANINE AMINOTRANSFERASE 3706 U/L (0-55)
[2020-05-12] MEDS ORDERED: KCL 10 MEQ TAB (MICRO K) PO ONE (14:00)
[2020-05-12 14:03] LABS: BAND NEUTROPHILS 0 %; LYMPHOCYTES % (MANUAL) 46 %; MONOCYTES % (MANUAL) 12 %; NEUTROPHILS % (MANUAL) 36 %
[2020-05-12 14:04] LABS: BASOPHILS % (MANUAL) 0 %; EOSINOPHILS % (MANUAL) 1 %; RBC MORPH NORMAL; REACTIVE LYMPHOCYTES 5 %
[2020-05-12 14:29] LABS: INR 1.1 (0.8-1.4); PROTHROMBIN TIME PATIENT 14.3 SEC (12.2-14.7)
[2020-05-12 14:35] LABS: ACETAMINOPHEN < 10 UG/ML (10-30)
[2020-05-12 14:48] LABS: CLARITY,URINE CLEAR; COLOR,URINE DARK YELLOW; GLUCOSE, URINE (UA) TRACE (NEGATIVE); KETONES,URINE NEGATIVE (NEGATIVE); LEUKOCYTE ESTERASE ,URINE NEGATIVE (NEGATIVE); NITRITE,URINE NEGATIVE (NEGATIVE); PROTEIN,URINE NEGATIVE (NEGATIVE)
[2020-05-12 15:02] LABS: BENZODIAZEPINES SCREEN URINE NEGATIVE (NEGATIVE); COCAINE SCREEN URINE NEGATIVE (NEGATIVE)
[2020-05-12 15:03] LABS: AMPHETAMINE SCREEN, URINE POSITIVE (NEGATIVE); BARBITURATE SCREEN URINE NEGATIVE (NEGATIVE); CANNABINOID SCREEN, URINE NEGATIVE (NEGATIVE); METHADONE STAT NEGATIVE (NEGATIVE); METHAMPHETAMINE SCREEN URINE S POSITIVE (NEGATIVE); OPIATE SCREEN URINE NEGATIVE (NEGATIVE); OXYCODONE STAT NEGATIVE (NEGATIVE); PROPOXYPHENE STAT NEGATIVE (NEGATIVE); TRICYCLIC ANTIDEPRESSANTS SCRE NEGATIVE (NEGATIVE)
[2020-05-12 15:15] VITALS: BP 115/93
[2020-05-12 15:18] LABS: BACTERIA,URINE TRACE /HPF; BILIRUBIN,URINE 2+ (NEGATIVE); WBC,URINE 0-2 /HPF
[2020-05-12 22:09] LABS: HEPATITIS C ANTIBODY C Non-Reactive (Non-Reactive)
== END 2020-05-12 15:15 | disposition home or self-care (01) ==
LOC: EDUNIT# 12:31 → ER 12:33
DX: K75.9 Inflammatory liver disease, unspecified (principal); G43.909 Migraine, unspecified, not intractable, without status migrainosus; Z88.8 Allergy status to other drugs, medicaments and biological substances; Z87.891 Personal history of nicotine dependence
CPT/HCPCS: 80053; 80074; 80306; 81000; 84703; 85007; 85027; 85610; 86141; 99283; G0480 ×2; 36415; 80320; 80329

== ENCOUNTER 2020-07-18 17:02 | Emergency (ER) | payer OTHER ==
[~2020-07-18] VITALS: Ht 165.1 cm; Wt 54.4 kg
[~2020-07-18 17:02] MED LIST changes: -OXYC-465 PO; +OXYC-556 PO
[2020-07-18 17:14] VITALS: BP 153/109
--- NOTE | 2020-07-18 17:35 | ED GU-Female ---
General Stated Complaint: SYPHILIS EXPOSURE Source: patient Exam Limitations: no limitations History of Present Illness Date Seen by Provider: Jul 18, 2020 Time Seen by Provider: 17:21 Initial Comments Patient is a 25-year-old female who presents to the emergency room today with a chief complaint of concern for syphilis exposure. Patient states that she had unprotected sex with a partner 2 weeks ago. She states that her partner came to her today with syphilis results and told her that he had been treated. Patient denies any abnormal vaginal bleeding. She has mildly increased vaginal discharge. She denies any sores or lesions to her perineum/or vagina at all. She is never had a sexually transmitted infection in the past. She denies any fevers chills, nausea vomiting. She has had some mildly increased cramping she believes is related to her menses. All other review of systems reviewed and negative except as stated. Timing/Duration: this afternoon Severity/Quality: cramping Location: suprapubic Radiation: none Activities at Onset: none Prior Genitourinary Problems: none Sexual Slick History: less than 2 months ago, single partner Allergies and Home Medications Allergies Coded Allergies: dexamethasone (Unverified Adverse Reaction, Intermediate, 09/04/13) Home Medications Butalb/Acetaminophen/Caffeine 1 Each Capsule, 1-2 EACH PO Q6H PRN for HEADACHE Prescribed by: BISI MÁRQUEZ on 06/15/172126 Metronidazole 500 Mg Tablet, 500 MG PO BID Prescribed by: MELVINA TEAGUE on 01/14/182057 Naproxen 500 Mg Tablet, 500 MG PO BID Prescribed by: BISI MÁRQUEZ on 03/21/19210 Ondansetron 4 Mg Tab.rapdis, 4 MG PO Q4H Prescribed by: BISI MÁRQUEZ on 06/15/172126 Sulfamethoxazole/Trimethoprim 1 Each Tablet, 1 EACH PO BID Prescribed by: MELVINA TEAGUE on 01/14/182057 Sulfamethoxazole/Trimethoprim 1 Each Tablet, 1 EACH PO BID Prescribed by: BISI MÁRQUEZ on 03/21/19210 Patient Home Medication List Home Medication List Reviewed: Yes Review of Systems Review of Systems Constitutional: no symptoms reported EENTM: no symptoms reported Respiratory: no symptoms reported Cardiovascular: no symptoms reported Gastrointestinal: no symptoms reported Genitourinary: other (Mild increased vaginal discharge) : No Musculoskeletal: no symptoms reported Skin: no symptoms reported Psychiatric/Neurological: No Symptoms Reported Past Xsngtrd-Rzsolj-Kbvudd Hx Patient Social History Alcohol Beverage of Choice: Wine Drug of Choice: methamphetamines Type Used: Cigarettes Former Smoker, Quit: Oct 17, 2015 Recent Foreign Travel: No Contact w/Someone Who Travel: No Recent Hopitalizations: Yes ( et hematoma removal) Immunizations Up To Date Tetanus Booster (TDap): Less than 5yrs Date of Influenza Vaccine: Jun 17, 2016 Seasonal Allergies Seasonal Allergies: No Past Medical History Surgeries: Yes (KIDNEY STONE REMOVAL/LITHORIPSY; X 2) Section, Gallbladder, Renal, Tonsillectomy Respiratory: No Cardiac: No Neurological: Yes Headaches /Migraines Reproductive Disorders: No Female Reproductive Disorders: Menstrual Problems Sexually Transmitted Disease: No HIV/AIDS: No Genitourinary: Yes (LUPUS--AFFECTING KIDNEYS, PER PT) Kidney Stones Gastrointestinal: Yes Gall Bladder Disease Musculoskeletal: No (LUPUS) Endocrine: Yes Lupus HEENT: Yes Tonsilitis Cancer: No Psychosocial: No Integumentary: No Blood Disorders: No Family Medical History Patient reports no known family medical history. No Pertinent Family Hx Physical Exam Vital Signs Vital Signs - First Documented 07/18/20 17:14 Temp 36.9 Pulse 100 Resp 20 B/P (MAP) 153/109 (124) Pulse Ox 99 O2 Delivery Room Air Capillary Refill : Height, Weight, BMI Height: 5'3.00" Weight: 110lbs. 0.0oz. 49.565541kb; 23.00 BMI Method:Stated General Appearance: WD/WN, no apparent distress HEENT: other (Small less than one quarter of a centimeter lesion/ulcer noted to the anterior tip of the tongue more to the left side) Neck: full range of motion Cardiovascular: regular rate, rhythm Respiratory: lungs clear, normal breath sounds, no respiratory distress, no accessory muscle use Gastrointestinal: normal bowel sounds, non tender, soft Genital/Rectal: other (Deferred patient declined pelvic exam) Pelvic: other (Patient declined pelvic exam) Back: normal inspection Extremities: normal range of motion, normal inspection, no pedal edema Neurologic/Psychiatric: assistant front end manager II-XII nml as tested, no motor/sensory deficits, alert, normal mood/affect, oriented x 3 Skin: normal color, warm/dry Progress/Results/Core Measures Suspected Sepsis SIRS Temperature: Pulse: Respiratory Rate: Blood Pressure / Mean: Results/Orders Lab Results Laboratory Tests Test 07/18/20 13:22 Range/Units My Orders Orders - TACOS KILPATRICK MD Syphilis Antibody Screen (07/18/20 17:40) Neis John Dna Urine Test (07/18/20 17:40) Vital Signs/I&O 07/18/20 17:14 Temp 36.9 Pulse 100 Resp 20 B/P (MAP) 153/109 (124) Pulse Ox 99 O2 Delivery Room Air Capillary Refill : Progress Note : Time: 17:48 Progress Note Patient seen and examined by me, 25-year-old female with a concern for syphilis exposure. Evaluation today includes a physical exam without a pelvic exam as the patient declined this. Patient is concern for exposure to partner with unprotected sex 2 weeks ago. Patient is also concerned about gonorrhea and chlamydia. I discussed laboratory testing with the lab, we will send off a syphilis antibody screen that we will reflex to a non-treponemal test in the event that she is positive. Will advise her to call the emergency room in 2 days for a follow-up of these results. We can fax these to the [facility] for definitive treatment of Bicillin and medications for gonorrhea and chlamydia if these are indicated. I discussed all this with the patient. She is agreeable with the plan. I have encouraged safe sex practices. All questions are sought and answered the patient is stable for discharge. Departure Impression Primary Impression: Exposure to syphilis Disposition: 01 HOME, SELF-CARE Condition: Stable Departure-Patient Inst. Decision time for Depature: 17:52 Referrals: NO,LOCAL PHYSICIAN (PCP/Family) Primary Care Physician Patient Instructions: Sexually-Transmitted Diseases (DC) Add. Discharge Instructions: Continue to use safe sex practices such as condoms with sexual partners. We have tested you today for syphilis these results will be back in 2 days or so. If you have not heard from us by Tuesday please call the emergency department at area code [phone] to follow-up your results. Return to the emergency department for any increased pain, fevers, ulcerations or sores or any other emergent concerning symptoms TACOS KILPATRICK MD Jul 18, 2020 17:35
== END 2020-07-18 18:08 | disposition home or self-care (01) ==
LOC: ER 17:02
DX: A53.9 Syphilis, unspecified (principal); Z87.891 Personal history of nicotine dependence; Z88.8 Allergy status to other drugs, medicaments and biological substances
CPT/HCPCS: 36415; 86592; 86780; 87591; 99282

== ENCOUNTER 2021-09-10 17:48 | Emergency (ER) | payer SELFPAY ==
[~2021-09-10] VITALS: Ht 160 cm; Wt 56.7 kg
[~2021-09-10 17:48] MED LIST changes: +SERT-413 PO; -SERT50TA9 PO; -SULF1TAB35 PO
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
[2021-09-10] MEDS ORDERED: LISI5TAB20 PO (18:42)
[2021-09-10] MEDS ORDERED: CEPH500T PO (18:42)
[2021-09-10] MEDS ORDERED: TETANUS,DIPTH,PERTUSS P/F (BOOSTRIX) 0.5 ML VIAL IM ONE (18:45)
[2021-09-10] MEDS ORDERED: KETOROLAC 60 MG/2 ML VIAL IM ONE (18:45)
[2021-09-10 19:22] VITALS: BP 160/119
== END 2021-09-10 19:22 | disposition home or self-care (01) ==
LOC: EDUNIT# 17:48 → ER 17:50
DX: S01.81XA Laceration without foreign body of other part of head, initial encounter (principal); I10 Essential (primary) hypertension; Z23 Encounter for immunization; W22.8XXA Striking against or struck by other objects, initial encounter
CPT/HCPCS: 12001; 90715

== ENCOUNTER 2022-01-20 07:27 | Emergency (ER) | payer SELFPAY ==
[~2022-01-20] VITALS: Ht 160 cm; Wt 58.0 kg
[~2022-01-20 07:27] MED LIST changes: +CEPH500T PO; +LISI5TAB20 PO
[2022-01-20 07:45] VITALS: BP 173/112
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
[2022-01-20] MEDS ORDERED: fluCOnazole (DIFLUCAN) 100 MG TAB PO STA (08:45)
[2022-01-20] MEDS ORDERED: FLUC200T PO (08:45)
== END 2022-01-20 09:19 | disposition home or self-care (01) ==
LOC: EDUNIT# 07:27 → ER 07:28
DX: B35.4 Tinea corporis (principal)
CPT/HCPCS: 99283

== ENCOUNTER 2022-07-19 00:21 | Emergency (ER) | payer MEDICAID, OTHER ==
[~2022-07-19] VITALS: Ht 160 cm; Wt 59.0 kg
[~2022-07-19 00:21] MED LIST changes: +CYCL10TA25 PO; +FLUC200T PO; +NAPR500T8 PO; +TRAM-42 PO
[2022-07-19 00:56] LABS: BASOPHILS # (AUTO) 0.1 10^3/uL (0.0-0.1); BASOPHILS % (AUTO) 0 % (0-10); EOSINOPHILS # (AUTO) 0.2 10^3/uL (0.0-0.3); EOSINOPHILS % (AUTO) 1 % (0-10); HEMATOCRIT 44 % (35-52); HEMOGLOBIN 14.6 g/dL (11.5-16.0); LYMPHOCYTES # (AUTO) 1.9 10^3/uL (1.0-4.0); LYMPHOCYTES % (AUTO) 13 % (12-44); MEAN CORPUSCULAR HEMOGLOBIN 31 pg (25-34); MEAN CORPUSCULAR HGB CONC 33 g/dL (32-36); MEAN CORPUSCULAR VOLUME 93 fL (80-99); MEAN PLATELET VOLUME 11.1 fL (9.0-12.2); MONOCYTES # (AUTO) 0.8 10^3/uL (0.0-1.0); MONOCYTES % (AUTO) 5 % (0-12); NEUTROPHILS # (AUTO) 11.6 10^3/uL (1.8-7.8); NEUTROPHILS % (AUTO) 80 % (42-75); PLATELET COUNT 262 10^3/uL (130-400); WHITE BLOOD COUNT 14.6 10^3/uL (4.3-11.0)
[2022-07-19 01:10] LABS: ALBUMIN 4.7 GM/DL (3.2-4.5); CHLORIDE 106 MMOL/L (98-107); POTASSIUM 4.3 MMOL/L (3.6-5.0); SODIUM 137 MMOL/L (135-145)
[2022-07-19 01:11] LABS: AMYLASE 40 U/L (25-125); CALCIUM 9.3 MG/DL (8.5-10.1)
[2022-07-19 01:12] LABS: GLUCOSE 100 MG/DL (70-105); TOTAL PROTEIN 7.4 GM/DL (6.4-8.2)
[2022-07-19 01:13] LABS: CARBON DIOXIDE 22 MMOL/L (21-32)
[2022-07-19 01:14] LABS: BILIRUBIN,TOTAL 0.4 MG/DL (0.1-1.0)
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
[2022-07-19] MEDS ORDERED: HOLD METFORMIN - RECEIVED CONTRAST 20 ML VIAL IV SCH (01:15)
[2022-07-19] MEDS ORDERED: IOHEXOL 350 MG/ML 100 ML (OMNIPAQUE 350) VIAL IV ONE (01:15)
[2022-07-19] MEDS ORDERED: NS 100 ML (IVPB) BAG IV ONE (01:15)
[2022-07-19 01:16] LABS: ALKALINE PHOSPHATASE 79 U/L (40-136); CREATININE SERUM 0.71 MG/DL (0.60-1.30); GFR ESTIMATED 119
[2022-07-19 01:17] LABS: BUN/CREATININE RATIO 18
[2022-07-19 01:19] LABS: ALANINE AMINOTRANSFERASE 20 U/L (0-55); MAGNESIUM 1.9 MG/DL (1.6-2.4)
[2022-07-19 01:20] LABS: LIPASE 23 U/L (8-78)
[2022-07-19 01:34] LABS: EOSINOPHILS % (MANUAL) 2 %; LYMPHOCYTES % (MANUAL) 17 %; MONOCYTES % (MANUAL) 5 %; NEUTROPHILS % (MANUAL) 77 %; RBC MORPH NORMAL
[2022-07-19 02:21] LABS: BILIRUBIN,URINE NEGATIVE (NEGATIVE); CLARITY,URINE CLEAR; COLOR,URINE YELLOW; GLUCOSE, URINE (UA) NEGATIVE (NEGATIVE); KETONES,URINE NEGATIVE (NEGATIVE); LEUKOCYTE ESTERASE ,URINE 1+ (NEGATIVE); NITRITE,URINE NEGATIVE (NEGATIVE); PH,URINE 7.5 (5-9); PROTEIN,URINE NEGATIVE (NEGATIVE)
[2022-07-19 02:31] LABS: BACTERIA,URINE NEGATIVE /HPF
[2022-07-19 02:34] LABS: AMPHETAMINE SCREEN, URINE NEGATIVE (NEGATIVE); BARBITURATE SCREEN URINE NEGATIVE (NEGATIVE); BENZODIAZEPINES SCREEN URINE NEGATIVE (NEGATIVE); CANNABINOID SCREEN, URINE NEGATIVE (NEGATIVE); COCAINE SCREEN URINE NEGATIVE (NEGATIVE); METHADONE STAT NEGATIVE (NEGATIVE); OPIATE SCREEN URINE NEGATIVE (NEGATIVE); OXYCODONE STAT NEGATIVE (NEGATIVE); PROPOXYPHENE STAT NEGATIVE (NEGATIVE); TRICYCLIC ANTIDEPRESSANTS SCRE NEGATIVE (NEGATIVE)
[2022-07-19 03:15] VITALS: BP 168/110
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
== END 2022-07-19 03:15 ==
LOC: EDUNIT# 00:21 → ER 00:24
DX: S05.11XA Contusion of eyeball and orbital tissues, right eye, initial encounter (principal); S60.222A Contusion of left hand, initial encounter; S60.221A Contusion of right hand, initial encounter; R07.89 Other chest pain; F17.210 Nicotine dependence, cigarettes, uncomplicated; W50.0XXA Accidental hit or strike by another person, initial encounter
CPT/HCPCS: 70450; 70486; 71045; 71260; 72125; 73080; 73130; 74177; 80053; 80306; 81000; 82150; 83690; 83735; 84703; 85007; 85027; 87636; 93041; 99284; G0480; 36415; 80320

== ENCOUNTER 2022-08-31 19:00 | Emergency (ER) | payer SELFPAY ==
[2022-08-31] MEDS ORDERED: SULF1TAB38 PO (19:34)
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
[2022-08-31 19:50] VITALS: BP 184/90
== END 2022-08-31 19:52 | disposition home or self-care (01) ==
LOC: EDUNIT# 19:00 → ER 19:02
DX: L03.317 Cellulitis of buttock (principal); F17.290 Nicotine dependence, other tobacco product, uncomplicated; Z28.310 Unvaccinated for COVID-19
CPT/HCPCS: 99282